=== PATIENT | female | born 1950 | race Caucasian/White ===

== ENCOUNTER 2021-05-01 10:13 | Outpatient (REF) | payer MEDICARE, SELFPAY ==
[2021-05-01 13:57] LABS: Hemoglobin 13.1 g/dl (12.0-16.0); Mean Corpuscular HGB Conc 32.8 g/dl (31.0-35.0); Mean Corpuscular Hemoglobin 30.5 pg (27.0-33.0); Mean Platelet Volume 11.3 fL (9.4-12.3); Platelet Count 202 X10*3/uL (160-400); Red Cell Distribution Width 12.8 % (11.0-16.0); White Blood Count 6.4 X10*3/uL (4.8-10.8)
[2021-05-01 14:35] LABS: Alanine Aminotransferase 20 U/L (0-31); Albumin Level 4.1 g/dL (3.5-5.0); Alkaline Phosphatase 60 U/L (39-117); Anion Gap 11 (12-20); Aspartate Amino Transferase 18 U/L (5-31); Bilirubin Total 0.4 mg/dL (0.0-1.0); Blood Urea Nitrogen 21 mg/dL (9-16); Calcium 9.9 mg/dL (8.4-10.2); Carbon Dioxide 26 mmol/L (22-29); Chloride 108 mmol/L (96-108); Cholesterol 153 mg/dL; Estimated Glomerular Filt Rate 46; Glucose Fasting 83 mg/dL (60-99); HDL Cholesterol 52 mg/dL; LDL Cholesterol Calculated 67 mg/dl; Potassium 4.7 mmol/L (3.3-5.1); Sodium 140 mmol/L (135-145); Total Protein 6.5 g/dL (6.5-8.0); Triglycerides 172 mg/dL
[2021-05-01 14:46] LABS: TSH reflex Free T4 1.04 uIU/mL (0.32-4.0)
== END 2021-05-01 10:14 | disposition home or self-care (01) ==
LOC: HO.WFDLDS 10:13
PROVIDERS: Visit Provider Hospitalist
DX: K50.90 Crohn's disease, unspecified, without complications (principal); E03.9 Hypothyroidism, unspecified; R82.90 Unspecified abnormal findings in urine; Z86.2 Personal history of diseases of the blood and blood-forming organs and certain disorders involving the immune mechanism; Z86.73 Personal history of transient ischemic attack (TIA), and cerebral infarction without residual deficits
CPT/HCPCS: 36415; 80053; 80061; 84443; 85027; 87086; 87088; 87186

== ENCOUNTER 2021-06-04 11:20 | Outpatient (REF) | payer MEDICARE, SELFPAY | END 2021-06-04 11:21 | disposition home or self-care (01) | LOC: HO.LAB 11:20 | PROVIDERS: Visit Provider Hospitalist | DX: Z20.822 Contact with and (suspected) exposure to COVID-19 (principal); J06.9 Acute upper respiratory infection, unspecified | CPT/HCPCS: U0003; U0005 ==

== ENCOUNTER 2021-07-07 09:51 | Outpatient (REF) | payer MEDICARE, SELFPAY ==
[2021-07-07 10:30] LABS: MANUAL DIFF FLAG NO
[2021-07-07 10:56] LABS: Basophils Percent Auto 0.4 % (0-2); Eosinophils Absolute Auto 0.2 X10*3/uL (0.0-0.4); Eosinophils Percent Auto 2.2 % (0-4); Hematocrit 39.2 % (37.0-47.0); Hemoglobin 12.6 g/dl (12.0-16.0); Imm Gran Abs Auto 0.02 X10*3/uL (0.00-0.03); Imm Gran Pct Auto 0.3 % (0.0-0.4); Lymphocytes Percent Auto 14.4 % (20-40); Mean Corpuscular HGB Conc 32.1 g/dl (31.0-35.0); Mean Corpuscular Hemoglobin 29.6 pg (27.0-33.0); Mean Corpuscular Volume 92.2 fL (80.0-98.0); Mean Platelet Volume 10.4 fL (9.4-12.3); Monocytes Absolute Auto 0.6 X10*3/uL (0.1-1.2); Neutrophils Absolute Auto 5.1 x10*3/uL (2.0-8.3); Neutrophils Percent Auto 74.7 % (45-73); Platelet Count 136 X10*3/uL (160-400); Red Blood Count 4.25 X10*6/uL (4.20-5.50); White Blood Count 6.9 X10*3/uL (4.8-10.8)
[2021-07-07 11:11] LABS: Alanine Aminotransferase 23 U/L (0-31); Albumin Level 3.9 g/dL (3.5-5.0); Alkaline Phosphatase 52 U/L (39-117); Anion Gap 13 (12-20); Aspartate Amino Transferase 17 U/L (5-31); Bilirubin Total 0.4 mg/dL (0.0-1.0); Blood Urea Nitrogen 20 mg/dL (9-16); Calcium 9.4 mg/dL (8.4-10.2); Chloride 105 mmol/L (96-108); Estimated Glomerular Filt Rate 50; Glucose Random 99 mg/dL (60-115); Potassium 4.6 mmol/L (3.3-5.1); Sodium 138 mmol/L (135-145); Total Protein 6.3 g/dL (6.5-8.0)
[2021-07-07 11:13] LABS: Carbon Dioxide 25 mmol/L (22-29)
[2021-07-07 11:33] LABS: TSH reflex Free T4 1.26 uIU/mL (0.32-4.0)
[2021-07-07 11:40] LABS: Erythrocyte Sedimentation Rate 16 MM/HR (0-20)
[2021-07-07 14:58] LABS: Appearance Urine CLEAR; Color Urine YELLOW; Glucose Urine UA NEG (NEG); Leukocyte Esterase Urine NEG (NEG); Nitrite Urine NEG (NEG); PH 5.5 (5.0-8.0); Specific Gravity - Urine >= 1.030 (1.005-1.025); Urine Blood NEG (NEG); Urine Ketones NEG (NEG); Urine Protein NEG (NEG-TRACE)
== END 2021-07-07 09:52 | disposition home or self-care (01) ==
LOC: HO.WFDLDS 09:51
PROVIDERS: Visit Provider Family Medicine
DX: Z00.00 Encounter for general adult medical examination without abnormal findings (principal); G43.109 Migraine with aura, not intractable, without status migrainosus
CPT/HCPCS: 36415; 80053; 81003; 84443; 85025; 85652

== ENCOUNTER 2022-02-24 10:50 | Outpatient (REF) | payer MEDICARE, SELFPAY ==
[2022-02-24 14:07] LABS: Hematocrit 41.3 % (37.0-47.0); Hemoglobin 13.7 g/dl (12.0-16.0); Mean Corpuscular HGB Conc 33.2 g/dl (31.0-35.0); Mean Corpuscular Hemoglobin 30.2 pg (27.0-33.0); Mean Platelet Volume 10.5 fL (9.4-12.3); Platelet Count 208 X10*3/uL (160-400); Red Blood Count 4.54 X10*6/uL (4.20-5.50); Red Cell Distribution Width 13.2 % (11.0-16.0); White Blood Count 6.4 X10*3/uL (4.8-10.8)
[2022-02-24 14:38] LABS: Anion Gap 16 (12-20); Blood Urea Nitrogen 14 mg/dL (9-16); Calcium 9.4 mg/dL (8.4-10.2); Carbon Dioxide 23 mmol/L (22-29); Chloride 108 mmol/L (96-108); Estimated Glomerular Filt Rate 48; Glucose Random 112 mg/dL (60-115); Potassium 3.8 mmol/L (3.3-5.1); Sodium 143 mmol/L (135-145)
[2022-02-24 14:49] LABS: TSH reflex Free T4 2.07 uIU/mL (0.32-4.0)
== END 2022-02-24 10:51 | disposition home or self-care (01) ==
LOC: HO.WFDLDS 10:50
PROVIDERS: Visit Provider Hospitalist
DX: K50.90 Crohn's disease, unspecified, without complications (principal); E03.9 Hypothyroidism, unspecified; Z86.2 Personal history of diseases of the blood and blood-forming organs and certain disorders involving the immune mechanism
CPT/HCPCS: 36415; 80048; 84443; 85027

== ENCOUNTER → 2022-03-03 09:21 | Outpatient (BNVA) | payer MEDICARE, SELFPAY | PROVIDERS: PCP Hospitalist; Referring Provider Hospitalist; Visit Provider Physician Assistant | DX: K50.90 Crohn's disease, unspecified, without complications (principal); K44.9 Diaphragmatic hernia without obstruction or gangrene; K21.9 Gastro-esophageal reflux disease without esophagitis | CPT/HCPCS: 99202 ==

== ENCOUNTER 2022-04-27 11:48 | Outpatient (REF) | payer MEDICARE, SELFPAY ==
[2022-04-27 15:23] LABS: Vitamin B12 314 pg/mL (200-900)
== END 2022-04-27 11:49 | disposition home or self-care (01) ==
LOC: HO.WFDLDS 11:48
PROVIDERS: Visit Provider Hospitalist
DX: E53.8 Deficiency of other specified B group vitamins (principal)
CPT/HCPCS: 36415; 82607

== ENCOUNTER 2022-07-09 11:37 | Outpatient (REF) | payer MEDICARE, SELFPAY ==
[2022-07-09 14:30] LABS: Vitamin B12 221 pg/mL (200-900)
== END 2022-07-09 11:38 | disposition home or self-care (01) ==
LOC: HO.WFDLDS 11:37
PROVIDERS: Visit Provider Hospitalist
DX: E53.8 Deficiency of other specified B group vitamins (principal)
CPT/HCPCS: 36415; 82607

== ENCOUNTER 2023-01-27 08:34 | Outpatient (AMB) | payer MEDICARE, SELFPAY ==
--- NOTE | 2023-01-27 08:36 | A.OFFPC_ITS ---
Vital Signs 01/27/23 08:37 Height 5 ft 3 in Weight 135 lb 6 oz BMI 24.0 BP 128/70 Blood Pressure Location Rt brachial Position Sitting Respiration 12 Pulse 90 Pulse Source Pulse Oximeter Temp 97.2 F Temp Source Temporal Artery Scan Pulse Oximetry (%) 99 Oxygen Delivery Method Room Air Intake Visit Reasons: Comprehensive exam with f/u labs Intake Note: Patient states that she had talked to Faye about B-12 shots and since Faye hasn't been here she would like to supervisor opening and picking where they left off. Patient states that she spoke to her Gastro provider and the Gastro provider agreed that the B- 12 shots should be taken. Patient states that she has also been having migraines more frequently. Patient is also interested in getting info on the new RSV vaccinations and if it would be ideal for her to get. Patient also would like to know if she needs to be taking iron pills due to her no longer taking it for 6 months due to her PCP being away and unable to get a refill. Patient states that she is highly concerned about Onset Dementia. Patient states she would need refill on Duloxetine, Requip, Ativan, Cymbalta and Iron pills if needed. Diver Assistant Required: No Accompanied by: Self / Same As Patient Allergies codeine Allergy (Severe, Verified 01/27/23 09:02) Vomiting/nausea omeprazole [From Prilosec] Allergy (Severe, Verified 01/27/23 09:02) rash erythromycin base Allergy (Mild, Verified 01/27/23 09:02) mild lansoprazole [From Prevacid] Allergy (Mild, Verified 01/27/23 09:02) rash Penicillins Allergy (Mild, Verified 01/27/23 09:02) rash Sulfa (Sulfonamide Antibiotics) Allergy (Mild, Verified 01/27/23 09:02) rash Medication List - Last Reconciled 01/27/23 by Khadijah Colon CNP bupropion HCl 150 mg PO QAM calcium carbonate (Calcium 600) PO .twice clopidogrel 75 mg PO DAILY dicyclomine 10 mg PO TID duloxetine 60 mg PO DAILY famotidine (Pepcid) 40 mg PO BID ferrous sulfate 325 mg PO BID levothyroxine 75 mcg PO DAILY lorazepam (Ativan) 0.5 mg PO DAILY PRN magnesium citrate (SlowMag Muscle Recovery) mg PO rabeprazole (AcipHex) 20 mg PO BID ropinirole on in the am and noon then 2 at hs orally; Tobacco use date assessed: 01/27/23 Fall risk assessment: 2 + Falls in past year Last assessed Fall Risk: 01/27/23 Dental Screening Dental Screen Date: 01/27/23 Did you have a dental visit in the last 12 months?: Yes Did you have a dental problem in the last 6 months where you did not have access to dental care?: No Was dental information given to patient?: Patient has dentist HPI HPI Comments History of Present Illness Details 72-year-old female presents for complete physical exam. She has past medical history significant for anxiety, depression, Crohn's disease, hypothyroidism, restless leg syndrome, GERD, and iron-deficiency anemia. She notes she she has not taken ferrous sulfate for the past 6 months due to refill. She reports experiencing frequent migraines recently. She had the positive response to the PHQ-9 question regarding Thoughts that you would be better off or of hurting yourself in some way. She notes I wish i wasn't here and it'll be over. I just can't catch a break. My teeth are bad but i can't afford to fix them. She notes she consumed a lot of soda beverage over the years and never cared about her oral health. She also reports heightened anxiety and depression symptoms due to family betrayal she learned over the years. She notes sometimes, i think about being reckless when i drive, last reckless driving thoughts was a month ago. She currently denies SI/HI and denies plans of committing suicide. She contracts for safety. She notes she will call the crisis help line. She notes she stopped seeing a therapist 10 years ago. She states it has been challenging finding a therapist since the COVID-19 pandemic. However, she is trying to establish therapist at an independent practice in [place]. She believes she may have early onset of dementia. She notes she is forgetful almost half of the time. She states she does not always remember conversations, appointments or to take her medications. She has medications that her prescribed daily and once daily and notes that she forgets to take at least 6 doses per week. [facility] Medical History Crohn disease Depression Kidney stones Stroke Surgical History H/O hernia repair H/O: hysterectomy History of bowel resection History of cholecystectomy Family History Other Mental health disorder Social History Housing: Other (mobile home) Alcohol intake: never Patient Tobacco Use Status: Former Tobacco user Quit Date: 1979 Smoked: 10 years e-Cigarette/Vaping Use: Never Used Second Hand Smoke Exposure: No service: No Current occupational status: retired Cognitive needs: Yes Hearing needs: No Vision needs: No Questionnaire PHQ-9 Over the last 2 weeks, how often have you been bothered by any of the following problems? 1. Little interest or pleasure in doing things: more than half the days 2. Feeling down, depressed, or hopeless: nearly every day 3. Trouble falling or staying asleep, or sleeping too much: nearly every day 4. Feeling tired or having little energy: more than half the days 5. Poor appetite or overeating: more than half the days 6. Feeling bad about yourself - or that you are a failure or have let yourself or your family down: nearly every day 7. Trouble concentrating on things, such as reading the newspaper or watching television: more than half the days 8. Moving or speaking so slowly that other people could have noticed. Or the opposite - being so fidgety or restless that you have been moving around a lot more than usual: several days 9. Thoughts that you would be better off or of hurting yourself in some way: nearly every day Total score: 21 Depression Screening Interpretation: Positive Source: Developed by Drs. Iban Mcnamara, Martha Kim, Nick Acosta and colleagues, with an educational rosa maria from [employer]. Thrive Questionnaire Date Thrive assessed: 01/27/23 I am a: Patient What is your living situation today?: I have a steady place to live Within the past 12 months, did the food you bought not last and you didn't have the money to get more?: Never true Within the past 12 months, did you worry whether your food would run out before you got money to buy more?: Never true Do you have trouble paying for medicines?: No Do you have trouble getting transportation to medical appointments?: No Do you have trouble paying your heating and electricity bill?: No Do you have trouble taking care of your child, family member or friend?: No Do you have trouble with day-to-day activities such as bathing, preparing meals, shopping, managing finances, etc.?: Yes (taking meds) Are you currently unemployed and looking for a job?: No Are you interested in more education?: No Please select the resources that you would like help with: None Currently or been in a relationship where the following occur: no concerns reported AUDIT C Alcohol Use Questionnaire (AUDIT-C) 1. How often do you have a drink containing alcohol?: Never 3. How often do you have six or more drinks on one occasion?: Never Total Score: 0 VICKIE-7 AMB Questionnaire VICKIE-7 Date VICKIE - 7 assessed: 01/27/23 Feeling nervous, anxious, or on edge: 3 = Nearly every day Not being able to stop or control worryin = Nearly every day Worrying too much about different things: 3 = Nearly every day Trouble relaxin = More than half the days Being so restless that it is hard to sit still: 2 = More than half the days Becoming easily annoyed or irritable: 2 = More than half the days Feeling afraid as if something awful might happen: 1 = Several days Total VICKIE-7 score (0-4 normal; 5-9 mild; 10-14 moderate; 15-21 severe): 16 Source: Developed by Drs. Iban Mcnamara, Martha Kim, Nick Acosta and colleagues, with an educational rosa maria from [employer]. Review of Systems Const Details: Const Denies chills, Denies fatigue, Denies fever(s), Denies headache(s) and Denies weakness ENT Reports poor dentition, Denies dizziness and Denies headache(s) Card Denies chest pain, Denies lightheadedness, Denies dyspnea and Denies other (Palpitations) Resp Denies cough, Denies dyspnea, Denies wheezing and Denies other ( shortness of breath) GI Denies abdominal pain, Denies melena, Denies hematochezia, Denies change in bowel habits, Denies dyspepsia and Denies nausea Denies hematuria and Denies dysuria Musc Denies abnormal gait, Denies myalgias, Denies arthralgias, Denies numbness and Denies tingling Skin/Breast Denies rash, Denies unusual bruising and Denies wounds Neuro Denies abnormal gait, Denies dizziness, Denies headache(s), Denies memory loss, Denies numbness, Denies Sensory deficit (Neuro), Denies tingling and Denies weakness Psych Reports anxiety, Reports depression, Reports memory loss Endo Denies cold intolerance, Denies fatigue, Denies heat intolerance, Denies polydipsia and Denies polyuria Aller/Immun Denies wheezing Physical exam (Primary Care) Vital Signs: Last Vital Signs Temp 97.2 F 01/27/23 08:37 Pulse 90 01/27/23 08:37 Resp 12 01/27/23 08:37 BP 128/70 01/27/23 08:37 Pulse Ox 99 01/27/23 08:37 Oxygen Delivery Method Room Air 01/27/23 08:37 BMI result Body Mass Index 24.0 Tobacco/Smoking Status: Tobacco use Status Tobacco use date assessed 01/27/23 01/27/23 08:52 Patient Tobacco Use Status Former Tobacco user 01/27/23 08:52 e-Cigarette/Vaping Use Never Used 01/27/23 08:52 PHQ-9: PHQ-9 Score PHQ-9: Total score 21 01/27/23 17:28 Depression Screening Interpretation: Positive Thrive Assessment: Date of Thrive Assessment Date Thrive assessed 01/27/23 01/27/23 08:55 Currently or been in a relationship where the following occur: no concerns reported Const Other: General: no acute distress and well developed Nutritional Appearance: well nourished Orientation/consciousness: patient oriented x3 HENMT Head is normocephalic Bilateral ear canal and TM are normal Nasal turbinates and oropharynx are pink and moist Sinuses are nontender with palpation No auricular or cervical lymphadenopathy Decayed and several missing teeth Eyes General: appearance normal, both eyes and all related structures Pupils: Equal, round and reactive pupils present EOM: EOMs intact bilaterally Resp Effort & Inspection: normal respiratory effort Auscultation: clear to auscultation bilaterally Cardio Rate: regular rate Rhythm: regular rhythm Heart sounds: S1 normal heart sound present, S2 normal heart sound present, no gallops, no murmurs and no rubs GI Palpation (GI): No Abdominal aortic bruit present, Soft to palpation, nontender, No hepatosplenomegaly present and No Rebound tenderness present Auscultation: normal bowel sounds General: Yes no CVA tenderness Back/Spine/Pelvis Back: no CVA tenderness Cervical Spine: cervical ROM normal and No Cervical spine tenderness Thoracic/Lumbar Spine: thoraco-lumbar ROM normal, No pain with thoraco-lumbar ROM, No thoracic spinal tenderness and No lumbar spinal tenderness Extrem General: Yes normal to inspection, No edema and No calf tenderness Skin General: warm and dry. Normal skin color. Normal skin turgor Lesions: no lesions Rashes: no rashes Trauma: no lacerations or abrasions Wounds: no wounds Nails: normal Neuro General: patient oriented x3, gait normal and no focal neuro deficit Cranial nerves: Yes Equal, round and reactive pupils present Cognition (Neuro): normal cognition Gait exam (Neuro): Normal gait present Sensory Exam: No Sensory deficit (Neuro) Psych Appearance: grossly normal Affect: Flat Attitude: cooperative Thought process: Normal thought process present Assessment and Plan Assessment & Plan (1) Depression with anxiety: Code(s): F41.8 - Other specified anxiety disorders Plan: PHQ-9 a and VICKIE-7 scores revealed severe depression and anxiety Her forgetfulness, memory loss, and headaches may be attributed to heightened anxiety and depression symptoms Buspirone ordered. Take as prescribed Duloxetine refilled. Take as prescribed Continue to take bupropion as prescribed She met with the community navigator who referred her to neuropsychiatry, and [facility] for services including therapist, psychiatrist, and VNA services for medication management Routine exercise encouraged Advised to contact the crisis health line with suicidal or homicidal ideation Follow-up in 2 weeks or return sooner with worsening or new symptoms Verbalized understanding and agreed with treatment plan. Physical exam deferred due to complexity of this visit. (2) Laboratory tests ordered as part of a complete physical exam (CPE): Code(s): Z00.00 - Encounter for general adult medical examination without abnormal findings Plan: Fasting labs ordered as part of a complete physical exam. Advised to fast for at least 10 hours before getting labs drawn. May drink water Verbalized understanding and agreed with treatment plan. (3) Poor dentition: Code(s): K08.9 - Disorder of teeth and supporting structures, unspecified Plan: Decayed and several missing teeth She notes she is unable to afford dental care Referred to the community navigator to assist the patient resources for dental care Orders: Orders Comprehensive [place]. Panel Fast 01/28/23 Z00. - Encounter for general adult medical examination without abnormal findings Complete Blood Count Auto Diff 01/28/23 Z. - Encounter for general adult medical examination without abnormal findings Lipid Panel 01/28/23. - Encounter for general adult medical examination without abnormal findings TSH reflex Free T4 01/28/23 Z. - Encounter for general adult medical examination without abnormal findings Vitamin B12 and Folate 01/28/23 Z00. - Encounter for general adult medical examination without abnormal findings Referrals Nurse Navigator Referral K08.9 - Disorder of teeth and supporting structures, unspecified Medications: New buspirone 7.5 mg PO BID 60 tabs 2RF 30 days Changed From ropinirole on in the am and noon then 2 at hs orally; 120 tabs 5RF To ropinirole one in the am and noon then 2 at hs orally; 120 tabs 3RF Refilled duloxetine 60 mg PO DAILY 90 caps 1RF Coding Level of Care Code Est Pt Level 4 (11558) Diagnoses Depression with anxiety F41.8 Laboratory tests ordered as part of a complete physical exam (CPE) Z00. Poor dentition K08.9
[2023-01-27 08:37] VITALS: BP 128/70; PULSE 90; RESP 12; TEMP 36.2; O2SAT 99; BMI 24.0
== END 2023-01-27 09:44 | disposition home or self-care (01) ==
PROVIDERS: PCP Hospitalist; Visit Provider Nurse Practitioner Family
DX: F41.8 Other specified anxiety disorders (principal); Z00.00 Encounter for general adult medical examination without abnormal findings; K08.9 Disorder of teeth and supporting structures, unspecified
CPT/HCPCS: 99214

== ENCOUNTER 2023-01-28 08:12 | Outpatient (REF) | payer MEDICARE, SELFPAY ==
[2023-01-28 11:10] LABS: MANUAL DIFF FLAG NO
[2023-01-28 11:30] LABS: Basophils Percent Auto 0.8 % (0-2); Eosinophils Absolute Auto 0.2 X10*3/uL (0.0-0.4); Hemoglobin 13.5 g/dl (12.0-16.0); Imm Gran Abs Auto 0.01 X10*3/uL (0.00-0.03); Imm Gran Pct Auto 0.2 % (0.0-0.4); Lymphocytes Absolute Auto 0.7 X10*3/uL (1.2-4.9); Lymphocytes Percent Auto 13.4 % (20-40); Mean Corpuscular HGB Conc 32.9 g/dl (31.0-35.0); Mean Corpuscular Hemoglobin 29.9 pg (27.0-33.0); Mean Corpuscular Volume 90.9 fL (80.0-98.0); Mean Platelet Volume 11.2 fL (9.4-12.3); Monocytes Absolute Auto 0.4 X10*3/uL (0.1-1.2); Monocytes Percent Auto 7.9 % (2-11); Neutrophils Absolute Auto 3.8 x10*3/uL (2.0-8.3); Neutrophils Percent Auto 74.7 % (45-73); Platelet Count 204 X10*3/uL (160-400); Red Blood Count 4.51 X10*6/uL (4.20-5.50); Red Cell Distribution Width 13.3 % (11.0-16.0); White Blood Count 5.1 X10*3/uL (4.8-10.8)
[2023-01-28 11:55] LABS: Alanine Aminotransferase 53 U/L (0-31); Albumin Level 4.2 g/dL (3.5-5.0); Alkaline Phosphatase 61 U/L (39-117); Anion Gap 12 (12-20); Aspartate Amino Transferase 40 U/L (5-31); Bilirubin Total 0.6 mg/dL (0.0-1.0); Blood Urea Nitrogen 22 mg/dL (9-16); Calcium 10.2 mg/dL (8.4-10.2); Carbon Dioxide 25 mmol/L (22-29); Chloride 107 mmol/L (96-108); Cholesterol 181 mg/dL (<200); Estimated Glomerular Filt Rate 53; Glucose Fasting 98 mg/dL (60-99); HDL Cholesterol 61 mg/dL (>40); LDL Cholesterol Calculated 91 mg/dL (<100); Sodium 140 mmol/L (135-145); Triglycerides 149 mg/dL (<150)
[2023-01-28 12:02] LABS: TSH reflex Free T4 1.93 uIU/mL (0.32-4.0)
[2023-01-28 12:13] LABS: Folate 10.2 ng/mL (> or = 4.0); Vitamin B12 219 pg/mL (200-900)
== END 2023-01-28 08:13 | disposition home or self-care (01) ==
LOC: HO.WFDLDS 08:12
PROVIDERS: Visit Provider Nurse Practitioner Family
DX: Z00.00 Encounter for general adult medical examination without abnormal findings (principal)
CPT/HCPCS: 36415; 80053; 80061; 82607; 82746; 84443; 85025

== ENCOUNTER 2023-02-10 13:13 | Outpatient (AMB) | payer MEDICARE, SELFPAY ==
[2023-02-10 13:17] VITALS: BP 130/80; PULSE 107; RESP 12; TEMP 36.6; O2SAT 98; BMI 24.3
--- NOTE | 2023-02-10 13:17 | MHC.PC.OV ---
Vital Signs 02/10/23 13:17 Height 5 ft 3 in Weight 137 lb 2 oz BMI 24.3 BP 130/80 Blood Pressure Location Lt brachial Position Sitting Respiration 12 Pulse 107 H Pulse Source Pulse Oximeter Temp 97.8 F Temp Source Temporal Artery Scan Pulse Oximetry (%) 98 Oxygen Delivery Method Room Air Intake Visit Reasons: 2 wks anxiety, depression Armed Security Officer Required: No Accompanied by: Self / Same As Patient Allergies codeine Allergy (Severe, Verified 02/10/23 13:52) Vomiting/nausea omeprazole [From Prilosec] Allergy (Severe, Verified 02/10/23 13:52) rash erythromycin base Allergy (Mild, Verified 02/10/23 13:52) mild lansoprazole [From Prevacid] Allergy (Mild, Verified 02/10/23 13:52) rash Penicillins Allergy (Mild, Verified 02/10/23 13:52) rash Sulfa (Sulfonamide Antibiotics) Allergy (Mild, Verified 02/10/23 13:52) rash Medication List - Last Reconciled 02/10/23 by Khadijah Colon CNP bupropion HCl 150 mg PO QAM buspirone 7.5 mg PO BID 30 days calcium carbonate (Calcium 600) PO .twice clopidogrel 75 mg PO DAILY dicyclomine 10 mg PO TID duloxetine 60 mg PO DAILY famotidine (Pepcid) 40 mg PO BID ferrous sulfate 325 mg PO BID levothyroxine 75 mcg PO DAILY lorazepam (Ativan) 0.5 mg PO DAILY PRN magnesium citrate (SlowMag Muscle Recovery) mg PO rabeprazole (AcipHex) 20 mg PO BID ropinirole one in the am and noon then 2 at hs orally; Tobacco use date assessed: 01/27/23 Fall risk assessment: 2 + Falls in past year Last assessed Fall Risk: 02/10/23 Dental Screening Dental Screen Date: 02/10/23 Did you have a dental visit in the last 12 months?: Yes Did you have a dental problem in the last 6 months where you did not have access to dental care?: No Was dental information given to patient?: Patient has dentist HPI HPI Comments History of Present Illness Details 72-year-old female presents for anxiety and depression follow-up. She is on bupropion, duloxetine, and Ativan. Buspirone was added to her treatment plan at her last visit. She notes she has been taking her medications as prescribed with improvement of her symptoms. She notes that her mood have been improving. She is less critical of herself; she is less critical of her she physically presents herself. She notes she was contacted regarding VNA services and behavioral therapy. However, she declined VNA services. The patient and her son decided to manage the patient's medications. She notes that she was informed our office will reach out again regarding behavioral therapy. She has a positive response to the PHQ-9 question regarding Thoughts that you would be better off or of hurting yourself in some way. She notes she has made multiple mistakes in her life and thinks she would be better off not being alive. She denies SI/HI, plan of committing suicide, and contracts for safety. [facility] Medical History Kidney stones Stroke Crohn disease Depression Surgical History History of cholecystectomy H/O hernia repair History of bowel resection H/O: hysterectomy Family History Other Mental health disorder Social History Housing: Other (mobile home) Alcohol intake: never Patient Tobacco Use Status: Former Tobacco user Quit Date: 1979 Years Smoked: 10 years e-Cigarette/Vaping Use: Never Used Second Hand Smoke Exposure: No service: No Current occupational status: retired Cognitive needs: No Hearing needs: No Vision needs: No Questionnaire PHQ-9 Over the last 2 weeks, how often have you been bothered by any of the following problems? 1. Little interest or pleasure in doing things: several days 2. Feeling down, depressed, or hopeless: more than half the days 3. Trouble falling or staying asleep, or sleeping too much: nearly every day 4. Feeling tired or having little energy: more than half the days 5. Poor appetite or overeating: several days 6. Feeling bad about yourself - or that you are a failure or have let yourself or your family down: nearly every day 7. Trouble concentrating on things, such as reading the newspaper or watching television: several days 8. Moving or speaking so slowly that other people could have noticed. Or the opposite - being so fidgety or restless that you have been moving around a lot more than usual: not at all 9. Thoughts that you would be better off or of hurting yourself in some way: nearly every day Total score: 16 Depression Screening Interpretation: Positive Depression Screening Follow-up: Existing condition and In treatment Source: Developed by Drs. Iban Mcnamara, Nick Sotelo and colleagues, with an educational rosa maria from [employer]. Thrive Questionnaire Date Thrive assessed: 01/27/23 VICKIE-7 AMB Questionnaire VICKIE-7 Date VICKIE - 7 assessed: 01/27/23 Feeling nervous, anxious, or on edge: 1 = Several days Not being able to stop or control worryin = Several days Worrying too much about different things: 2 = More than half the days Trouble relaxin = Several days Being so restless that it is hard to sit still: 0 = Not at all Becoming easily annoyed or irritable: 1 = Several days Feeling afraid as if something awful might happen: 0 = Not at all Total VICKIE-7 score (0-4 normal; 5-9 mild; 10-14 moderate; 15-21 severe): 6 Source: Developed by Drs. Iban Mcnamara, Nick Sotelo and colleagues, with an educational rosa maria from [employer]. Review of Systems Const Details: Const Denies chills, Denies fatigue, Denies fever(s), Denies headache(s) and Denies weakness ENT Denies dizziness and Denies headache(s) Card Denies chest pain, Denies lightheadedness, Denies dyspnea and Denies other (Palpitations) Resp Denies cough, Denies dyspnea, Denies wheezing and Denies other ( shortness of breath) GI Denies abdominal pain, Denies melena, Denies hematochezia, Denies change in bowel habits, Denies dyspepsia and Denies nausea Denies hematuria and Denies dysuria Musc Denies abnormal gait, Denies myalgias, Denies arthralgias, Denies numbness and Denies tingling Skin/Breast Denies rash, Denies unusual bruising and Denies wounds Neuro Denies abnormal gait, Denies dizziness, Denies headache(s), Denies memory loss, Denies numbness, Denies Sensory deficit (Neuro), Denies tingling and Denies weakness Psych Denies anxiety, Denies depression, Denies memory loss Endo Denies cold intolerance, Denies fatigue, Denies heat intolerance, Denies polydipsia and Denies polyuria Aller/Immun Denies wheezing Physical exam (Primary Care) Vital Signs: Last Vital Signs Temp 97.8 F 02/10/23 13:17 Pulse 107 H 02/10/23 13:17 Resp 12 02/10/23 13:17 BP 130/80 02/10/23 13:17 Pulse Ox 98 02/10/23 13:17 Oxygen Delivery Method Room Air 02/10/23 13:17 BMI result Body Mass Index 24.3 Tobacco/Smoking Status: Tobacco use Status Tobacco use date assessed 01/27/23 02/10/23 13:26 Patient Tobacco Use Status Former Tobacco user 02/10/23 13:26 e-Cigarette/Vaping Use Never Used 02/10/23 13:26 PHQ-9: PHQ-9 Score PHQ-9: Total score 16 02/10/23 13:30 Depression Screening Interpretation: Positive Depression Screening Follow-up: Existing condition and In treatment Thrive Assessment: Date of Thrive Assessment Date Thrive assessed 01/27/23 02/10/23 13:26 Const Other: General: no acute distress and well developed Nutritional Appearance: well nourished Orientation/consciousness: patient oriented x3 HENMT Head: Yes normocephalic and Yes atraumatic Eyes General: appearance normal, both eyes and all related structures Pupils: Equal, round and reactive pupils present EOM: EOMs intact bilaterally Resp Effort & Inspection: normal respiratory effort Auscultation: clear to auscultation bilaterally Cardio Rate: regular rate Rhythm: regular rhythm Heart sounds: S1 normal heart sound present, S2 normal heart sound present, no gallops, no murmurs and no rubs GI Palpation (GI): No Abdominal aortic bruit present, Soft to palpation, nontender, No hepatosplenomegaly present and No Rebound tenderness present Auscultation: normal bowel sounds General: Yes no CVA tenderness Back/Spine/Pelvis Back: no CVA tenderness Cervical Spine: cervical ROM normal and No Cervical spine tenderness Thoracic/Lumbar Spine: thoraco-lumbar ROM normal, No pain with thoraco-lumbar ROM, No thoracic spinal tenderness and No lumbar spinal tenderness Extrem General: Yes normal to inspection, No edema and No calf tenderness Skin General: warm and dry. Normal skin color. Normal skin turgor Lesions: no lesions Rashes: no rashes Trauma: no lacerations or abrasions Wounds: no wounds Nails: normal Neuro General: patient oriented x3, gait normal and no focal neuro deficit Cranial nerves: Yes Equal, round and reactive pupils present Cognition (Neuro): normal cognition Gait exam (Neuro): Normal gait present Sensory Exam: No Sensory deficit (Neuro) Psych Appearance: grossly normal Affect: normal affect Attitude: cooperative Thought process: Normal thought process present Assessment and Plan Assessment & Plan (1) Depression with anxiety: Code(s): F41.8 - Other specified anxiety disorders Plan: PHQ-9 and VICKIE-7 score revealed moderately severe depression and mild anxiety respectively. This is a significant improvement since previous visit. Continue with current treatment regimen Routine exercise encouraged Message sent to the community navigator to follow-up on referrals that were placed Advised to follow-up in 2 weeks or return sooner with worsening or new symptoms Verbalized understanding and agreed with treatment plan. Recent lab results reviewed with the patient; findings were unrevealing. No change to care plan at this time. Coding Level of Care Code Est Pt Level 3 (83461) Diagnoses Depression with anxiety F41.8
== END 2023-02-10 14:13 | disposition home or self-care (01) ==
PROVIDERS: PCP Hospitalist; Visit Provider Nurse Practitioner Family
DX: F41.8 Other specified anxiety disorders (principal)
CPT/HCPCS: 99213

== ENCOUNTER 2023-02-25 11:24 | Outpatient (AMB) | payer OTHER, SELFPAY ==
--- NOTE | 2023-02-25 11:28 | MHC.PC.OV ---
Vital Signs 02/25/23 11:31 02/25/23 12:03 Height 5 ft 3 in Weight 136 lb 6 oz BMI 24.2 BP 128/66 Blood Pressure Location Rt brachial Position Sitting Respiration 12 Pulse 115 H 70 Pulse Source Pulse Oximeter Auscultation Temp 97.1 F Temp Source Temporal Artery Scan Pulse Oximetry (%) 98 Oxygen Delivery Method Room Air Intake Visit Reasons: 2 wks anxiety, depression Intake Note: Patient states that she had a change of insurance and would need new scripts sent over. Home Health Outreach Coordinator Required: No Accompanied by: Self / Same As Patient Allergies codeine Allergy (Severe, Verified 02/25/23 11:43) Vomiting/nausea omeprazole [From Prilosec] Allergy (Severe, Verified 02/25/23 11:43) rash erythromycin base Allergy (Mild, Verified 02/25/23 11:43) mild lansoprazole [From Prevacid] Allergy (Mild, Verified 02/25/23 11:43) rash Penicillins Allergy (Mild, Verified 02/25/23 11:43) rash Sulfa (Sulfonamide Antibiotics) Allergy (Mild, Verified 02/25/23 11:43) rash Medication List - Last Reconciled 02/25/23 by Khadijah Colon CNP bupropion HCl 150 mg PO QAM buspirone 7.5 mg PO BID 30 days calcium carbonate (Calcium 600) PO .twice clopidogrel 75 mg PO DAILY dicyclomine 10 mg PO TID duloxetine 60 mg PO DAILY famotidine (Pepcid) 40 mg PO BID ferrous sulfate 325 mg PO BID levothyroxine 75 mcg PO DAILY lorazepam (Ativan) 0.5 mg PO DAILY PRN magnesium citrate (SlowMag Muscle Recovery) mg PO rabeprazole (AcipHex) 20 mg PO BID ropinirole one in the am and noon then 2 at hs orally; Tobacco use date assessed: 01/27/23 Fall risk assessment: 2 + Falls in past year Last assessed Fall Risk: 02/25/23 Dental Screening Dental Screen Date: 02/25/23 Did you have a dental visit in the last 12 months?: Yes Did you have a dental problem in the last 6 months where you did not have access to dental care?: No Was dental information given to patient?: Patient has dentist HPI HPI Comments History of Present Illness Details 72-year-old female presents for weeks follow-up for anxiety and depression. She is on buspirone, bupropion, and duloxetine. She admits to taking her medications as prescribed with significant improvement of her symptoms. She states that she recently started cooking and baking, things she enjoys doing but was unable to do in a while. She is also excited that she is now available to help of family members with daily activities. Also, she no longer has thoughts that that she would be better off or hurting herself in some way. She states she has not been contacted to establish with a therapist. She notes that she has and will plan and requests refills of her medications. [facility] Medical History Kidney stones Stroke Crohn disease Depression Surgical History History of cholecystectomy H/O hernia repair History of bowel resection H/O: hysterectomy Family History Other Mental health disorder Social History Housing: Other (mobile home) Alcohol intake: never Patient Tobacco Use Status: Former Tobacco user Quit Date: 1979 Years Smoked: 10 years e-Cigarette/Vaping Use: Never Used Second Hand Smoke Exposure: No service: No Current occupational status: retired Cognitive needs: No Hearing needs: No Vision needs: No Questionnaire PHQ-9 Over the last 2 weeks, how often have you been bothered by any of the following problems? 1. Little interest or pleasure in doing things: several days 2. Feeling down, depressed, or hopeless: several days 3. Trouble falling or staying asleep, or sleeping too much: more than half the days 4. Feeling tired or having little energy: several days 5. Poor appetite or overeating: several days 6. Feeling bad about yourself - or that you are a failure or have let yourself or your family down: several days 7. Trouble concentrating on things, such as reading the newspaper or watching television: several days 8. Moving or speaking so slowly that other people could have noticed. Or the opposite - being so fidgety or restless that you have been moving around a lot more than usual: not at all 9. Thoughts that you would be better off or of hurting yourself in some way: not at all Total score: 8 Depression Screening Interpretation: Positive Depression Screening Follow-up: Existing condition and In treatment Depression Screening Done: Yes Source: Developed by Drs. Iban Mcnamara, Martha Kim, Nick Acosta and colleagues, with an educational rosa maria from [employer]. Thrive Questionnaire Date Thrive assessed: 01/27/23 VICKIE-7 AMB Questionnaire VICKIE-7 Date VICKIE - 7 assessed: 02/25/23 Feeling nervous, anxious, or on edge: 2 = More than half the days Not being able to stop or control worryin = Several days Worrying too much about different things: 1 = Several days Trouble relaxin = Not at all Being so restless that it is hard to sit still: 0 = Not at all Becoming easily annoyed or irritable: 1 = Several days Feeling afraid as if something awful might happen: 0 = Not at all Total VICKIE-7 score (0-4 normal; 5-9 mild; 10-14 moderate; 15-21 severe): 5 Source: Developed by Drs. Iban Mcnamara, Martha Kim, Nick Acosta and colleagues, with an educational rosa maria from [employer]. Review of Systems Const Details: Const Denies chills, Denies fatigue, Denies fever(s), Denies headache(s) and Denies weakness ENT Denies dizziness and Denies headache(s) Card Denies chest pain, Denies lightheadedness, Denies dyspnea and Denies other (Palpitations) Resp Denies cough, Denies dyspnea, Denies wheezing and Denies other ( shortness of breath) GI Denies abdominal pain, Denies melena, Denies hematochezia, Denies change in bowel habits, Denies dyspepsia and Denies nausea Denies hematuria and Denies dysuria Musc Denies abnormal gait, Denies myalgias, Denies arthralgias, Denies numbness and Denies tingling Skin/Breast Denies rash, Denies unusual bruising and Denies wounds Neuro Denies abnormal gait, Denies dizziness, Denies headache(s), Denies memory loss, Denies numbness, Denies Sensory deficit (Neuro), Denies tingling and Denies weakness Psych Denies anxiety, Denies depression, Denies memory loss Endo Denies cold intolerance, Denies fatigue, Denies heat intolerance, Denies polydipsia and Denies polyuria Aller/Immun Denies wheezing Physical exam (Primary Care) Vital Signs: Last Vital Signs Temp 97.1 F 02/25/23 11:31 Pulse 70 02/25/23 12:03 Resp 12 02/25/23 11:31 BP 128/66 02/25/23 11:31 Pulse Ox 98 02/25/23 11:31 Oxygen Delivery Method Room Air 02/25/23 11:31 BMI result Body Mass Index 24.2 Tobacco/Smoking Status: Tobacco use Status Tobacco use date assessed 01/27/23 02/25/23 11:29 Patient Tobacco Use Status Former Tobacco user 02/25/23 11:29 e-Cigarette/Vaping Use Never Used 02/25/23 11:29 PHQ-9: PHQ-9 Score PHQ-9: Total score 8 02/25/23 11:44 Depression Screening Interpretation: Positive Depression Screening Follow-up: Existing condition and In treatment Thrive Assessment: Date of Thrive Assessment Date Thrive assessed 01/27/23 02/25/23 11:29 Const Other: General: no acute distress and well developed Nutritional Appearance: well nourished Orientation/consciousness: patient oriented x3 HENMT Head: Yes normocephalic and Yes atraumatic Eyes General: appearance normal, both eyes and all related structures Pupils: Equal, round and reactive pupils present EOM: EOMs intact bilaterally Resp Effort & Inspection: normal respiratory effort Auscultation: clear to auscultation bilaterally Cardio Rate: regular rate Rhythm: regular rhythm Heart sounds: S1 normal heart sound present, S2 normal heart sound present, no gallops, no murmurs and no rubs GI Palpation (GI): No Abdominal aortic bruit present, Soft to palpation, nontender, No hepatosplenomegaly present and No Rebound tenderness present Auscultation: normal bowel sounds General: Yes no CVA tenderness Back/Spine/Pelvis Back: no CVA tenderness Cervical Spine: cervical ROM normal and No Cervical spine tenderness Thoracic/Lumbar Spine: thoraco-lumbar ROM normal, No pain with thoraco-lumbar ROM, No thoracic spinal tenderness and No lumbar spinal tenderness Extrem General: Yes normal to inspection, No edema and No calf tenderness Skin General: warm and dry. Normal skin color. Normal skin turgor Lesions: no lesions Rashes: no rashes Trauma: no lacerations or abrasions Wounds: no wounds Nails: normal Neuro General: patient oriented x3, gait normal and no focal neuro deficit Cranial nerves: Yes Equal, round and reactive pupils present Cognition (Neuro): normal cognition Gait exam (Neuro): Normal gait present Sensory Exam: No Sensory deficit (Neuro) Psych Appearance: grossly normal Affect: normal affect Attitude: cooperative Thought process: Normal thought process present Assessment and Plan Assessment & Plan (1) Depression with anxiety: Code(s): F41.8 - Other specified anxiety disorders Plan: PHQ-9 and VICKIE-7 scores revealed mild depression and anxiety Continue with current treatment regimen Routine exercise encouraged I spoke with the community navigator who informed me that the patient's previous health plan was not accepted by many therapists. However, her new plan may be accepted. A new referral has been placed for a therapist. She is advised to contact the community navigator if she does not receive a call to connect with a therapist in the next 3-4 weeks Advised to follow-up in 1 month or return sooner with worsening or new symptoms Verbalized understanding and agreed with treatment plan. (2) Transaminitis: Code(s): R74.01 - Elevation of levels of liver transaminase levels Plan: Recent lab results reviewed with the patient AST and ALT are slightly elevated, 40 and 53 respectively She denies alcohol consumption. She is not obese Likely NAFLD Will repeat liver panel. Advised to fast for at least 10 hours before getting blood work done Follow-up in 1 month or return sooner with symptoms or concerns Verbalized understanding and agreed with treatment plan. Orders: Orders Liver Panel Today R74.01 - Elevation of levels of liver transaminase levels Medications: Refilled ropinirole one in the am and noon then 2 at hs orally; 120 tabs 3RF levothyroxine 75 mcg PO DAILY 90 tabs 3RF clopidogrel 75 mg PO DAILY 90 tabs 1RF duloxetine 60 mg PO DAILY 90 caps 1RF bupropion HCl 150 mg PO QAM 90 tabs 3RF buspirone 7.5 mg PO BID 60 tabs 2RF 30 days Coding Level of Care Code Est Pt Level 3 (81255) Diagnoses Depression with anxiety F41.8 Transaminitis R74.01
[2023-02-25 11:31] VITALS: BP 128/66; PULSE 115; RESP 12; TEMP 36.2; O2SAT 98; BMI 24.2
[2023-02-25 12:03] VITALS: PULSE 70
== END 2023-02-25 12:06 | disposition home or self-care (01) ==
PROVIDERS: PCP Hospitalist; Visit Provider Nurse Practitioner Family
DX: F41.8 Other specified anxiety disorders (principal); R74.01 Elevation of levels of liver transaminase levels
CPT/HCPCS: 99213

== ENCOUNTER 2023-04-01 10:00 | Outpatient (AMB) | payer OTHER, SELFPAY ==
--- NOTE | 2023-04-01 10:11 | MHC.PC.OV ---
Vital Signs 04/01/23 10:12 04/01/23 10:38 Height 5 ft 3 in Weight 137 lb BMI 24.3 BP 144/68 H 144/80 H Blood Pressure Location Lt brachial Lt brachial Position Sitting Sitting Respiration 13 Pulse 98 Pulse Source Pulse Oximeter Pulse Oximetry (%) 99 Oxygen Delivery Method Room Air Intake Visit Reasons: 1 month anxiety, depression, labs review Intake Note: Patient is here for a 1 month follow up for depression and anxiety. Patient is also here to review labs drawn on 01/28/23. Patient would like to ask her providers opinion on if she should get the RSV vaccine and if a B12 injection would be beneficial. Client Delivery Specialist Required: No Accompanied by: Self / Same As Patient Allergies codeine Allergy (Severe, Verified 04/01/23 10:33) Vomiting/nausea omeprazole [From Prilosec] Allergy (Severe, Verified 04/01/23 10:33) rash erythromycin base Allergy (Mild, Verified 04/01/23 10:33) mild lansoprazole [From Prevacid] Allergy (Mild, Verified 04/01/23 10:33) rash Penicillins Allergy (Mild, Verified 04/01/23 10:33) rash Sulfa (Sulfonamide Antibiotics) Allergy (Mild, Verified 04/01/23 10:33) rash Medication List - Last Reconciled 04/01/23 by Khadijah Colon CNP bupropion HCl 150 mg PO QAM buspirone 7.5 mg PO BID 30 days calcium carbonate (Calcium 600) PO .twice clopidogrel 75 mg PO DAILY dicyclomine 10 mg PO TID duloxetine 60 mg PO DAILY famotidine (Pepcid) 40 mg PO BID levothyroxine 75 mcg PO DAILY lorazepam (Ativan) 0.5 mg PO DAILY PRN magnesium citrate (SlowMag Muscle Recovery) mg PO rabeprazole (AcipHex) 20 mg PO BID ropinirole one in the am and noon then 2 at hs orally; Tobacco use date assessed: 01/27/23 HPI HPI Comments History of Present Illness Details 73-year-old female presents for weeks follow-up for anxiety and depression. She is on buspirone, bupropion, and duloxetine. She admits to taking her medications as prescribed with significant improvement of her symptoms. She notes that her symptoms have been controlled. She offers no complaints and denies acute symptoms at this time. She notes that she was informed by her meat selector to take IM vitamin B12 injections due to history of Crohn's disease. She has history of vitamin B12 deficiency and iron deficiency anemia. She inquires about getting the RSV vaccine. [facility] Medical History Kidney stones Stroke Crohn disease Depression Surgical History History of cholecystectomy H/O hernia repair History of bowel resection H/O: hysterectomy Family History Other Mental health disorder Social History Housing: Other (mobile home) Alcohol intake: never Patient Tobacco Use Status: Former Tobacco user Quit Date: 1979 Years Smoked: 10 years e-Cigarette/Vaping Use: Never Used Second Hand Smoke Exposure: No service: No Current occupational status: retired Cognitive needs: No Hearing needs: No Vision needs: No Questionnaire PHQ-9 Over the last 2 weeks, how often have you been bothered by any of the following problems? 1. Little interest or pleasure in doing things: not at all 2. Feeling down, depressed, or hopeless: several days 3. Trouble falling or staying asleep, or sleeping too much: more than half the days 4. Feeling tired or having little energy: several days 5. Poor appetite or overeating: not at all 6. Feeling bad about yourself - or that you are a failure or have let yourself or your family down: several days 7. Trouble concentrating on things, such as reading the newspaper or watching television: not at all 8. Moving or speaking so slowly that other people could have noticed. Or the opposite - being so fidgety or restless that you have been moving around a lot more than usual: not at all 9. Thoughts that you would be better off or of hurting yourself in some way: not at all Total score: 5 Depression Screening Interpretation: Positive Depression Screening Follow-up: Existing condition and In treatment Depression Screening Done: Yes 10312 - PHQ-9 Billing: Yes Source: Developed by Moise Summerset B.W. Julio, Nick Acosta and colleagues, with an educational rosa maria from [employer]. Thrive Questionnaire Date Thrive assessed: 01/27/23 VICKIE-7 AMB Questionnaire VICKIE-7 Date VICKIE - 7 assessed: 04/01/23 Feeling nervous, anxious, or on edge: 0 = Not at all Not being able to stop or control worryin = Not at all Worrying too much about different things: 0 = Not at all Trouble relaxin = Not at all Being so restless that it is hard to sit still: 0 = Not at all Becoming easily annoyed or irritable: 1 = Several days Feeling afraid as if something awful might happen: 0 = Not at all Total VICKIE-7 score (0-4 normal; 5-9 mild; 10-14 moderate; 15-21 severe): 1 Source: Developed by Drs. Iban Mcnamara, Martha Kim, Nick Acosta and colleagues, with an educational rosa maria from [employer]. VICKIE-7 Assessment Billing VICKIE-7 Assessment Tool: VICKIE-7 Assessment 78185 Review of Systems Const Details: Const Denies chills, Denies fatigue, Denies fever(s), Denies headache(s) and Denies weakness ENT Denies dizziness and Denies headache(s) Card Denies chest pain, Denies lightheadedness, Denies dyspnea and Denies other (Palpitations) Resp Denies cough, Denies dyspnea, Denies wheezing and Denies other ( shortness of breath) GI Denies abdominal pain, Denies melena, Denies hematochezia, Denies change in bowel habits, Denies dyspepsia and Denies nausea Denies hematuria and Denies dysuria Musc Denies abnormal gait, Denies myalgias, Denies arthralgias, Denies numbness and Denies tingling Skin/Breast Denies rash, Denies unusual bruising and Denies wounds Neuro Denies abnormal gait, Denies dizziness, Denies headache(s), Denies memory loss, Denies numbness, Denies Sensory deficit (Neuro), Denies tingling and Denies weakness Psych Denies anxiety, Denies depression, Denies memory loss Endo Denies cold intolerance, Denies fatigue, Denies heat intolerance, Denies polydipsia and Denies polyuria Aller/Immun Denies wheezing Physical exam (Primary Care) Vital Signs: Last Vital Signs Pulse 98 04/01/23 10:12 Resp 13 04/01/23 10:12 BP 144/68 H 04/01/23 10:12 Pulse Ox 99 04/01/23 10:12 Oxygen Delivery Method Room Air 04/01/23 10:12 BMI result Body Mass Index 24.3 Tobacco/Smoking Status: Tobacco use Status Tobacco use date assessed 01/27/23 04/01/23 10:17 Patient Tobacco Use Status Former Tobacco user 04/01/23 10:17 e-Cigarette/Vaping Use Never Used 04/01/23 10:17 PHQ-9: PHQ-9 Score PHQ-9: Total score 5 04/01/23 10:24 Depression Screening Interpretation: Positive Depression Screening Follow-up: Existing condition and In treatment Thrive Assessment: Date of Thrive Assessment Date Thrive assessed 01/27/23 04/01/23 10:17 Const Other: General: no acute distress and well developed Nutritional Appearance: well nourished Orientation/consciousness: patient oriented x3 HENMT Head: Yes normocephalic and Yes atraumatic Eyes General: appearance normal, both eyes and all related structures Pupils: Equal, round and reactive pupils present EOM: EOMs intact bilaterally Resp Effort & Inspection: normal respiratory effort Auscultation: clear to auscultation bilaterally Cardio Rate: regular rate Rhythm: regular rhythm Heart sounds: S1 normal heart sound present, S2 normal heart sound present, no gallops, no murmurs and no rubs GI Palpation (GI): No Abdominal aortic bruit present, Soft to palpation, nontender, No hepatosplenomegaly present and No Rebound tenderness present Auscultation: normal bowel sounds General: Yes no CVA tenderness Back/Spine/Pelvis Back: no CVA tenderness Cervical Spine: cervical ROM normal and No Cervical spine tenderness Thoracic/Lumbar Spine: thoraco-lumbar ROM normal, No pain with thoraco-lumbar ROM, No thoracic spinal tenderness and No lumbar spinal tenderness Extrem General: Yes normal to inspection, No edema and No calf tenderness Skin General: warm and dry. Normal skin color. Normal skin turgor Lesions: no lesions Rashes: no rashes Trauma: no lacerations or abrasions Wounds: no wounds Nails: normal Neuro General: patient oriented x3, gait normal and no focal neuro deficit Cranial nerves: Yes Equal, round and reactive pupils present Cognition (Neuro): normal cognition Gait exam (Neuro): Normal gait present Sensory Exam: No Sensory deficit (Neuro) Psych Appearance: grossly normal Affect: normal affect Attitude: cooperative Thought process: Normal thought process present Assessment and Plan Assessment & Plan (1) Depression with anxiety: Code(s): F41.8 - Other specified anxiety disorders Plan: PHQ-9 score revealed mild depression. VICKIE-7 score is negative Continue with current treatment regimen Routine exercise encouraged She will follow-up in 1 month for complete physical exam Return sooner with worsening or new symptoms Verbalized understanding and agreed with treatment plan. (2) Transaminitis: Code(s): R74.01 - Elevation of levels of liver transaminase levels Plan: Her recent AST and ALT levels were elevated, 40 and 53 respectively Repeat AST and ALT ordered. She was advised to get blood work done before this visit. However, she notes she forget to get blood work done Encouraged to get fasting blood work done before next visit Follow-up in 1 month Verbalized understanding and agreed with treatment plan. (3) Vitamin B 12 deficiency: Code(s): E53.8 - Deficiency of other specified B group vitamins Plan: She notes that she was informed by her meat selector to take IM vitamin B12 injections due to history of Crohn's disease. She also has history of vitamin B12 deficiency. Recent CBC is normal. Will check vitamin B12 levels and make changes to her care plan if warranted. Encouraged to perform blood work before next visit. Verbalized understanding and agreed with treatment plan. (4) Elevated blood pressure reading without diagnosis of hypertension: Code(s): R03.0 - Elevated blood-pressure reading, without diagnosis of hypertension Plan: Her resting blood pressure is 144/80, above goal of less than 140/90 She admits to consuming significant amount of sodium Low-sodium diet and routine exercise encouraged Will continue to monitor Verbalized understanding and agreed with treatment plan. She is encouraged to get the RSV vaccine. Orders: Orders Vitamin B12 Today E53.8 - Deficiency of other specified B group vitamins Coding Level of Care Code Est Pt Level 3 (29089) Diagnoses Depression with anxiety F41.8 Transaminitis R74.01 Vitamin B 12 deficiency E53.8 Elevated blood pressure reading without diagnosis of hypertension R03.0 Additional Codes VICKIE-7 Assessment Billing - VICKIE-7 Assessment Tool: VICKIE-7 Assessment [id number] ([id number])
[2023-04-01 10:12] VITALS: BP 144/68; PULSE 98; RESP 13; O2SAT 99; BMI 24.3
[2023-04-01 10:38] VITALS: BP 144/80
== END 2023-04-01 10:56 | disposition home or self-care (01) ==
PROVIDERS: PCP Hospitalist; Visit Provider Nurse Practitioner Family
DX: R03.0 Elevated blood-pressure reading, without diagnosis of hypertension (principal); F41.8 Other specified anxiety disorders; R74.01 Elevation of levels of liver transaminase levels; E53.8 Deficiency of other specified B group vitamins
CPT/HCPCS: 99213

== ENCOUNTER 2023-04-05 08:38 | Outpatient (REF) | payer OTHER, SELFPAY ==
[2023-04-05 11:44] LABS: Alanine Aminotransferase 51 U/L (0-31); Albumin Level 4.1 g/dL (3.5-5.0); Alkaline Phosphatase 67 U/L (39-117); Aspartate Amino Transferase 38 U/L (5-31); Bilirubin Direct 0.2 mg/dL (0.0-0.5); Bilirubin Total 0.4 mg/dL (0.0-1.0)
[2023-04-05 11:59] LABS: Vitamin B12 213 pg/mL (200-900)
== END 2023-04-05 08:39 | disposition home or self-care (01) ==
LOC: HO.WFDLDS 08:38
PROVIDERS: Visit Provider Nurse Practitioner Family
DX: R74.01 Elevation of levels of liver transaminase levels (principal); E53.8 Deficiency of other specified B group vitamins
CPT/HCPCS: 36415; 80076; 82607

== ENCOUNTER 2023-06-11 08:01 | Outpatient (REF) | payer OTHER, SELFPAY | END 2023-06-11 08:02 | disposition home or self-care (01) | LOC: HO.WFDLDS 08:01 | PROVIDERS: Visit Provider Nurse Practitioner Family | DX: Z13.89 Encounter for screening for other disorder (principal) ==

== ENCOUNTER 2023-06-15 10:39 | Outpatient (AMB) | payer OTHER, SELFPAY ==
[2023-06-15 10:47] VITALS: BP 136/70; PULSE 112; RESP 13; TEMP 36.6; O2SAT 99; BMI 24.3
--- NOTE | 2023-06-15 10:47 | MHC.PC.OV ---
Vital Signs 06/15/23 10:47 Height 5 ft 3 in Weight 137 lb 2 oz BMI 24.3 BP 136/70 Blood Pressure Location Rt brachial Position Sitting Respiration 13 Pulse 112 H Pulse Source Pulse Oximeter Temp 97.8 F Temp Source Temporal Artery Scan Pulse Oximetry (%) 99 Oxygen Delivery Method Room Air Intake Visit Reasons: CPE, labs review Intake Note: Patient would like refill on lorazepam. Nursing Program Chair Required: No Accompanied by: Self / Same As Patient Allergies codeine Allergy (Severe, Verified 06/15/23 11:29) Vomiting/nausea omeprazole [From Prilosec] Allergy (Severe, Verified 06/15/23 11:29) rash erythromycin base Allergy (Mild, Verified 06/15/23 11:29) mild lansoprazole [From Prevacid] Allergy (Mild, Verified 06/15/23 11:29) rash Penicillins Allergy (Mild, Verified 06/15/23 11:29) rash Sulfa (Sulfonamide Antibiotics) Allergy (Mild, Verified 06/15/23 11:29) rash Medication List - Last Reconciled 06/15/23 by Khadijah Colon CNP bupropion HCl 150 mg PO QAM buspirone 7.5 mg PO BID 30 days calcium carbonate (Calcium 600) PO .twice clopidogrel 75 mg PO DAILY dicyclomine 10 mg PO TID duloxetine 60 mg PO DAILY famotidine (Pepcid) 40 mg PO BID PRN levothyroxine 75 mcg PO DAILY lorazepam (Ativan) 0.5 mg PO DAILY PRN magnesium citrate (SlowMag Muscle Recovery) mg PO rabeprazole (AcipHex) 20 mg PO BID ropinirole one in the am and noon then 2 at hs orally; Tobacco use date assessed: 06/15/23 Fall risk assessment: 1 Fall in past year Last assessed Fall Risk: 06/15/23 Dental Screening Dental Screen Date: 06/15/23 Did you have a dental visit in the last 12 months?: Yes Did you have a dental problem in the last 6 months where you did not have access to dental care?: No Was dental information given to patient?: Patient has dentist HPI HPI Comments History of Present Illness Details 73-year-old female presents for an extended physical exam She has history of hypothyroidism, Crohn's disease, iron-deficiency anemia, RLS, vitamin B deficiency, anxiety, and depression She admits to taking her medications without adverse reactions She reports controlled anxiety and depression symptoms on current treatment regimen She offers no complaints and denies acute symptoms at this time Last mammogram 10/29/2022: Normal. She gets annual mammogram Last colonoscopy 5 years: normal. Next colonoscopy is due next month She not longer performs pap smear test Last bone scan 3 years at [facility]: Osteoporosis. She was on medication but i don't remember what happened to it Up-to-date on the flu and pneumonia vaccines [facility] Medical History Kidney stones Stroke Crohn disease Depression Surgical History History of cholecystectomy H/O hernia repair History of bowel resection H/O: hysterectomy Family History Other Mental health disorder Social History Housing: Other (mobile home) Alcohol intake: never Patient Tobacco Use Status: Former Tobacco user Quit Date: 1979 Smoked: 10 years e-Cigarette/Vaping Use: Never Used Second Hand Smoke Exposure: No service: No Current occupational status: retired Cognitive needs: No Hearing needs: No Vision needs: No Questionnaire PHQ-9 Over the last 2 weeks, how often have you been bothered by any of the following problems? 1. Little interest or pleasure in doing things: several days 2. Feeling down, depressed, or hopeless: several days 3. Trouble falling or staying asleep, or sleeping too much: more than half the days 4. Feeling tired or having little energy: several days 5. Poor appetite or overeating: not at all 6. Feeling bad about yourself - or that you are a failure or have let yourself or your family down: more than half the days 7. Trouble concentrating on things, such as reading the newspaper or watching television: not at all 8. Moving or speaking so slowly that other people could have noticed. Or the opposite - being so fidgety or restless that you have been moving around a lot more than usual: not at all 9. Thoughts that you would be better off or of hurting yourself in some way: several days Total score: 8 Depression Screening Interpretation: Positive Depression Screening Follow-up: Existing condition and In treatment Depression Screening Done: Yes 46039 - PHQ-9 Billing: Yes Source: Developed by Drs. Iban Mcnamara, Martha Kim, Nick Acosta and colleagues, with an educational rosa maria from [employer]. Thrive Questionnaire Date Thrive assessed: 06/15/23 I am a: Patient What is your living situation today?: I have a steady place to live Within the past 12 months, did the food you bought not last and you didn't have the money to get more?: Never true Within the past 12 months, did you worry whether your food would run out before you got money to buy more?: Never true Do you have trouble paying for medicines?: No Do you have trouble getting transportation to medical appointments?: No Do you have trouble paying your heating and electricity bill?: No Do you have trouble taking care of your child, family member or friend?: No Do you have trouble with day-to-day activities such as bathing, preparing meals, shopping, managing finances, etc.?: No Are you currently unemployed and looking for a job?: No Are you interested in more education?: No Please select the resources that you would like help with: None Currently or been in a relationship where the following occur: no concerns reported THRIVE Score: 0 AUDIT C Alcohol Use Questionnaire (AUDIT-C) 1. How often do you have a drink containing alcohol?: Never 3. How often do you have six or more drinks on one occasion?: Never Total Score: 0 VICKIE-7 AMB Questionnaire VICKIE-7 Date VICKIE - 7 assessed: 06/15/23 Feeling nervous, anxious, or on edge: 2 = More than half the days Not being able to stop or control worryin = More than half the days Worrying too much about different things: 2 = More than half the days Trouble relaxin = Several days Being so restless that it is hard to sit still: 0 = Not at all Becoming easily annoyed or irritable: 1 = Several days Feeling afraid as if something awful might happen: 1 = Several days Total VICKIE-7 score (0-4 normal; 5-9 mild; 10-14 moderate; 15-21 severe): 9 Source: Developed by Drs. Iban Mcnamara, Martha Kim, Nick Acosta and colleagues, with an educational rosa maria from [employer] VICKIE-7 Assessment Billing VICKIE-7 Assessment Tool: VICKIE-7 Assessment 29577 Review of Systems Const Details: Const Denies chills, Denies fatigue, Denies fever(s), Denies headache(s) and Denies weakness ENT Denies dizziness and Denies headache(s) Card Denies chest pain, Denies lightheadedness, Denies dyspnea and Denies other (Palpitations) Resp Denies cough, Denies dyspnea, Denies wheezing and Denies other ( shortness of breath) GI Denies abdominal pain, Denies melena, Denies hematochezia, Denies change in bowel habits, Denies dyspepsia and Denies nausea Denies hematuria and Denies dysuria Musc Denies abnormal gait, Denies myalgias, Denies arthralgias, Denies numbness and Denies tingling Skin/Breast Denies rash, Denies unusual bruising and Denies wounds Neuro Denies abnormal gait, Denies dizziness, Denies headache(s), Denies memory loss, Denies numbness, Denies Sensory deficit (Neuro), Denies tingling and Denies weakness Psych Denies anxiety, Denies depression, Denies memory loss Endo Denies cold intolerance, Denies fatigue, Denies heat intolerance, Denies polydipsia and Denies polyuria Aller/Immun Denies wheezing Physical exam (Primary Care) Vital Signs: Last Vital Signs Temp 97.8 F 06/15/23 10:47 Pulse 112 H 06/15/23 10:47 Resp 13 06/15/23 10:47 BP 136/70 06/15/23 10:47 Pulse Ox 99 06/15/23 10:47 Oxygen Delivery Method Room Air 06/15/23 10:47 BMI result Body Mass Index 24.3 Tobacco/Smoking Status: Tobacco use Status Tobacco use date assessed 06/15/23 06/15/23 10:58 Patient Tobacco Use Status Former Tobacco user 06/15/23 10:58 e-Cigarette/Vaping Use Never Used 06/15/23 10:58 PHQ-9: PHQ-9 Score PHQ-9: Total score 8 06/15/23 10:58 Depression Screening Interpretation: Positive Depression Screening Follow-up: Existing condition and In treatment Thrive Assessment: Date of Thrive Assessment Date Thrive assessed 06/15/23 06/15/23 10:58 Currently or been in a relationship where the following occur: no concerns reported Const Other: General: no acute distress and well developed Nutritional Appearance: well nourished Orientation/consciousness: patient oriented x3 HENMT Head: Yes normocephalic and Yes atraumatic Eyes General: appearance normal, both eyes and all related structures Pupils: Equal, round and reactive pupils present EOM: EOMs intact bilaterally Mouth Several missing teeth Resp Effort & Inspection: normal respiratory effort Auscultation: clear to auscultation bilaterally Cardio Rate: regular rate Rhythm: regular rhythm Heart sounds: S1 normal heart sound present, S2 normal heart sound present, no gallops, no murmurs and no rubs GI Palpation (GI): No Abdominal aortic bruit present, Soft to palpation, nontender, No hepatosplenomegaly present and No Rebound tenderness present Auscultation: normal bowel sounds General: Yes no CVA tenderness Back/Spine/Pelvis Back: no CVA tenderness Cervical Spine: cervical ROM normal and No Cervical spine tenderness Thoracic/Lumbar Spine: thoraco-lumbar ROM normal, No pain with thoraco-lumbar ROM, No thoracic spinal tenderness and No lumbar spinal tenderness Extrem General: Yes normal to inspection, No edema and No calf tenderness Skin General: warm and dry. Normal skin color. Normal skin turgor Lesions: no lesions Rashes: no rashes Trauma: no lacerations or abrasions Wounds: no wounds Nails: normal Neuro General: patient oriented x3, gait normal and no focal neuro deficit Cranial nerves: Yes Equal, round and reactive pupils present Cognition (Neuro): normal cognition Gait exam (Neuro): Normal gait present Sensory Exam: No Sensory deficit (Neuro) Psych Appearance: grossly normal Affect: normal affect Attitude: cooperative Thought process: Normal thought process present Assessment and Plan Assessment & Plan (1) Normal physical exam: Code(s): Z00.00 - Encounter for general adult medical examination without abnormal findings Plan: No significant physical restrictions or limitations noted Continue current treatment regimen Healthy diet and routine exercise encouraged Follow-up in 2 months for anxiety and depression Return sooner with symptoms or concerns Verbalized understanding and agreed with treatment plan (2) Depression with anxiety: Code(s): F41.8 - Other specified anxiety disorders Plan: Reports controlled anxiety and depression symptoms on current treatment regimen PHQ-9 and VICKIE-7 scores revealed mild anxiety and depression respectively Continue current treatment Routine exercise encouraged Follow-up in 2 months or return sooner with worsening or new symptoms Verbalized understanding and agreed with treatment plan (3) Transaminitis: Code(s): R74.01 - Elevation of levels of liver transaminase levels Plan: Repeat AST and ALT level is elevated, 48 and 51 respectively Reports history of hepatic steatosis No acute symptoms Will continue to monitor Follow-up with symptoms or concerns Verbalized understanding and agreed with plan (4) Osteoporosis: Code(s): M81.0 - Age-related osteoporosis without current pathological fracture Plan: Reports history of osteoporosis and was on treatment but does not recall why she has not currently being treated Last bone scan was 5 years ago Bone scan ordered. Patient preferred [facility]. Will review results and make changes as needed Verbalized understanding and agreed with the plan (5) Vitamin B 12 deficiency: Code(s): E53.8 - Deficiency of other specified B group vitamins Plan: Reports history vitamin B12 deficiency and was on monthly vitamin B12 IM Current B12 level is on the low end of normal, 213 Will recheck B12 levels in 2 months and make changes as needed Verbalized understanding and agreed with the plan (6) Teeth missing: Code(s): K08.109 - Complete loss of teeth, unspecified cause, unspecified class Plan: Several missing teeth noted; no overt infection She notes she is planning on getting teeth implants. She does not want dentures Orders: Orders XR DEXA axial skeleton Today M81.0 - Age-related osteoporosis without current pathological fracture Vitamin B12 2 Months E53.8 - Deficiency of other specified B group vitamins Coding Level of Care Code Est Pt Prev Care >65y(11767) Diagnoses Normal physical exam Z00.00 Depression with anxiety F41.8 Transaminitis R74.01 Osteoporosis M81.0 Vitamin B 12 deficiency E53.8 Teeth missing K08.109 Additional Codes VICKIE-7 Assessment Billing - VICKIE-7 Assessment Tool: VICKIE-7 Assessment [id number] ([id number])
== END 2023-06-15 11:40 | disposition home or self-care (01) ==
PROVIDERS: PCP Nurse Practitioner Family; Visit Provider Nurse Practitioner Family
DX: Z00.00 Encounter for general adult medical examination without abnormal findings (principal); F41.8 Other specified anxiety disorders; R74.01 Elevation of levels of liver transaminase levels; M81.0 Age-related osteoporosis without current pathological fracture; E53.8 Deficiency of other specified B group vitamins; K08.109 Complete loss of teeth, unspecified cause, unspecified class
CPT/HCPCS: 96127; 99397

== ENCOUNTER 2023-06-28 13:38 | Outpatient (AMB) | payer OTHER, SELFPAY ==
[2023-06-28 13:47] VITALS: BP 140/74; PULSE 115; RESP 13; TEMP 36.4; O2SAT 99; BMI 24.3
--- NOTE | 2023-06-28 13:47 | A.OFFPC_ITS ---
Vital Signs 06/28/23 13:47 Height 5 ft 3 in Weight 137 lb BMI 24.3 BP 140/74 H Blood Pressure Location Rt brachial Position Sitting Respiration 13 Pulse 115 H Pulse Source Pulse Oximeter Temp 97.6 F Temp Source Temporal Artery Scan Pulse Oximetry (%) 99 Oxygen Delivery Method Room Air Intake Visit Reasons: cough,cold Product Marketer Required: No Accompanied by: Self / Same As Patient Allergies codeine Allergy (Severe, Verified 06/28/23 13:51) Vomiting/nausea omeprazole [From Prilosec] Allergy (Severe, Verified 06/28/23 13:51) rash erythromycin base Allergy (Mild, Verified 06/28/23 13:51) mild lansoprazole [From Prevacid] Allergy (Mild, Verified 06/28/23 13:51) rash Penicillins Allergy (Mild, Verified 06/28/23 13:51) rash Sulfa (Sulfonamide Antibiotics) Allergy (Mild, Verified 06/28/23 13:51) rash Tobacco use date assessed: 06/15/23 Fall risk assessment: 1 Fall in past year Last assessed Fall Risk: 06/28/23 Dental Screening Dental Screen Date: 06/28/23 Did you have a dental visit in the last 12 months?: Yes Did you have a dental problem in the last 6 months where you did not have access to dental care?: No Was dental information given to patient?: Patient has dentist HPI HPI Comments History of Present Illness Details 73-year-old female presents with complai nts of intermittent nonproductive cough since last Wednesday. She notes headache, body aches, sinus congestion, generalized body aches, chills, and sore throat which started last Wednesday and completely resolved yesterday. No fever. No sneezing. She reports positive sick contact. She has not tested for COVD or flu. She has been drinking lots of water and taking Tylenol as needed. No acute symptoms at this time [facility] Medical History Kidney stones Stroke Crohn disease Depression Surgical History History of cholecystectomy H/O hernia repair History of bowel resection H/O: hysterectomy Family History Other Mental health disorder Social History Housing: Other (mobile home) Alcohol intake: never Patient Tobacco Use Status: Former Tobacco user Quit Date: 1979 Years Smoked: 10 years e-Cigarette/Vaping Use: Never Used Second Hand Smoke Exposure: No service: No Current occupational status: retired Cognitive needs: No Hearing needs: No Vision needs: No Questionnaire Thrive Questionnaire Date Thrive assessed: 06/15/23 VICKIE-7 AMB Questionnaire VICKIE-7 Date VICKIE - 7 assessed: 06/15/23 Source: Developed by Drs. Iban Mcnamara, Martha Kim, Nick Acosta and colleagues, with an educational rosa maria from [employer]. Review of Systems Const Details: Const Denies chills, Denies fatigue, Denies fever(s), Denies headache(s) and Denies weakness ENT Denies dizziness and Denies headache(s) Card Denies chest pain, Denies lightheadedness, Denies dyspnea and Denies other (Palpitations) Resp Report cough, Denies dyspnea, Denies wheezing and Denies other ( shortness of breath) GI Denies abdominal pain, Denies melena, Denies hematochezia, Denies change in bowel habits, Denies dyspepsia and Denies nausea Denies hematuria and Denies dysuria Musc Denies abnormal gait, Denies myalgias, Denies arthralgias, Denies numbness and Denies tingling Skin/Breast Denies rash, Denies unusual bruising and Denies wounds Neuro Denies abnormal gait, Denies dizziness, Denies headache(s), Denies memory loss, Denies numbness, Denies Sensory deficit (Neuro), Denies tingling and Denies weakness Psych Denies anxiety, Denies depression, Denies memory loss Endo Denies cold intolerance, Denies fatigue, Denies heat intolerance, Denies polydipsia and Denies polyuria Aller/Immun Denies wheezing Physical exam (Primary Care) Tobacco/Smoking Status: Tobacco use Status Tobacco use date assessed 06/15/23 06/15/23 10:58 Patient Tobacco Use Status Former Tobacco user 06/15/23 10:58 e-Cigarette/Vaping Use Never Used 06/15/23 10:58 Thrive Assessment: Date of Thrive Assessment Date Thrive assessed 06/15/23 06/15/23 10:58 Const Other: General: no acute distress and well developed Nutritional Appearance: well nourished Orientation/consciousness: patient oriented x3 [facility] Head is normocephalic Bilateral ear canal and TM are normal Nasal turbinates and oropharynx are pink and moist Sinuses are nontender with palpation No auricular or cervical lymphadenopathy Eyes General: appearance normal, both eyes and all related structures Pupils: Equal, round and reactive pupils present EOM: EOMs intact bilaterally Resp Effort & Inspection: normal respiratory effort Auscultation: clear to auscultation bilaterally Cardio Rate: regular rate Rhythm: regular rhythm Heart sounds: S1 normal heart sound present, S2 normal heart sound present, no gallops, no murmurs and no rubs GI Palpation (GI): No Abdominal aortic bruit present, Soft to palpation, nontender, No hepatosplenomegaly present and No Rebound tenderness present Auscultation: normal bowel sounds General: Yes no CVA tenderness Back/Spine/Pelvis Back: no CVA tenderness Cervical Spine: cervical ROM normal and No Cervical spine tenderness Thoracic/Lumbar Spine: thoraco-lumbar ROM normal, No pain with thoraco-lumbar ROM, No thoracic spinal tenderness and No lumbar spinal tenderness Extrem General: Yes normal to inspection, No edema and No calf tenderness Skin General: warm and dry. Normal skin color. Normal skin turgor Neuro General: patient oriented x3, gait normal and no focal neuro deficit Cranial nerves: Yes Equal, round and reactive pupils present Cognition (Neuro): normal cognition Gait exam (Neuro): Normal gait present Sensory Exam: No Sensory deficit (Neuro) Psych Appearance: grossly normal Affect: normal affect Attitude: cooperative Thought process: Normal thought process present Assessment and Plan Assessment & Plan (1) Cough: Code(s): R05.9 - Cough, unspecified Plan: Likely viral illness though possibly allergies. No exam evidence of bacterial infection Viral illness There is no antibiotic medication for viruses.? They must run their course.? Most average 5-7 days but 7-10 days is not uncommon and up to 14 days is still possible.? A cough is often the last symptom to resolve and this can last for weeks in some cases. Rest Hydrate well -? Drink plenty of fluids.? Especially water. Tylenol or ibuprofen for muscle aches, headache, fever/discomfort Declines cough suppressant Cannot rule out COVID-19/RSV/Flu infection Nasal swab acquired and will be sent to the lab Return for new or worsening symptoms Verbalized understanding and agreed with treatment plan. Orders: Orders SARS-CoV2/FLU/RSV Today J06.9 - Acute upper respiratory infection, unspecified Coding Level of Care Code Est Pt Level 3 (46898) Diagnoses Cough R05.9
== END 2023-06-28 14:22 | disposition home or self-care (01) ==
PROVIDERS: PCP Nurse Practitioner Family; Visit Provider Nurse Practitioner Family
DX: R05.9 Cough, unspecified (principal)
CPT/HCPCS: 99213

== ENCOUNTER 2023-06-28 14:08 | Outpatient (REF) | payer OTHER, SELFPAY ==
[2023-06-29 12:37] LABS: Influenza A PCR NEGATIVE (Negative); Influenza B PCR NEGATIVE (Negative); Resp Syncy Virus RNA Qual PCR NEGATIVE (Negative); SARS COV2 PCR INHOUSE POSITIVE (Negative)
== END 2023-06-28 14:09 | disposition home or self-care (01) ==
LOC: HO.LAB 14:08
PROVIDERS: Visit Provider Nurse Practitioner Family
DX: J06.9 Acute upper respiratory infection, unspecified (principal); Z11.52 Encounter for screening for COVID-19; Z20.828 Contact with and (suspected) exposure to other viral communicable diseases
CPT/HCPCS: 0241U

== ENCOUNTER 2023-08-13 10:37 | Outpatient (REF) | payer OTHER, SELFPAY ==
[2023-08-13 15:55] LABS: Vitamin B12 206 pg/mL (200-900)
== END 2023-08-13 10:38 | disposition home or self-care (01) ==
LOC: HO.WFDLDS 10:37
PROVIDERS: Visit Provider Nurse Practitioner Family
DX: E53.8 Deficiency of other specified B group vitamins (principal)
CPT/HCPCS: 36415; 82607

== ENCOUNTER 2023-08-17 12:58 | Outpatient (AMB) | payer OTHER, SELFPAY ==
[2023-08-17 13:02] VITALS: BP 134/70; PULSE 94; RESP 13; TEMP 36.1; O2SAT 98; BMI 24.3
--- NOTE | 2023-08-17 13:02 | MHC.PC.OV ---
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 Accompanied by: Self / Same As Patient Allergies codeine Allergy (Severe, Verified 08/17/23 13:19) Vomiting/nausea omeprazole [From Prilosec] Allergy (Severe, Verified 08/17/23 13:19) rash erythromycin base Allergy (Mild, Verified 08/17/23 13:19) mild lansoprazole [From Prevacid] Allergy (Mild, Verified 08/17/23 13:19) rash Penicillins Allergy (Mild, Verified 08/17/23 13:19) rash Sulfa (Sulfonamide Antibiotics) Allergy (Mild, Verified 08/17/23 13:19) rash Medication List - Last Reconciled 08/17/23 by Khadijah Colon CNP bupropion HCl 150 mg PO QAM buspirone 7.5 mg PO BID 30 days calcium carbonate (Calcium 600) PO .twice clopidogrel 75 mg PO DAILY dicyclomine 10 mg PO TID duloxetine 60 mg PO DAILY famotidine (Pepcid) 40 mg PO BID PRN levothyroxine 75 mcg PO DAILY lorazepam (Ativan) 0.5 mg PO DAILY PRN magnesium citrate (SlowMag Muscle Recovery) mg PO rabeprazole (AcipHex) 20 mg PO BID ropinirole one in the am and noon then 2 at hs orally; Tobacco use date assessed: 06/15/23 Fall risk assessment: No Falls in past year Last assessed Fall Risk: 08/17/23 Dental Screening Dental Screen Date: 08/17/23 Did you have a dental visit in the last 12 months?: Yes Did you have a dental problem in the last 6 months where you did not have access to dental care?: No Was dental information given to patient?: Patient has dentist HPI HPI Comments History of Present Illness Details 73-year-old female presents for anxiety and depression follow-up She admits to taking her medications as prescribed without adverse reactions She notes that her depression and anxiety symptoms are slowly improving. She feels better now the her son who is 54 years old he is doing better for himself She reports sleep disturbances for the past several years. She sleeps an average of 4 hours every night She denies SI/HI/AVH She notes that she is unable to connect to a therapist because her health plan is not allowed [facility] Medical History Kidney stones Stroke Crohn disease Depression Surgical History History of cholecystectomy H/O hernia repair History of bowel resection H/O: hysterectomy Family History Other Mental health disorder Social History Housing: Other (mobile home) Alcohol intake: never Patient Tobacco Use Status: Former Tobacco user Quit Date: 1979 Years Smoked: 10 years e-Cigarette/Vaping Use: Never Used Second Hand Smoke Exposure: No service: No Current occupational status: retired Cognitive needs: No Hearing needs: No Vision needs: No Questionnaire PHQ-9 Over the last 2 weeks, how often have you been bothered by any of the following problems? 1. Little interest or pleasure in doing things: several days 2. Feeling down, depressed, or hopeless: more than half the days 3. Trouble falling or staying asleep, or sleeping too much: nearly every day 4. Feeling tired or having little energy: several days 5. Poor appetite or overeating: nearly every day 6. Feeling bad about yourself - or that you are a failure or have let yourself or your family down: nearly every day 7. Trouble concentrating on things, such as reading the newspaper or watching television: several days 8. Moving or speaking so slowly that other people could have noticed. Or the opposite - being so fidgety or restless that you have been moving around a lot more than usual: several days 9. Thoughts that you would be better off or of hurting yourself in some way: more than half the days Total score: 17 Depression Screening Interpretation: Positive Depression Screening Done: Yes 31692 - PHQ-9 Billing: Yes Source: Developed by Drs. Iban Mcnamara, Martha B.W. Nick Kim and colleagues, with an educational rosa maria from [employer]. Thrive Questionnaire Date Thrive assessed: 06/15/23 VICKIE-7 AMB Questionnaire VICKIE-7 Date VICKIE - 7 assessed: 08/17/23 Feeling nervous, anxious, or on edge: 3 = Nearly every day Not being able to stop or control worryin = More than half the days Worrying too much about different things: 2 = More than half the days Trouble relaxin = More than half the days Being so restless that it is hard to sit still: 1 = Several days Becoming easily annoyed or irritable: 2 = More than half the days Feeling afraid as if something awful might happen: 2 = More than half the days Total VICKIE-7 score (0-4 normal; 5-9 mild; 10-14 moderate; 15-21 severe): 14 Source: Developed by Drs. Iban Mcnamara, Nick Sotelo and colleagues, with an educational rosa maria from [employer]. VICKIE-7 Assessment Billing VICKIE-7 Assessment Tool: VICKIE-7 Assessment 62130 Review of Systems Const Details: Const Denies chills, Denies fatigue, Denies fever(s), Denies headache(s) and Denies weakness ENT Denies dizziness and Denies headache(s) Card Denies chest pain, Denies lightheadedness, Denies dyspnea and Denies other (Palpitations) Resp Denies cough, Denies dyspnea, Denies wheezing and Denies other ( shortness of breath) GI Denies abdominal pain, Denies melena, Denies hematochezia, Denies change in bowel habits, Denies dyspepsia and Denies nausea Denies hematuria and Denies dysuria Musc Denies abnormal gait, Denies myalgias, Denies arthralgias, Denies numbness and Denies tingling Skin/Breast Denies rash, Denies unusual bruising and Denies wounds Neuro Denies abnormal gait, Denies dizziness, Denies headache(s), Denies memory loss, Denies numbness, Denies Sensory deficit (Neuro), Denies tingling and Denies weakness Psych Reports anxiety, Reports depression, Denies memory loss Endo Denies cold intolerance, Denies fatigue, Denies heat intolerance, Denies polydipsia and Denies polyuria Aller/Immun Denies wheezing Physical exam (Primary Care) Vital Signs: Last Vital Signs Temp 97 F 08/17/23 13:02 Pulse 94 08/17/23 13:02 Resp 13 08/17/23 13:02 BP 134/70 08/17/23 13:02 Pulse Ox 98 08/17/23 13:02 Oxygen Delivery Method Room Air 08/17/23 13:02 BMI result Body Mass Index 24.3 Tobacco/Smoking Status: Tobacco use Status Tobacco use date assessed 06/15/23 08/17/23 13:12 Patient Tobacco Use Status Former Tobacco user 08/17/23 13:12 e-Cigarette/Vaping Use Never Used 08/17/23 13:12 PHQ-9: PHQ-9 Score PHQ-9: Total score 17 08/17/23 13:12 Depression Screening Interpretation: Positive Thrive Assessment: Date of Thrive Assessment Date Thrive assessed 06/15/23 08/17/23 13:12 Const Other: General: no acute distress and well developed Nutritional Appearance: well nourished Orientation/consciousness: patient oriented x3 HENMT Head: Yes normocephalic and Yes atraumatic Eyes General: appearance normal, both eyes and all related structures Pupils: Equal, round and reactive pupils present EOM: EOMs intact bilaterally Resp Effort & Inspection: normal respiratory effort Auscultation: clear to auscultation bilaterally Cardio Rate: regular rate Rhythm: regular rhythm Heart sounds: S1 normal heart sound present, S2 normal heart sound present, no gallops, no murmurs and no rubs GI Palpation (GI): No Abdominal aortic bruit present, Soft to palpation, nontender, No hepatosplenomegaly present and No Rebound tenderness present Auscultation: normal bowel sounds General: Yes no CVA tenderness Back/Spine/Pelvis Back: no CVA tenderness Cervical Spine: cervical ROM normal and No Cervical spine tenderness Thoracic/Lumbar Spine: thoraco-lumbar ROM normal, No pain with thoraco-lumbar ROM, No thoracic spinal tenderness and No lumbar spinal tenderness Extrem General: Yes normal to inspection, No edema and No calf tenderness Skin General: warm and dry. Normal skin color. Normal skin turgor Neuro General: patient oriented x3, gait normal and no focal neuro deficit Cranial nerves: Yes Equal, round and reactive pupils present Cognition (Neuro): normal cognition Gait exam (Neuro): Normal gait present Sensory Exam: No Sensory deficit (Neuro) Psych Appearance: grossly normal Affect: normal affect Attitude: cooperative Thought process: Normal thought process present Assessment and Plan Assessment & Plan (1) Depression with anxiety: Code(s): F41.8 - Other specified anxiety disorders Plan: Anxiety and depression symptoms are improving PHQ-9 and VICKIE-7 scores revealed moderately severe depression and moderate anxiety respectively Will increase buspirone to 10 mg twice daily. Take as prescribed Continue to take Wellbutrin as ordered Trazodone ordered for insomnia and may also improve anxiety and depression Routine exercise encouraged She met with the CHW who would try to connect to a therapist. According to CHW, have not called back or return messages to establish with a therapist Follow-up in 3-4 weeks or return sooner with worsening or new symptoms Verbalized understanding and agreed with the treatment plan (2) Insomnia: Code(s): G47.00 - Insomnia, unspecified Plan: Sleep disturbances for several years. Sleeps an average of 4 hours nightly Will start trazodone. Take as prescribed Instructed on sleep hygiene Follow-up in 3-4 weeks or return sooner with worsening or new symptoms Verbalized understanding and agreed with treatment plan (3) Vitamin B 12 deficiency: Code(s): E53.8 - Deficiency of other specified B group vitamins Plan: Recent vitamin B12 level is on the low end of normal, 206 Vitamin B12 a 1000 mcg every month ordered Patient would schedule an appointment with the nurse and bring the medication for monthly administration Follow-up with symptoms or concerns Verbalized understanding and agreed with the treatment plan Medications: New trazodone 25 mg (1/2 x 50 mg) PO BEDTIME PRN 30 tabs 3RF sleep 30 days mecobalamin (vitamin B12) 1000 mcg IM every month 1 ea 4RF 30 days buspirone 10 mg PO BID 60 tabs 3RF 30 days Discontinued buspirone Discontinued Reason: Doctor's Order 7.5 mg PO BID 60 tabs 2RF 30 days Coding Level of Care Code Est Pt Level 3 (58146) Diagnoses Depression with anxiety F41.8 Insomnia G47.00 Vitamin B 12 deficiency E53.8 Additional Codes VICKIE-7 Assessment Billing - VICKIE-7 Assessment Tool: VICKIE-7 Assessment 70476 ([id number])
== END 2023-08-17 13:52 | disposition home or self-care (01) ==
PROVIDERS: PCP Nurse Practitioner Family; Visit Provider Nurse Practitioner Family
DX: G47.00 Insomnia, unspecified (principal); F41.8 Other specified anxiety disorders; E53.8 Deficiency of other specified B group vitamins
CPT/HCPCS: 96127; 99213

== ENCOUNTER 2023-09-20 08:49 | Outpatient (AMB) | payer OTHER, SELFPAY ==
--- NOTE | 2023-09-20 08:51 | A.OFFPC_ITS ---
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 by: Self / Same As Patient Allergies codeine Allergy (Severe, Verified 09/20/23 09:05) Vomiting/nausea omeprazole [From Prilosec] Allergy (Severe, Verified 09/20/23 09:05) rash erythromycin base Allergy (Mild, Verified 09/20/23 09:05) mild lansoprazole [From Prevacid] Allergy (Mild, Verified 09/20/23 09:05) rash Penicillins Allergy (Mild, Verified 09/20/23 09:05) rash Sulfa (Sulfonamide Antibiotics) Allergy (Mild, Verified 09/20/23 09:05) rash Medication List - Last Reconciled 09/20/23 by Khadijah Colon CNP bupropion HCl XL 150 mg PO QAM buspirone 10 mg PO BID 30 days calcium carbonate (Calcium 600) PO .twice clopidogrel 75 mg PO DAILY dicyclomine 10 mg PO TID duloxetine 60 mg PO DAILY famotidine (Pepcid) 40 mg PO BID PRN levothyroxine 75 mcg PO DAILY lorazepam (Ativan) 0.5 mg PO DAILY PRN magnesium citrate (SlowMag Muscle Recovery) mg PO mecobalamin (vitamin B12) 1000 mcg IM every month 30 days rabeprazole (AcipHex) 20 mg PO BID ropinirole one in the am and noon then 2 at hs orally; trazodone 25 mg (1/2 x 50 mg) PO BEDTIME PRN 30 days Tobacco use date assessed: 06/15/23 Fall risk assessment: No Falls in past year Last assessed Fall Risk: 09/20/23 Dental Screening Dental Screen Date: 09/20/23 Did you have a dental visit in the last 12 months?: Yes Did you have a dental problem in the last 6 months where you did not have access to dental care?: No Was dental information given to patient?: Patient has dentist HPI HPI Comments History of Present Illness Details 73-year-old female presents for anxiety, depression, and insomnia follow-up. She was last evaluated in the office about a month ago. Buspirone was increased to 10 mg twice daily. She was started on trazodone 25 mg every night for insomnia. She was advised to continue to take bupropion 150 mg daily and duloxetine 60 mg daily. She admits to taking her medications as prescribed without adverse reactions. She reports controlled anxiety and depression symptoms. She notes that her sleep is improved, she sleeps an average of 6 hours and does not have trouble falling asleep. She states that she has not received a call to connect to a therapist. She offers no complaints and denies acute symptoms at this time Denies SI/HI [facility] Medical History Kidney stones Stroke Crohn disease Depression Surgical History History of cholecystectomy H/O hernia repair History of bowel resection H/O: hysterectomy Family History Other Mental health disorder Social History (Updated 09/20/23 @ 08:59 by KAT Child) Household Members: Children Housing: Other (mobile home) Alcohol intake: never Patient Tobacco Use Status: Former Tobacco user Quit Date: 1979 Smoked: 10 years e-Cigarette/Vaping Use: Never Used Second Hand Smoke Exposure: No service: No Current occupational status: retired Cognitive needs: No Hearing needs: No Vision needs: No Questionnaire PHQ-9 Over the last 2 weeks, how often have you been bothered by any of the following problems? 1. Little interest or pleasure in doing things: not at all 2. Feeling down, depressed, or hopeless: several days 3. Trouble falling or staying asleep, or sleeping too much: several days 4. Feeling tired or having little energy: not at all 5. Poor appetite or overeating: not at all 6. Feeling bad about yourself - or that you are a failure or have let yourself or your family down: several days 7. Trouble concentrating on things, such as reading the newspaper or watching te levision: not at all 8. Moving or speaking so slowly that other people could have noticed. Or the opposite - being so fidgety or restless that you have been moving around a lot more than usual: not at all 9. Thoughts that you would be better off or of hurting yourself in some way: not at all Total score: 3 Depression Screening Interpretation: Negative Depression Screening Done: Yes 20455 - PHQ-9 Billing: Yes Source: Developed by Drs. Iban Mcnamara, Nick Sotelo and colleagues, with an educational rosa maria from [employer]. Thrive Questionnaire Date Thrive assessed: 06/15/23 VICKIE-7 AMB Questionnaire VICKIE-7 Date VICKIE - 7 assessed: 09/20/23 Feeling nervous, anxious, or on edge: 1 = Several days Not being able to stop or control worryin = Several days Worrying too much about different things: 1 = Several days Trouble relaxin = Not at all Being so restless that it is hard to sit still: 0 = Not at all Becoming easily annoyed or irritable: 1 = Several days Feeling afraid as if something awful might happen: 0 = Not at all Total VICKIE-7 score (0-4 normal; 5-9 mild; 10-14 moderate; 15-21 severe): 4 Source: Developed by Drs. Iban Mcnamara, Martha Kim, Nick Acosta and colleagues, with an educational rosa maria from [employer]. VICKIE-7 Assessment Billing VICKIE-7 Assessment Tool: VICKIE-7 Assessment 94722 Review of Systems Const Details: Const Denies chills, Denies fatigue, Denies fever(s), Denies headache(s) and Denies weakness ENT Denies dizziness and Denies headache(s) Card Denies chest pain, Denies lightheadedness, Denies dyspnea and Denies other (Palpitations) Resp Denies cough, Denies dyspnea, Denies wheezing and Denies other ( shortness of breath) GI Denies abdominal pain, Denies melena, Denies hematochezia, Denies change in bowel habits, Denies dyspepsia and Denies nausea Denies hematuria and Denies dysuria Musc Denies abnormal gait, Denies myalgias, Denies arthralgias, Denies numbness and Denies tingling Skin/Breast Denies rash, Denies unusual bruising and Denies wounds Neuro Denies abnormal gait, Denies dizziness, Denies headache(s), Denies memory loss, Denies numbness, Denies Sensory deficit (Neuro), Denies tingling and Denies weakness Psych Denies anxiety, Denies depression, Denies memory loss Endo Denies cold intolerance, Denies fatigue, Denies heat intolerance, Denies polydipsia and Denies polyuria Aller/Immun Denies wheezing Physical exam (Primary Care) Vital Signs: Last Vital Signs Temp 97.8 F 09/20/23 08:52 Pulse 113 H 09/20/23 08:52 Resp 14 09/20/23 08:52 BP 144/84 H 09/20/23 08:52 Pulse Ox 99 09/20/23 08:52 Oxygen Delivery Method Room Air 09/20/23 08:52 BMI result Body Mass Index 24.3 Tobacco/Smoking Status: Tobacco use Status Tobacco use date assessed 06/15/23 09/20/23 09:01 Patient Tobacco Use Status Former Tobacco user 09/20/23 09:01 e-Cigarette/Vaping Use Never Used 09/20/23 09:01 PHQ-9: PHQ-9 Score PHQ-9: Total score 3 09/20/23 09:07 Depression Screening Interpretation: Negative Thrive Assessment: Date of Thrive Assessment Date Thrive assessed 06/15/23 09/20/23 09:01 Const Other: General: no acute distress and well developed Nutritional Appearance: well nourished Orientation/consciousness: patient oriented x3 HENMT Head: Yes normocephalic and Yes atraumatic Eyes General: appearance normal, both eyes and all related structures Pupils: Equal, round and reactive pupils present EOM: EOMs intact bilaterally Resp Effort & Inspection: normal respiratory effort Auscultation: clear to auscultation bilaterally Cardio Rate: regular rate Rhythm: regular rhythm Heart sounds: S1 normal heart sound present, S2 normal heart sound present, no gallops, no murmurs and no rubs GI Palpation (GI): No Abdominal aortic bruit present, Soft to palpation, nontender, No hepatosplenomegaly present and No Rebound tenderness present Auscultation: normal bowel sounds General: Yes no CVA tenderness Back/Spine/Pelvis Back: no CVA tenderness Cervical Spine: cervical ROM normal and No Cervical spine tenderness Thoracic/Lumbar Spine: thoraco-lumbar ROM normal, No pain with thoraco-lumbar ROM, No thoracic spinal tenderness and No lumbar spinal tenderness Extrem General: Yes normal to inspection, No edema and No calf tenderness Skin General: warm and dry. Normal skin color. Normal skin turgor Neuro General: patient oriented x3, gait normal and no focal neuro deficit Cranial nerves: Yes Equal, round and reactive pupils present Cognition (Neuro): normal cognition Gait exam (Neuro): Normal gait present Sensory Exam: No Sensory deficit (Neuro) Psych Appearance: grossly normal Affect: normal affect Attitude: cooperative Thought process: Normal thought process present Assessment and Plan Assessment & Plan (1) Depression with anxiety: Code(s): F41.8 - Other specified anxiety disorders Plan: Reports controlled anxiety and depression symptoms improved sleep PHQ-9 and VICKIE-7 scores are normal Continue current treatment regimen Routine exercise encouraged She met with the CHW who would facilitate connecting her to a therapist Follow-up in 1 month or return sooner with symptoms or concerns Verbalized understanding and agreed with treatment plan (2) Insomnia: Code(s): G47.00 - Insomnia, unspecified Plan: As above Coding Level of Care Code Est Pt Level 4 (63009) Complex EM visit Add On G2211 Diagnoses Depression with anxiety F41.8 Insomnia G47.00 Additional Codes VICKIE-7 Assessment Billing - VICKIE-7 Assessment Tool: VICKIE-7 Assessment 27505 ([id number])
[2023-09-20 08:52] VITALS: BP 144/84; PULSE 113; RESP 14; TEMP 36.6; O2SAT 99; BMI 24.3
[2023-09-20 09:22] VITALS: BP 130/80
== END 2023-09-20 09:34 | disposition home or self-care (01) ==
PROVIDERS: PCP Nurse Practitioner Family; Visit Provider Nurse Practitioner Family
DX: F41.8 Other specified anxiety disorders (principal); G47.00 Insomnia, unspecified
CPT/HCPCS: 99213; G2211

== ENCOUNTER 2023-10-22 11:47 | Outpatient (AMB) | payer OTHER, SELFPAY ==
--- NOTE | 2023-10-22 12:02 | MHC.PC.OV ---
Vital Signs 10/22/23 12:03 Height 5 ft 3 in Weight 134 lb BMI 23.7 BP 126/68 Blood Pressure Location Rt brachial Position Sitting Respiration 13 Pulse 93 Pulse Source Pulse Oximeter Temp 97.8 F Temp Source Temporal Artery Scan Pulse Oximetry (%) 99 Oxygen Delivery Method Room Air Intake Visit Reasons: 1 mos anxiety, depression, insomnia Security Dispatcher Required: No Accompanied by: Self / Same As Patient Allergies codeine Allergy (Severe, Verified 10/22/23 13:18) Vomiting/nausea omeprazole [From Prilosec] Allergy (Severe, Verified 10/22/23 13:18) rash erythromycin base Allergy (Mild, Verified 10/22/23 13:18) mild lansoprazole [From Prevacid] Allergy (Mild, Verified 10/22/23 13:18) rash Penicillins Allergy (Mild, Verified 10/22/23 13:18) rash Sulfa (Sulfonamide Antibiotics) Allergy (Mild, Verified 10/22/23 13:18) rash Medication List - Last Reconciled 10/22/23 by Khadijah Colon CNP bupropion HCl XL 150 mg PO QAM buspirone 10 mg PO BID 30 days calcium carbonate (Calcium 600) PO .twice clopidogrel 75 mg PO DAILY cyanocobalamin (vitamin B-12) 1,000 mcg IM Q4W 4 weeks dicyclomine 10 mg PO TID duloxetine 60 mg PO DAILY famotidine (Pepcid) 40 mg PO BID PRN levothyroxine 75 mcg PO DAILY lorazepam (Ativan) 0.5 mg PO DAILY PRN magnesium citrate (SlowMag Muscle Recovery) mg PO rabeprazole (AcipHex) 20 mg PO BID ropinirole one in the am and noon then 2 at hs orally; trazodone 25 mg (1/2 x 50 mg) PO BEDTIME PRN 30 days Tobacco use date assessed: 06/15/23 Fall risk assessment: No Falls in past year Last assessed Fall Risk: 10/22/23 Dental Screening Dental Screen Date: 09/20/23 HPI HPI Comments History of Present Illness Details 73-year-old female presents for anxiety, depression, and insomnia follow-up She admits to taking her medications as prescribed without adverse reactions She reports controlled anxiety and depression symptoms. She notes that her sleep is improved, she sleeps an average of 6 hours and does not have trouble falling asleep; her cat wakes her up at times She has been making healthy dietary choices but has not been exercising She states that she has not received a call to connect to a therapist. She notes that she does not answer a call if she does not have the contact saved on the phone. She states they would have to leave a voice message She offers no complaints and denies acute symptoms at this time Denies SI/HI She brought a dose of vitamin B12 1000 mcg for the nurse to administer IM. She also wants to be taught self administration of her B12 injections [facility] Medical History Kidney stones Stroke Crohn disease Depression Surgical History History of cholecystectomy H/O hernia repair History of bowel resection H/O: hysterectomy Family History Other Mental health disorder Social History Household Members: Children Housing: Other (mobile home) Alcohol intake: never Patient Tobacco Use Status: Former Tobacco user Years Smoked: 10 years e-Cigarette/Vaping Use: Never Used Second Hand Smoke Exposure: No service: No Current occupational status: retired Cognitive needs: No Hearing needs: No Vision needs: No Questionnaire PHQ-9 Over the last 2 weeks, how often have you been bothered by any of the following problems? 1. Little interest or pleasure in doing things: not at all 2. Feeling down, depressed, or hopeless: several days 3. Trouble falling or staying asleep, or sleeping too much: several days 4. Feeling tired or having little energy: several days 5. Poor appetite or overeating: several days 6. Feeling bad about yourself - or that you are a failure or have let yourself or your family down: several days 7. Trouble concentrating on things, such as reading the newspaper or watching television: several days 8. Moving or speaking so slowly that other people could have noticed. Or the opposite - being so fidgety or restless that you have been moving around a lot more than usual: not at all 9. Thoughts that you would be better off or of hurting yourself in some way: several days Total score: 7 Depression Screening Interpretation: Positive Depression Screening Follow-up: Existing condition, In treatment and Community Mental Health Worker F/U Depression Screening Done: Yes 90665 - PHQ-9 Billing: Yes Source: Developed by Drs. Iban Mcnamara, Martha Kim, Nick Acosta and colleagues, with an educational rosa maria from [employer]. Thrive Questionnaire Date Thrive assessed: 06/15/23 VICKIE-7 AMB Questionnaire VICKIE-7 Date VICKIE - 7 assessed: 10/22/23 Feeling nervous, anxious, or on edge: 1 = Several days Not being able to stop or control worryin = Not at all Worrying too much about different things: 0 = Not at all Trouble relaxin = Not at all Being so restless that it is hard to sit still: 0 = Not at all Becoming easily annoyed or irritable: 1 = Several days Feeling afraid as if something awful might happen: 0 = Not at all Total VICKIE-7 score (0-4 normal; 5-9 mild; 10-14 moderate; 15-21 severe): 2 Source: Developed by Drs. Iban Mcnamara, Martha Kim, Nick Acosta and colleagues, with an educational rosa maria from [employer]. VICKIE-7 Assessment Billing VICKIE-7 Assessment Tool: VICKIE-7 Assessment 02560 Review of Systems Const Details: Const Denies chills, Denies fatigue, Denies fever(s), Denies headache(s) and Denies weakness ENT Denies dizziness and Denies headache(s) Card Denies chest pain, Denies lightheadedness, Denies dyspnea and Denies other (Palpitations) Resp Denies cough, Denies dyspnea, Denies wheezing and Denies other ( shortness of breath) GI Denies abdominal pain, Denies melena, Denies hematochezia, Denies change in bowel habits, Denies dyspepsia and Denies nausea Denies hematuria and Denies dysuria Musc Denies abnormal gait, Denies myalgias, Denies arthralgias, Denies numbness and Denies tingling Skin/Breast Denies rash, Denies unusual bruising and Denies wounds Neuro Denies abnormal gait, Denies dizziness, Denies headache(s), Denies memory loss, Denies numbness, Denies Sensory deficit (Neuro), Denies tingling and Denies weakness Psych Denies anxiety, Denies depression, Denies memory loss Endo Denies cold intolerance, Denies fatigue, Denies heat intolerance, Denies polydipsia and Denies polyuria Aller/Immun Denies wheezing Physical exam (Primary Care) Vital Signs: Last Vital Signs Temp 97.8 F 10/22/23 12:03 Pulse 93 10/22/23 12:03 Resp 13 10/22/23 12:03 BP 126/68 10/22/23 12:03 Pulse Ox 99 10/22/23 12:03 Oxygen Delivery Method Room Air 10/22/23 12:03 BMI result Body Mass Index 23.7 Tobacco/Smoking Status: Tobacco use Status Tobacco use date assessed 06/15/23 10/22/23 12:11 Patient Tobacco Use Status Former Tobacco user 10/22/23 12:11 e-Cigarette/Vaping Use Never Used 10/22/23 12:11 PHQ-9: PHQ-9 Score PHQ-9: Total score 7 10/25/23 00:31 Depression Screening Interpretation: Positive Depression Screening Follow-up: Existing condition, In treatment and Community Mental Health Worker F/U Thrive Assessment: Date of Thrive Assessment Date Thrive assessed 06/15/23 10/22/23 12:11 Const Other: General: no acute distress and well developed Nutritional Appearance: well nourished Orientation/consciousness: patient oriented x3 HENMT Head: Yes normocephalic and Yes atraumatic Eyes General: appearance normal, both eyes and all related structures Pupils: Equal, round and reactive pupils present EOM: EOMs intact bilaterally Resp Effort & Inspection: normal respiratory effort Auscultation: clear to auscultation bilaterally Cardio Rate: regular rate Rhythm: regular rhythm Heart sounds: S1 normal heart sound present, S2 normal heart sound present, no gallops, no murmurs and no rubs GI Palpation (GI): No Abdominal aortic bruit present, Soft to palpation, nontender, No hepatosplenomegaly present and No Rebound tenderness present Auscultation: normal bowel sounds General: Yes no CVA tenderness Back/Spine/Pelvis Back: no CVA tenderness Cervical Spine: cervical ROM normal and No Cervical spine tenderness Thoracic/Lumbar Spine: thoraco-lumbar ROM normal, No pain with thoraco-lumbar ROM, No thoracic spinal tenderness and No lumbar spinal tenderness Extrem General: Yes normal to inspection, No edema and No calf tenderness Skin General: warm and dry. Normal skin color. Normal skin turgor Neuro General: patient oriented x3, gait normal and no focal neuro deficit Cranial nerves: Yes Equal, round and reactive pupils present Cognition (Neuro): normal cognition Gait exam (Neuro): Normal gait present Sensory Exam: No Sensory deficit (Neuro) Psych Appearance: grossly normal Affect: normal affect Attitude: cooperative Thought process: Normal thought process present Office Meds cyanocobalamin (vitamin B-12) 1,000 mcg/mL injection solution Performing Provider: Khadijah Colon CNP Performing Location: [facility] Administered by: Corina Schultz RN on 10/22/23 13:55 Dose Route Admin Location Dispensed Lot Number Expiration Date [employer] Transportation Operations Manager 1,000 mcg IM left deltoid 1 mL [id number] 10/21/24 72663-246-85 [employer] Assessment and Plan Assessment & Plan (1) Depression with anxiety: Code(s): F41.8 - Other specified anxiety disorders Plan: Reports controlled anxiety and depression symptoms and controlled sleep on current treatment regimen PHQ-9 score revealed mild depression. VICKIE-7 score is normal Continue current treatment regimen Routine exercise encouraged She met with the CHW who would place a new referral for a new therapist with [facility] with instructions to reveal caller ID Follow-up in 3 months or return sooner with worsening or new symptoms Verbalized understanding and agreed with the treatment plan (2) Insomnia: Code(s): G47.00 - Insomnia, unspecified Plan: As above (3) Vitamin B 12 deficiency: Code(s): E53.8 - Deficiency of other specified B group vitamins Plan: Recent vitamin B12 level in July was 206 The nurse with inject IM vitamin B12 today and instruct the patient on self administration. She may return for further teachings or vitamin B12 administration by the nurse Verbalized understanding and agreed with treatment plan Orders: Orders AMB Vitamin B12 Injection Patient Supplied 10/22/23 E53.8 - Deficiency of other specified B group vitamins Coding Level of Care Code Est Pt Level 4 (36951) Complex EM visit Add On G2211 Diagnoses Depression with anxiety F41.8 Insomnia G47.00 Vitamin B 12 deficiency E53.8 Additional Codes VICKIE-7 Assessment Billing - VICKIE-7 Assessment Tool: IVCKIE-7 Assessment 79883 ([id number])
[2023-10-22 12:03] VITALS: BP 126/68; PULSE 93; RESP 13; TEMP 36.6; O2SAT 99; BMI 23.7
== END 2023-10-22 13:50 | disposition home or self-care (01) ==
PROVIDERS: PCP Nurse Practitioner Family
DX: F41.8 Other specified anxiety disorders (principal); G47.00 Insomnia, unspecified; E53.8 Deficiency of other specified B group vitamins
CPT/HCPCS: 96372; 99214; J3420

== ENCOUNTER 2023-11-22 08:54 | Outpatient (AMB) | payer OTHER, SELFPAY ==
--- NOTE | 2023-11-22 09:48 | AM.OFFVISNUR ---
Intake Visit Reasons: B12 shot Allergies codeine Allergy (Severe, Verified 10/22/23 13:18) Vomiting/nausea omeprazole [From Prilosec] Allergy (Severe, Verified 10/22/23 13:18) rash erythromycin base Allergy (Mild, Verified 10/22/23 13:18) mild lansoprazole [From Prevacid] Allergy (Mild, Verified 10/22/23 13:18) rash Penicillins Allergy (Mild, Verified 10/22/23 13:18) rash Sulfa (Sulfonamide Antibiotics) Allergy (Mild, Verified 10/22/23 13:18) rash Office Meds cyanocobalamin (vitamin B-12) 1,000 mcg/mL injection solution Performing Provider: Khadijah Colon CNP Performing Location: [facility] Administered by: Jesusita Maldonado RN on 11/22/23 09:55 Dose Route Admin Location Dispensed Lot Number Expiration Date [employer] Photography Manager 1,000 mcg IM Left Deltoid 1 mL [id number] 10/21/24 24549-008-51 [employer] Assessment & Plan Assessment & Plan Orders: Orders AMB Vitamin B12 Injection Patient Supplied Today E53.8 - Deficiency of other specified B group vitamins Medications: New cyanocobalamin (vitamin B-12) 1,000 mcg IM ONCE 1 mL 0RF E53.8 - Deficiency of other specified B group vitamins
== END 2023-11-22 09:48 | disposition home or self-care (01) ==
PROVIDERS: PCP Nurse Practitioner Family; Visit Provider Nurse Practitioner Family
DX: E53.8 Deficiency of other specified B group vitamins (principal)
CPT/HCPCS: 96372; J3420

== ENCOUNTER 2023-12-20 09:09 | Outpatient (AMB) | payer OTHER, SELFPAY ==
--- NOTE | 2023-12-20 09:29 | AM.OFFVISNUR ---
Intake Visit Reasons: b12 Manager Of Investigations Required: No Accompanied by: Self / Same As Patient Allergies codeine Allergy (Severe, Verified 10/22/23 13:18) Vomiting/nausea omeprazole [From Prilosec] Allergy (Severe, Verified 10/22/23 13:18) rash erythromycin base Allergy (Mild, Verified 10/22/23 13:18) mild lansoprazole [From Prevacid] Allergy (Mild, Verified 10/22/23 13:18) rash Penicillins Allergy (Mild, Verified 10/22/23 13:18) rash Sulfa (Sulfonamide Antibiotics) Allergy (Mild, Verified 10/22/23 13:18) rash Nursing Note pt declines teaching for self administration at this time as she has a breast biopsey scheduled for this wednesday. vitamin B12 given left deltoid. Office Meds cyanocobalamin (vitamin B-12) 1,000 mcg/mL injection solution Performing Provider: Khadijah Colon CNP Performing Location: [facility] [place] [facility] Administered by: Corina Schultz RN on 12/20/23 09:31 Dose Route Admin Location Dispensed Lot Number Expiration Date [facility] Parent Educator 1,000 mcg IM left deltoid 1 mL [id number] 04/22/25 07349-076-15 [employer] Assessment & Plan Assessment & Plan Orders: Orders AMB Vitamin B12 Injection Patient Supplied Today E53.8 - Deficiency of other specified B group vitamins Medications: New cyanocobalamin (vitamin B-12) 1,000 mcg IM ONCE 1 mL 0RF E53.8 - Deficiency of other specified B group vitamins
== END 2023-12-20 09:26 | disposition home or self-care (01) ==
PROVIDERS: PCP Nurse Practitioner Family
DX: E53.8 Deficiency of other specified B group vitamins (principal)
CPT/HCPCS: 96372; J3420

== ENCOUNTER 2024-01-18 07:55 | Outpatient (AMB) | payer OTHER, SELFPAY ==
--- NOTE | 2024-01-18 08:00 | MHC.PC.OV ---
Vital Signs 01/18/24 08:06 Height 5 ft 3 in Weight 132 lb 4 oz BMI 23.4 BP 130/70 Blood Pressure Location Lt brachial Position Sitting Respiration 16 Pulse 93 Pulse Source Pulse Oximeter Temp 97.3 F Temp Source Oral Pulse Oximetry (%) 96 Oxygen Delivery Method Room Air Intake Visit Reasons: BREAST ISSUE/ 3MT FU ANXIETY, DEPRESSION Intake Note: patient here 3 month follow up on anxiety, depression and breast issues. Freelance Displayer Required: No Is last menstrual period known: No Post menopausal: No Patient : No Allergies codeine Allergy (Severe, Verified 01/18/24 08:14) Vomiting/nausea omeprazole [From Prilosec] Allergy (Severe, Verified 01/18/24 08:14) rash erythromycin base Allergy (Mild, Verified 01/18/24 08:14) mild lansoprazole [From Prevacid] Allergy (Mild, Verified 01/18/24 08:14) rash Penicillins Allergy (Mild, Verified 01/18/24 08:14) rash Sulfa (Sulfonamide Antibiotics) Allergy (Mild, Verified 01/18/24 08:14) rash Medication List - Last Reconciled 01/18/24 by Khadijah Colon CNP bupropion HCl XL 150 mg PO QAM buspirone 10 mg PO BID 30 days calcium carbonate (Calcium 600) PO .twice clopidogrel 75 mg PO DAILY cyanocobalamin (vitamin B-12) 1,000 mcg IM Q4W 4 weeks dicyclomine 10 mg PO TID duloxetine 60 mg PO DAILY famotidine (Pepcid) 40 mg PO BID PRN levothyroxine 75 mcg PO DAILY magnesium citrate (SlowMag Muscle Recovery) mg PO rabeprazole (AcipHex) 20 mg PO BID ropinirole one in the am and noon then 2 at hs orally; trazodone 25 mg (1/2 x 50 mg) PO BEDTIME PRN 30 days Tobacco use date assessed: 01/18/24 Fall risk assessment: 1 Fall in past year Last assessed Fall Risk: 01/18/24 Dental Screening Dental Screen Date: 01/18/24 Did you have a dental visit in the last 12 months?: No Did you have a dental problem in the last 6 months where you did not have access to dental care?: No Was dental information given to patient?: Patient has dentist HPI HPI Comments History of Present Illness Details 73-year-old female presents for anxiety and depression follow-up She admits to taking her medications as prescribed without adverse reactions She reports increased anxiety and depressive symptoms with his attributes to her current right breast condition. She notes that her sleep is poor, she sleeps an average of 4-5 hours, uninterrupted. She notes passive suicide ideation related to everything that is going on. She denies active SI. She denies HI or AVH. She contracts for safety Recent mammogram revealed a mass in the right breast; ultrasound showed benign cyst in the right breast; 0.3 cm ovoid mass in the inferior right breast is indeterminate and tomosynthesis guided biopsy is recommended. Stereotactic core biopsy performed on 12/22/2023 revealed benign breast tissue/radical scar, does not reveal malignancy. However, there are finding that require further action, such as consultation with a breast surgeon or a specialist in high risk breast lesions. She was advised to contact her PCP to discuss results and determine if any additional follow-up is necessary She notes that she had an intake for psychotherapy 10 days ago. She was informed she will be contacted within 2 weeks to start therapy [facility] Medical History Kidney stones Stroke Crohn disease Depression Surgical History History of cholecystectomy H/O hernia repair History of bowel resection H/O: hysterectomy Family History Other Mental health disorder Social History Household Members: Children Housing: Other (mobile home) Alcohol intake: never Patient Tobacco Use Status: Former Tobacco user Years Smoked: 10 years e-Cigarette/Vaping Use: Never Used Second Hand Smoke Exposure: No service: No Current occupational status: retired Current occupational exposures/hazards: No Cognitive needs: No Hearing needs: No Vision needs: No Questionnaire PHQ-9 Over the last 2 weeks, how often have you been bothered by any of the following problems? 1. Little interest or pleasure in doing things: nearly every day 2. Feeling down, depressed, or hopeless: nearly every day 3. Trouble falling or staying asleep, or sleeping too much: nearly every day 4. Feeling tired or having little energy: more than half the days 5. Poor appetite or overeating: not at all 6. Feeling bad about yourself - or that you are a failure or have let yourself or your family down: nearly every day 7. Trouble concentrating on things, such as reading the newspaper or watching television: nearly every day 8. Moving or speaking so slowly that other people could have noticed. Or the opposite - being so fidgety or restless that you have been moving around a lot more than usual: not at all 9. Thoughts that you would be better off or of hurting yourself in some way: several days Total score: 18 Depression Screening Interpretation: Positive Depression Screening Follow-up: Existing condition and In treatment Depression Screening Done: Yes Source: Developed by Drs. Iban Mcnamara, Martha Kim, Nick Acosta and colleagues, with an educational rosa maria from [employer]. Thrive Questionnaire Date Thrive assessed: 06/15/23 VICKIE-7 AMB Questionnaire VICKIE-7 Date VICKIE - 7 assessed: 01/18/24 Feeling nervous, anxious, or on edge: 2 = More than half the days Not being able to stop or control worryin = Nearly every day Worrying too much about different things: 2 = More than half the days Trouble relaxin = More than half the days Being so restless that it is hard to sit still: 0 = Not at all Becoming easily annoyed or irritable: 2 = More than half the days Feeling afraid as if something awful might happen: 3 = Nearly every day Total VICKIE-7 score (0-4 normal; 5-9 mild; 10-14 moderate; 15-21 severe): 14 Source: Developed by Drs. Iban Mcnamara, Martha Kim, Nick Acosta and colleagues, with an educational rosa maria from [employer]. VICKIE-7 Assessment Billing VICKIE-7 Assessment Tool: VICKIE-7 Assessment 06134 Review of Systems Const Details: Const Denies chills, Denies fatigue, Denies fever(s), Denies headache(s) and Denies weakness ENT Denies dizziness and Denies headache(s) Card Denies chest pain, Denies lightheadedness, Denies dyspnea and Denies other (Palpitations) Resp Denies cough, Denies dyspnea, Denies wheezing and Denies other ( shortness of breath) GI Denies abdominal pain, Denies melena, Denies hematochezia, Denies change in bowel habits, Denies dyspepsia and Denies nausea Denies hematuria and Denies dysuria Musc Denies abnormal gait, Denies myalgias, Denies arthralgias, Denies numbness and Denies tingling Skin/Breast Denies rash, Denies unusual bruising and Denies wounds Neuro Denies abnormal gait, Denies dizziness, Denies headache(s), Denies memory loss, Denies numbness, Denies Sensory deficit (Neuro), Denies tingling and Denies weakness Psych Reports anxiety, Reports depression, Denies memory loss Endo Denies cold intolerance, Denies fatigue, Denies heat intolerance, Denies polydipsia and Denies polyuria Aller/Immun Denies wheezing Physical exam (Primary Care) Vital Signs: Last Vital Signs Temp 97.3 F 01/18/24 08:06 Pulse 93 01/18/24 08:06 Resp 16 01/18/24 08:06 BP 130/70 01/18/24 08:06 Pulse Ox 96 01/18/24 08:06 Oxygen Delivery Method Room Air 01/18/24 08:06 BMI result Body Mass Index 23.4 Tobacco/Smoking Status: Tobacco use Status Tobacco use date assessed 01/18/24 01/18/24 08:05 Patient Tobacco Use Status Former Tobacco user 01/18/24 08:03 e-Cigarette/Vaping Use Never Used 01/18/24 08:03 PHQ-9: PHQ-9 Score PHQ-9: Total score 18 01/18/24 08:19 Depression Screening Interpretation: Positive Depression Screening Follow-up: Existing condition and In treatment Thrive Assessment: Date of Thrive Assessment Date Thrive assessed 06/15/23 01/18/24 08:03 Const Other: General: no acute distress and well developed Nutritional Appearance: well nourished Orientation/consciousness: patient oriented x3 HENMT Head: Yes normocephalic and Yes atraumatic Eyes General: appearance normal, both eyes and all related structures Pupils: Equal, round and reactive pupils present EOM: EOMs intact bilaterally Resp Effort & Inspection: normal respiratory effort Auscultation: clear to auscultation bilaterally Cardio Rate: regular rate Rhythm: regular rhythm Heart sounds: S1 normal heart sound present, S2 normal heart sound present, no gallops, no murmurs and no rubs GI Palpation (GI): No Abdominal aortic bruit present, Soft to palpation, nontender, No hepatosplenomegaly present and No Rebound tenderness present Auscultation: normal bowel sounds General: Yes no CVA tenderness Back/Spine/Pelvis Back: no CVA tenderness Cervical Spine: cervical ROM normal and No Cervical spine tenderness Thoracic/Lumbar Spine: thoraco-lumbar ROM normal, No pain with thoraco-lumbar ROM, No thoracic spinal tenderness and No lumbar spinal tenderness Extrem General: Yes normal to inspection, No edema and No calf tenderness Skin General: warm and dry. Normal skin color. Normal skin turgor Neuro General: patient oriented x3, gait normal and no focal neuro deficit Cranial nerves: Yes Equal, round and reactive pupils present Cognition (Neuro): normal cognition Gait exam (Neuro): Normal gait present Sensory Exam: No Sensory deficit (Neuro) Psych Appearance: grossly normal Affect: normal affect Attitude: cooperative Thought process: Normal thought process present Assessment and Plan Assessment & Plan (1) Depression with anxiety: Code(s): F41.8 - Other specified anxiety disorders Plan: Reports increased anxiety and depressive symptoms which she attributes to a current diagnosis of the left breast. Sleep has also been an issue PHQ-9 and VICKIE-7 scores revealed moderately severe depression moderate anxiety respectively Will increase buspirone to 10 mg 3 times a day to target anxiety and trazodone to 50 mg every night to target insomnia. Advised to take her medications as prescribed Routine exercise encouraged Encouraged to contact psychotherapy facility if she is not contacted within 2 weeks Follow-up in 2 weeks or sooner with worsening or new symptoms Verbalized understanding and agreed with the treatment plan (2) Abnormal mammogram of right breast: Code(s): R92.8 - Other abnormal and inconclusive findings on diagnostic imaging of breast Plan: Recent ultrasound and Stereotactic core biopsy results reviewed with the patient; benign scar tissue Referred to [facility] breast surgeon for consultation (3) Osteoporosis: Code(s): M81.0 - Age-related osteoporosis without current pathological fracture Plan: Recent DEXA scan revealed osteoporosis She is currently on calcium carbonate 600 mg twice daily Referred to [facility] endocrinology Orders: Referrals Breast Surgery Referral R92.8 - Other abnormal and inconclusive findings on diagnostic imaging of breast Endocrinology Referral M81.0 - Age-related osteoporosis without current pathological fracture Medications: Changed From trazodone 25 mg (1/2 x 50 mg) PO BEDTIME 30 days PRN 30 tabs 3RF sleep To trazodone 50 mg PO BEDTIME PRN 30 tabs 3RF sleep 30 days From buspirone 10 mg PO BID 30 days 60 tabs 3RF To buspirone 10 mg PO TID 90 tabs 3RF 30 days Coding Level of Care Code Est Pt Level 4 (23316) Diagnoses Depression with anxiety F41.8 Abnormal mammogram of right breast R92.8 Osteoporosis M81.0 Additional Codes VICKIE-7 Assessment Billing - VICKIE-7 Assessment Tool: VICKIE-7 Assessment [id number] ([id number])
[2024-01-18 08:06] VITALS: BP 130/70; PULSE 93; RESP 16; TEMP 36.3; O2SAT 96; BMI 23.4
== END 2024-01-18 08:46 | disposition home or self-care (01) ==
PROVIDERS: PCP Nurse Practitioner Family; Visit Provider Nurse Practitioner Family
DX: F41.8 Other specified anxiety disorders (principal); R92.8 Other abnormal and inconclusive findings on diagnostic imaging of breast; M81.0 Age-related osteoporosis without current pathological fracture
CPT/HCPCS: 96127; 99214

== ENCOUNTER 2024-02-04 16:15 | Outpatient (AMB) | payer OTHER, SELFPAY ==
--- NOTE | 2024-02-04 16:12 | A.OFFPC_ITS ---
Vital Signs 02/04/24 16:24 Height 5 ft 3 in Weight 134 lb 8 oz BMI 23.8 BP 138/78 Blood Pressure Location Rt brachial Position Sitting Respiration 14 Pulse 89 Pulse Source Pulse Oximeter Pulse Oximetry (%) 98 Oxygen Delivery Method Room Air Intake Visit Reasons: 2weeksAnxiety&Depretion Intake Note: Follow up anxiety and depression. Allergies codeine Allergy (Severe, Verified 02/04/24 16:18) Vomiting/nausea omeprazole [From Prilosec] Allergy (Severe, Verified 02/04/24 16:18) rash erythromycin base Allergy (Mild, Verified 02/04/24 16:18) mild lansoprazole [From Prevacid] Allergy (Mild, Verified 02/04/24 16:18) rash Penicillins Allergy (Mild, Verified 02/04/24 16:18) rash Sulfa (Sulfonamide Antibiotics) Allergy (Mild, Verified 02/04/24 16:18) rash Tobacco use date assessed: 01/18/24 Dental Screening Dental Screen Date: 01/18/24 HPI HPI Comments History of Present Illness Details 73-year-old female presents for anxiety and depression follow-up She admits to taking her medications as prescribed without adverse reactions She reports controlled anxiety and depressive symptoms. She has been sleeping well She started psychotherapy with Zoraida two days ago and found it helpful. She will be dong weekly therapy She reports history of eczema and notes she currently has itchy rash to the dorsum of her fingers. She was using a steroid ointment which she ran out of She is looking forward to her appointment with [facility] [place] [facility] Medical History Kidney stones Stroke Crohn disease Depression Surgical History History of cholecystectomy H/O hernia repair History of bowel resection H/O: hysterectomy Family History Other Mental health disorder Social History Household Members: Children Housing: Other (mobile home) Alcohol intake: never Patient Tobacco Use Status: Former Tobacco user Years Smoked: 10 years e-Cigarette/Vaping Use: Never Used Second Hand Smoke Exposure: No service: No Current occupational status: retired Current occupational exposures/hazards: No Cognitive needs: No Hearing needs: No Vision needs: No Questionnaire PHQ-9 Over the last 2 weeks, how often have you been bothered by any of the following problems? 1. Little interest or pleasure in doing things: several days 2. Feeling down, depressed, or hopeless: several days 3. Trouble falling or staying asleep, or sleeping too much: several days 4. Feeling tired or having little energy: several days 5. Poor appetite or overeating: several days 6. Feeling bad about yourself - or that you are a failure or have let yourself or your family down: several days 7. Trouble concentrating on things, such as reading the newspaper or watching television: more than half the days 8. Moving or speaking so slowly that other people could have noticed. Or the opposite - being so fidgety or restless that you have been moving around a lot more than usual: several days 9. Thoughts that you would be better off or of hurting yourself in some way: not at all Total score: 9 Depression Screening Interpretation: Positive Depression Screening Follow-up: Existing condition and In treatment Depression Screening Done: Yes 64683 - PHQ-9 Billing: Yes Source: Developed by Drs. Iban Mcnamara, Martha Kim, Nick Acosta and colleagues, with an educational rosa maria from [employer]. Thrive Questionnaire Date Thrive assessed: 06/15/23 VICKIE-7 AMB Questionnaire VICKIE-7 Date VICKIE - 7 assessed: 02/04/24 Feeling nervous, anxious, or on edge: 1 = Several days Not being able to stop or control worryin = More than half the days Worrying too much about different things: 1 = Several days Trouble relaxin = Several days Being so restless that it is hard to sit still: 0 = Not at all Becoming easily annoyed or irritable: 1 = Several days Feeling afraid as if something awful might happen: 0 = Not at all Total VICKIE-7 score (0-4 normal; 5-9 mild; 10-14 moderate; 15-21 severe): 6 Source: Developed by Drs. Iban Mcnamara, Nick Sotelo and colleagues, with an educational rosa maria from [employer]. VICKIE-7 Assessment Billing VICKIE-7 Assessment Tool: VICKIE-7 Assessment 60328 Review of Systems Const Details: Const Denies chills, Denies fatigue, Denies fever(s), Denies headache(s) and Denies weakness ENT Denies dizziness and Denies headache(s) Card Denies chest pain, Denies lightheadedness, Denies dyspnea and Denies other (Palpitations) Resp Denies cough, Denies dyspnea, Denies wheezing and Denies other ( shortness of breath) GI Denies abdominal pain, Denies melena, Denies hematochezia, Denies change in bowel habits, Denies dyspepsia and Denies nausea Denies hematuria and Denies dysuria Musc Denies abnormal gait, Denies myalgias, Denies arthralgias, Denies numbness and Denies tingling Skin/Breast Reports as per HPI Neuro Denies abnormal gait, Denies dizziness, Denies headache(s), Denies memory loss, Denies numbness, Denies Sensory deficit (Neuro), Denies tingling and Denies weakness Psych Denies anxiety, Denies depression, Denies memory loss Endo Denies cold intolerance, Denies fatigue, Denies heat intolerance, Denies polydipsia and Denies polyuria Aller/Immun Denies wheezing Physical exam (Primary Care) Tobacco/Smoking Status: Tobacco use Status Tobacco use date assessed 01/18/24 02/04/24 16:13 Patient Tobacco Use Status Former Tobacco user 02/04/24 16:13 e-Cigarette/Vaping Use Never Used 02/04/24 16:13 Depression Screening Interpretation: Positive Depression Screening Follow-up: Existing condition and In treatment Thrive Assessment: Date of Thrive Assessment Date Thrive assessed 06/15/23 02/04/24 16:13 Const Other: General: no acute distress and well developed Nutritional Appearance: well nourished Orientation/consciousness: patient oriented x3 HENMT Head: Yes normocephalic and Yes atraumatic Eyes General: appearance normal, both eyes and all related structures Pupils: Equal, round and reactive pupils present EOM: EOMs intact bilaterally Resp Effort & Inspection: normal respiratory effort Auscultation: clear to auscultation bilaterally Cardio Rate: regular rate Rhythm: regular rhythm Heart sounds: S1 normal heart sound present, S2 normal heart sound present, no gallops, no murmurs and no rubs GI Palpation (GI): No Abdominal aortic bruit present, Soft to palpation, nontender, No hepatosplenomegaly present and No Rebound tenderness present Auscultation: normal bowel sounds General: Yes no CVA tenderness Back/Spine/Pelvis Back: no CVA tenderness Cervical Spine: cervical ROM normal and No Cervical spine tenderness Thoracic/Lumbar Spine: thoraco-lumbar ROM normal, No pain with thoraco-lumbar ROM, No thoracic spinal tenderness and No lumbar spinal tenderness Extrem General: Yes normal to inspection, No edema and No calf tenderness Skin General: warm and dry. Normal skin color. Normal skin turgor. Red, dry, scaly rash noted to the dorsum of her fingers, consistent with eczema Neuro General: patient oriented x3, gait normal and no focal neuro deficit Cranial nerves: Yes Equal, round and reactive pupils present Cognition (Neuro): normal cognition Gait exam (Neuro): Normal gait present Sensory Exam: No Sensory deficit (Neuro) Psych Appearance: grossly normal Affect: normal affect Attitude: cooperative Thought process: Normal thought process present Assessment and Plan Assessment & Plan (1) Depression with anxiety: Code(s): F41.8 - Other specified anxiety disorders Plan: Reports controlled anxiety and depressive symptoms PHQ-9 and VICKIE-7 scores revealed mild depression and anxiety Continue current treatment regimen Routine exercise encouraged Follow-up with therapist as planned Return in 2 months or sooner with worsening or new symptoms Verbalized understanding and agreed with the treatment plan (2) Eczema: Code(s): L30.9 - Dermatitis, unspecified Plan: She reports history of eczema and notes she currently has itchy rash to the dorsum of her fingers. She was using a steroid ointment which she ran out of Red, dry, scaly rash noted to the dorsum of her fingers, consistent with eczema Betamethasone ointment ordered. Advised to use as prescribed Return with worsening or new signs and symptoms Verbalized understanding and agreed with the plan Medications: New betamethasone dipropionate 0.05% 1 appl topical BID PRN 45 grams 2RF skin irritation Coding Level of Care Code Est Pt Level 4 (19214) Diagnoses Depression with anxiety F41.8 Eczema L30.9 Additional Codes VICKIE-7 Assessment Billing - VICKIE-7 Assessment Tool: VICKIE-7 Assessment [id number] ([id number])
[2024-02-04 16:24] VITALS: BP 138/78; PULSE 89; RESP 14; O2SAT 98; BMI 23.8
== END 2024-02-04 16:35 | disposition home or self-care (01) ==
PROVIDERS: PCP Nurse Practitioner Family; Visit Provider Nurse Practitioner Family
DX: F41.8 Other specified anxiety disorders (principal); L30.9 Dermatitis, unspecified
CPT/HCPCS: 96127; 99214

== ENCOUNTER 2024-02-07 09:01 | Outpatient (AMB) | payer OTHER, SELFPAY ==
--- NOTE | 2024-02-07 09:25 | AM.OFFVISNUR ---
Intake Visit Reasons: b-12 shot Allergies codeine Allergy (Severe, Verified 02/04/24 16:18) Vomiting/nausea omeprazole [From Prilosec] Allergy (Severe, Verified 02/04/24 16:18) rash erythromycin base Allergy (Mild, Verified 02/04/24 16:18) mild lansoprazole [From Prevacid] Allergy (Mild, Verified 02/04/24 16:18) rash Penicillins Allergy (Mild, Verified 02/04/24 16:18) rash Sulfa (Sulfonamide Antibiotics) Allergy (Mild, Verified 02/04/24 16:18) rash Nursing Note pt came for here vitamin B12 injection. says she will make an seven't for 4 weeks from today for next injection. Office Meds cyanocobalamin (vitamin B-12) 1,000 mcg/mL injection solution Performing Provider: Khadijah Colon CNP Performing Location: [facility] [place] [facility] Administered by: Corina Schultz RN on 02/07/24 09:25 Dose Route Admin Location Dispensed Lot Number Expiration Date [facility] [employer] 1,000 mcg IM left deltoid 1 mL [id number] 02/20/25 84422-830-88 [employer] Assessment & Plan Assessment & Plan Orders: Orders AMB Vitamin B12 Injection Patient Supplied Today E53.8 - Deficiency of other specified B group vitamins Medications: New cyanocobalamin (vitamin B-12) 1,000 mcg IM ONCE 1 mL 0RF E53.8 - Deficiency of other specified B group vitamins Discontinued cyanocobalamin (vitamin B-12) Discontinued Reason: More recent result 1,000 mcg IM ONCE 1 mL 0RF E53.8 - Deficiency of other specified B group vitamins
== END 2024-02-07 09:22 | disposition home or self-care (01) ==
PROVIDERS: PCP Nurse Practitioner Family; Visit Provider Nurse Practitioner Family
DX: E53.8 Deficiency of other specified B group vitamins (principal)
CPT/HCPCS: J3420

== ENCOUNTER → 2024-02-07 09:01 | Outpatient (BNVA) | payer OTHER, SELFPAY | PROVIDERS: PCP Nurse Practitioner Family; Visit Provider Nurse Practitioner Family | DX: E53.8 Deficiency of other specified B group vitamins (principal) | CPT/HCPCS: 96372; J3420 ==

== ENCOUNTER 2024-02-09 10:14 | Outpatient (AMB) | payer OTHER, SELFPAY ==
--- NOTE | 2024-02-09 10:19 | MHC.OFFVIS ---
Vital Signs 02/09/24 10:20 Height 5 ft 3 in Weight 134 lb 7.994 oz BMI 23.8 Intake Visit Reasons: Abnormal findings/ inconclusive on br imaging Intake Note: This patient presents for Abnormal findings/ inconclusive on breast imaging. ([facility]) Pt c/o; reports no new complaints. 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 Accompanied by: Self / Same As Patient Allergies codeine Allergy (Severe, Verified 02/09/24 10:32) Vomiting/nausea levofloxacin [From Levaquin] Allergy (Severe, Verified 02/09/24 10:32) Unknown omeprazole [From Prilosec] Allergy (Severe, Verified 02/09/24 10:32) rash sulfamethoxazole [From Bactrim] Allergy (Severe, Verified 02/09/24 10:32) Unknown trimethoprim [From Bactrim] Allergy (Severe, Verified 02/09/24 10:32) Unknown erythromycin base Allergy (Mild, Verified 02/09/24 10:32) mild lansoprazole [From Prevacid] Allergy (Mild, Verified 02/09/24 10:32) rash Penicillins Allergy (Mild, Verified 02/09/24 10:32) rash Sulfa (Sulfonamide Antibiotics) Allergy (Mild, Verified 02/09/24 10:32) rash Medication List - Last Reconciled 02/09/24 by Hua Hill MD betamethasone dipropionate 0.05% 1 appl topical BID PRN bupropion HCl XL 150 mg PO QAM buspirone 10 mg PO TID 30 days calcium carbonate (Calcium 600) PO .twice clopidogrel 75 mg PO DAILY cyanocobalamin (vitamin B-12) 1,000 mcg IM Q4W 4 weeks dicyclomine 10 mg PO TID duloxetine 60 mg PO DAILY famotidine (Pepcid) 40 mg PO BID PRN levothyroxine 75 mcg PO DAILY magnesium citrate (SlowMag Muscle Recovery) mg PO rabeprazole (AcipHex) 20 mg PO BID ropinirole one in the am and noon then 2 at hs orally; trazodone 50 mg PO BEDTIME PRN 30 days HPI HPI Abnormal findings/ inconclusive on br imaging: Details: 73 year old female referred for abnormal mammograms. She actually has been undergoing mammograms in [facility] as she lives in [place]. She had a mammogram showing a subcentimeter nodule in the right breast earlier this year. She had a biopsy last November, showing benign breast tissue with a radial scar. She denies any palpable breast mass or any nipple or skin changes She says that her mother was diagnosed to have breast cancer in her 70s Her menarche was the age of 12. Her 1st was the age of 18. She had 4 pregnancies. She had menopause in her 50s. [facility] Medical History (Updated 02/09/24 @ 10:56 by Hua Hill MD) Radial scar of right breast Kidney stones Stroke Crohn disease Depression Surgical History History of cholecystectomy H/O hernia repair History of bowel resection H/O: hysterectomy Family History Other Mental health disorder Social History Household Members: Children Housing: Other (mobile home) Alcohol intake: never Patient Tobacco Use Status: Former Tobacco user Years Smoked: 10 years e-Cigarette/Vaping Use: Never Used Second Hand Smoke Exposure: No service: No Current occupational status: retired Current occupational exposures/hazards: No Cognitive needs: No Hearing needs: No Vision needs: No Review of Systems Const Denies chills and Denies fever(s) Card Denies chest pain, Denies dyspnea and Denies dyspnea on exertion Resp Denies cough, Denies dyspnea and Denies dyspnea on exertion GI Denies hematochezia and Denies change in bowel habits Denies hematuria Musc Denies back pain and Denies limited range of motion Neuro Denies focal weakness and Denies convulsions Psych Denies depression and Denies mood swings Physical Exam Vital Signs: BMI result Body Mass Index 23.8 Const General: comfortable and no acute distress Orientation/consciousness: patient oriented x3 Neck Neck: Yes no lymphadenopathy Chest Other: No palpable breast masses or nipple or skin changes Resp Auscultation: clear to auscultation bilaterally Cardio Rhythm: regular rhythm GI Palpation (GI): Soft to palpation, nontender and no guarding Neuro General: patient oriented x3 Assessment & Plan Assessment & Plan (1) Radial scar of right breast: Code(s): N64.89 - Other specified disorders of breast Category: Medical Plan: She had a subcentimeter nodule on mammogram on the right breast. Biopsies of the this had shown a radial scar. I explained to her options at this time. One option is to do excision with localization. This will be done in the operating room under anesthesia. The other option is to do close monitoring with follow up mammograms or an MRI at this point She does not want proceed with any surgical intervention for now. I am going to order for an MRI for her because of this finding. I will see her in the office to discuss her MRI. I will also review the rest of her records from [facility]. Coding Level of Care Code New Pt Level 3 (13081) Diagnoses Radial scar of right breast N64.89
[2024-02-09 10:20] VITALS: BMI 23.8
== END 2024-02-09 10:55 | disposition home or self-care (01) ==
PROVIDERS: PCP Nurse Practitioner Family; Referring Provider Nurse Practitioner Family; Visit Provider Surgery
DX: N64.89 Other specified disorders of breast (principal)
CPT/HCPCS: 99203

== ENCOUNTER → 2024-02-09 10:14 | Outpatient (BNVA) | payer OTHER, SELFPAY | PROVIDERS: PCP Nurse Practitioner Family; Referring Provider Nurse Practitioner Family; Visit Provider Surgery | DX: N64.89 Other specified disorders of breast (principal) | CPT/HCPCS: 99202 ==

== ENCOUNTER 2024-03-01 14:30 | Outpatient (AMB) | payer OTHER, SELFPAY ==
[2024-03-01 14:37] VITALS: BP 140/90; PULSE 57; BMI 23.9
--- NOTE | 2024-03-01 14:37 | MHC.OFFVIS ---
Vital Signs 03/01/24 14:37 Height 5 ft 3 in Weight 134 lb 11.239 oz BMI 23.9 BP 140/90 H Blood Pressure Location Lt brachial Position Sitting Pulse 57 Pulse Source Pulse Oximeter Intake Visit Reasons: Osteoporosis-conf Intake Note: New patient present today for Osteoporosis office visit. 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 Accompanied by: Self / Same As Patient Allergies codeine Allergy (Severe, Verified 03/01/24 14:41) Vomiting/nausea levofloxacin [From Levaquin] Allergy (Severe, Verified 03/01/24 14:41) Unknown omeprazole [From Prilosec] Allergy (Severe, Verified 03/01/24 14:41) rash sulfamethoxazole [From Bactrim] Allergy (Severe, Verified 03/01/24 14:41) Unknown trimethoprim [From Bactrim] Allergy (Severe, Verified 03/01/24 14:41) Unknown erythromycin base Allergy (Mild, Verified 03/01/24 14:41) mild lansoprazole [From Prevacid] Allergy (Mild, Verified 03/01/24 14:41) rash Penicillins Allergy (Mild, Verified 03/01/24 14:41) rash Sulfa (Sulfonamide Antibiotics) Allergy (Mild, Verified 03/01/24 14:41) rash Medication List - Last Reconciled 03/01/24 by Iban Sanchez MD betamethasone dipropionate 0.05% 1 appl topical BID PRN bupropion HCl XL 150 mg PO QAM buspirone 10 mg PO TID 30 days calcium carbonate (Calcium 600) PO .twice clopidogrel 75 mg PO DAILY cyanocobalamin (vitamin B-12) 1,000 mcg IM Q4W 4 weeks dicyclomine 10 mg PO TID duloxetine 60 mg PO DAILY famotidine (Pepcid) 40 mg PO BID PRN levothyroxine 75 mcg PO DAILY magnesium citrate (SlowMag Muscle Recovery) mg PO rabeprazole (AcipHex) 20 mg PO BID ropinirole one in the am and noon then 2 at hs orally; trazodone 50 mg PO BEDTIME PRN 30 days HPI Comments Details: 73 YO Female is seen in consultation at the request of PCP for Osteoporosis. First diagnosed in 20 yrs . Received treatment in the past with fosamax for 5 yrs , 20 yrs ago . Tolerated treatment well without complication. No history of pathologic fracture or ONJ. Has several servings of dietary calcium per day in the form of cheese, broccoli, salmon . Takes Calcium supplement 1200 mg daily in divided doses. Takes 2000 IU of Vitamin D daily. Use PPI, anticoagulant Clopidrogel , antiepileptic or glucocorticoid medication. 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 Not UTD on dental cleanings and sees dentist every 6 months. No planned upcoming dental work or extractions. DXA dated []: T-score of-3.3 in the femoral neck and -2.6 lumbar spine Labs: [facility] Medical History (Updated 02/09/24 @ 10:56 by Hua Hill MD) Radial scar of right breast Kidney stones Stroke Crohn disease Depression Surgical History History of cholecystectomy H/O hernia repair History of bowel resection H/O: hysterectomy Family History Other Mental health disorder Social History Household Members: Children Housing: Other (mobile home) Alcohol intake: never Patient Tobacco Use Status: Former Tobacco user Years Smoked: 10 years e-Cigarette/Vaping Use: Never Used Second Hand Smoke Exposure: No service: No Current occupational status: retired Current occupational exposures/hazards: No Cognitive needs: No Hearing needs: No Vision needs: No Physical Exam There are no Cushingoid features. Absence of blue sclera. Absence of kyphosis. Thyroid gland is of nl size and weighs 15 gms. There are no thyroid nodules palpated. Lungs CTA. Heart S1 S2 Reg R/R Abdominal exam benign. Muscle strength 5/5 . Examination of spine reveals absence of tenderness on palpation Assessment & Plan Assessment & Plan (1) Osteoporosis: Code(s): M81.0 - Age-related osteoporosis without current pathological fracture Category: Medical Plan: This is a 73-year-old female with a history of osteoporosis. Rule out secondary causes Plan is to complete the secondary workup by checking a phosphorus, 24 hour urine for calcium and creatinine, 25 hydroxy vitamin-D, SPEP, urine immunofixation. Will ensure 1200 mg of calcium total and 2000 IU of vitamin D3. Assuming secondary workup is negative could consider initial treatment with anabolic like Evenity, Tymlos or Forteo followed by an anti resorptive considering patient is a very high risk for fracture with very low bone density. The previous history of stroke many years ago is not an absolute contraindication to giving Evenity Orders: Orders Phosphorus Today M81.0 - Age-related osteoporosis without current pathological fracture Calcium, 24 Hr Ur Today M81.0 - Age-related osteoporosis without current pathological fracture Creatinine, 24 Hr Group Today M81.0 - Age-related osteoporosis without current pathological fracture Vitamin D 25-OH Total Today M81.0 - Age-related osteoporosis without current pathological fracture Protein Electrophoresis, Serum Today M81.0 - Age-related osteoporosis without current pathological fracture Immunofixation, Random Urine Today M81.0 - Age-related osteoporosis without current pathological fracture Coding Level of Care Code New Pt Level 4 (08740) Diagnoses Osteoporosis M81.0
== END 2024-03-01 15:24 | disposition home or self-care (01) ==
PROVIDERS: PCP Nurse Practitioner Family; Visit Provider Internal Medicine Endocrinology, Diabetes & Metabolism
DX: M81.0 Age-related osteoporosis without current pathological fracture (principal)
CPT/HCPCS: 99204

== ENCOUNTER → 2024-03-01 14:30 | Outpatient (BNVA) | payer OTHER, SELFPAY | PROVIDERS: PCP Nurse Practitioner Family; Visit Provider Internal Medicine Endocrinology, Diabetes & Metabolism | DX: M81.0 Age-related osteoporosis without current pathological fracture (principal) | CPT/HCPCS: 99202 ==

== ENCOUNTER → 2024-03-06 08:56 | Outpatient (AMB) | payer OTHER, SELFPAY ==
--- NOTE | 2024-03-06 09:20 | AM.OFFVISNUR ---
Intake Visit Reasons: B-12 shot Allergies codeine Allergy (Severe, Verified 03/01/24 14:41) Vomiting/nausea levofloxacin [From Levaquin] Allergy (Severe, Verified 03/01/24 14:41) Unknown omeprazole [From Prilosec] Allergy (Severe, Verified 03/01/24 14:41) rash sulfamethoxazole [From Bactrim] Allergy (Severe, Verified 03/01/24 14:41) Unknown trimethoprim [From Bactrim] Allergy (Severe, Verified 03/01/24 14:41) Unknown erythromycin base Allergy (Mild, Verified 03/01/24 14:41) mild lansoprazole [From Prevacid] Allergy (Mild, Verified 03/01/24 14:41) rash Penicillins Allergy (Mild, Verified 03/01/24 14:41) rash Sulfa (Sulfonamide Antibiotics) Allergy (Mild, Verified 03/01/24 14:41) rash Office Meds cyanocobalamin (vitamin B-12) 1,000 mcg/mL injection solution Performing Provider: Khadijah Colon CNP Performing Location: [facility] Administered by: Jesusita Maldonado RN on 03/06/24 09:20 Dose Route Admin Location Dispensed Lot Number Expiration Date [facility] Lead Teacher 1,000 mcg IM Left Deltoid 1 mL [id number] 02/20/25 72302-759-61 [employer] Assessment & Plan Assessment & Plan Orders: Orders AMB Vitamin B12 Injection Patient Supplied Today E53.8 - Deficiency of other specified B group vitamins Medications: New cyanocobalamin (vitamin B-12) 1,000 mcg IM ONCE 1 mL 0RF E53.8 - Deficiency of other specified B group vitamins
== END ==
PROVIDERS: PCP Nurse Practitioner Family; Visit Provider Nurse Practitioner Family
DX: E53.8 Deficiency of other specified B group vitamins (principal)
CPT/HCPCS: J3420

== ENCOUNTER → 2024-03-06 08:56 | Outpatient (BNVA) | payer OTHER, SELFPAY | PROVIDERS: PCP Nurse Practitioner Family; Visit Provider Nurse Practitioner Family | DX: E53.8 Deficiency of other specified B group vitamins (principal) | CPT/HCPCS: 96372 ==

== ENCOUNTER 2024-03-29 09:33 | Outpatient (REF) | payer OTHER, SELFPAY ==
[2024-03-29 11:41] LABS: Phosphorus 2.8 mg/dL (2.7-4.5)
[2024-03-29 12:01] LABS: Vitamin D 25-OH Total 39.4 ng/mL (>30)
[2024-03-31 09:43] LABS: Prot Elec - Albumin 4.2 g/dL (3.8-4.8); Prot Elec - Alpha1 0.3 g/dL (0.2-0.3); Prot Elec - Alpha2 0.8 g/dL (0.5-0.9); Prot Elec - Beta 1 0.6 g/dL (0.4-0.6); Prot Elec - Beta 2 0.3 g/dL (0.2-0.5); Prot Elec - Gamma 0.9 g/dL (0.8-1.7); Prot Elec - Total Protein 6.9 g/dL (6.1-8.1)
== END 2024-03-29 09:34 | disposition home or self-care (01) ==
LOC: HO.LAB 09:33
PROVIDERS: PCP Nurse Practitioner Family; Visit Provider Internal Medicine Endocrinology, Diabetes & Metabolism
DX: M81.0 Age-related osteoporosis without current pathological fracture (principal)
CPT/HCPCS: 82306; 84100; 84165; 86335

== ENCOUNTER 2024-04-03 08:52 | Outpatient (AMB) | payer OTHER, SELFPAY ==
--- NOTE | 2024-04-03 09:21 | AM.OFFVISNUR ---
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 Allergies codeine Allergy (Severe, Verified 03/01/24 14:41) Vomiting/nausea levofloxacin [From Levaquin] Allergy (Severe, Verified 03/01/24 14:41) Unknown omeprazole [From Prilosec] Allergy (Severe, Verified 03/01/24 14:41) rash sulfamethoxazole [From Bactrim] Allergy (Severe, Verified 03/01/24 14:41) Unknown trimethoprim [From Bactrim] Allergy (Severe, Verified 03/01/24 14:41) Unknown erythromycin base Allergy (Mild, Verified 03/01/24 14:41) mild lansoprazole [From Prevacid] Allergy (Mild, Verified 03/01/24 14:41) rash Penicillins Allergy (Mild, Verified 03/01/24 14:41) rash Sulfa (Sulfonamide Antibiotics) Allergy (Mild, Verified 03/01/24 14:41) rash Office Meds cyanocobalamin (vitamin B-12) 1,000 mcg/mL injection solution Performing Provider: Khadijah Colon CNP [place] [facility] Administered by: Jesusita Maldonado RN on 04/03/24 09:21 Dose Route Admin Location Dispensed Lot Number Expiration Date [facility] Key [employer] 1,000 mcg IM Left Deltoid 1.0 mL [id number] 10/21/25 17694-880-32 [employer] Assessment & Plan Assessment & Plan Orders: Orders AMB Vitamin B12 Injection Patient Supplied Today E53.8 - Deficiency of other specified B group vitamins Medications: New cyanocobalamin (vitamin B-12) 1,000 mcg IM ONCE 1 mL 0RF E53.8 - Deficiency of other specified B group vitamins
== END 2024-04-03 09:13 | disposition home or self-care (01) ==
PROVIDERS: PCP Nurse Practitioner Family; Visit Provider Nurse Practitioner Family
DX: E53.8 Deficiency of other specified B group vitamins (principal)
CPT/HCPCS: J3420

== ENCOUNTER 2024-04-03 08:52 | Outpatient (REF) | payer OTHER, SELFPAY ==
[2024-04-03 18:47] LABS: Influenza A PCR NEGATIVE (Negative); Influenza B PCR NEGATIVE (Negative); Resp Syncy Virus RNA Qual PCR NEGATIVE (Negative); SARS COV2 PCR INHOUSE NEGATIVE (Negative)
== END 2024-04-03 08:53 | disposition home or self-care (01) ==
LOC: HO.LNP 08:52
PROVIDERS: PCP Nurse Practitioner Family; Visit Provider Nurse Practitioner Family
DX: J02.8 Acute pharyngitis due to other specified organisms (principal); B97.89 Other viral agents as the cause of diseases classified elsewhere; R52 Pain, unspecified; F41.8 Other specified anxiety disorders
CPT/HCPCS: 0241U; 87880; 96127; 96372; 99212

== ENCOUNTER 2024-04-03 13:47 | Outpatient (AMB) | payer OTHER, SELFPAY ==
--- NOTE | 2024-04-03 14:00 | MHC.PC.OV ---
Vital Signs 04/03/24 14:02 04/03/24 14:24 Height 5 ft 3 in Weight 135 lb 8 oz BMI 24.0 BP 142/82 H 136/70 Blood Pressure Location Lt brachial Rt brachial Position Sitting Sitting Respiration 16 Pulse 91 Pulse Source Pulse Oximeter Temp 97.5 F Temp Source Temporal Artery Scan Pulse Oximetry (%) 96 Oxygen Delivery Method Room Air Intake Visit Reasons: Sore throat/low grade fever [employer] Required: No Is last menstrual period known: No Post menopausal: No Patient : No Allergies codeine Allergy (Severe, Verified 04/03/24 14:10) Vomiting/nausea levofloxacin [From Levaquin] Allergy (Severe, Verified 04/03/24 14:10) Unknown omeprazole [From Prilosec] Allergy (Severe, Verified 04/03/24 14:10) rash sulfamethoxazole [From Bactrim] Allergy (Severe, Verified 04/03/24 14:10) Unknown trimethoprim [From Bactrim] Allergy (Severe, Verified 04/03/24 14:10) Unknown erythromycin base Allergy (Mild, Verified 04/03/24 14:10) mild lansoprazole [From Prevacid] Allergy (Mild, Verified 04/03/24 14:10) rash Penicillins Allergy (Mild, Verified 04/03/24 14:10) rash Sulfa (Sulfonamide Antibiotics) Allergy (Mild, Verified 04/03/24 14:10) rash Medication List - Last Reconciled 04/03/24 by Khadijah Colon, STEFANY betamethasone dipropionate 0.05% 1 appl topical BID PRN bupropion HCl XL 150 mg PO QAM buspirone 10 mg PO TID 30 days calcium carbonate (Calcium 600) PO .twice clopidogrel 75 mg PO DAILY cyanocobalamin (vitamin B-12) 1,000 mcg IM Q4W 4 weeks dicyclomine 10 mg PO TID duloxetine 60 mg PO DAILY famotidine (Pepcid) 40 mg PO BID PRN levothyroxine 75 mcg PO DAILY magnesium citrate (SlowMag Muscle Recovery) mg PO rabeprazole (AcipHex) 20 mg PO BID ropinirole one in the am and noon then 2 at hs orally; trazodone 50 mg PO BEDTIME PRN 30 days Tobacco use date assessed: 04/03/24 Fall risk assessment: 1 Fall in past year Last assessed Fall Risk: 04/03/24 Dental Screening Dental Screen Date: 04/03/24 Did you have a dental visit in the last 12 months?: No Did you have a dental problem in the last 6 months where you did not have access to dental care?: No Was dental information given to patient?: No HPI HPI Comments History of Present Illness Details 74-year-old female presents with complaints of a mild sore throat and generalized body aches. Her symptoms started upon waking up this morning. She had a temp of 99.1 this morning. She denies sick contacts. No cough, running nose, or sneezing. She notes controlled anxiety and depressive symptoms. However, She has been experiencing significant family stressors in the past 2 weeks. Her son family issues are affecting her. She takes her medications as prescribed and sees a therapist weekly. She reports passive SI and attributes it to feeling responsible for the childhood trauma her son experienced. She blames herself for being oblivious. She found therapy very helpful. She denies active SI, homicidal ideation, or plan of committing suicide. [facility] Medical History (Updated 04/03/24 @ 14:43 by Khadijah Colon CNP) Radial scar of right breast Kidney stones Stroke Crohn disease Depression Surgical History History of cholecystectomy H/O hernia repair History of bowel resection H/O: hysterectomy Family History Other Mental health disorder Social History Household Members: Children Housing: Other (mobile home) Alcohol intake: never Patient Tobacco Use Status: Former Tobacco user Years Smoked: 10 years e-Cigarette/Vaping Use: Never Used Second Hand Smoke Exposure: No service: No Current occupational status: retired Current occupational exposures/hazards: No Cognitive needs: No Hearing needs: No Vision needs: No Questionnaire PHQ-9 Over the last 2 weeks, how often have you been bothered by any of the following problems? 1. Little interest or pleasure in doing things: several days 2. Feeling down, depressed, or hopeless: several days 3. Trouble falling or staying asleep, or sleeping too much: several days 4. Feeling tired or having little energy: several days 5. Poor appetite or overeating: several days 6. Feeling bad about yourself - or that you are a failure or have let yourself or your family down: more than half the days 7. Trouble concentrating on things, such as reading the newspaper or watching television: several days 8. Moving or speaking so slowly that other people could have noticed. Or the opposite - being so fidgety or restless that you have been moving around a lot more than usual: not at all 9. Thoughts that you would be better off or of hurting yourself in some way: several days Total score: 9 Depression Screening Interpretation: Positive Depression Screening Follow-up: Existing condition and In treatment Depression Screening Done: Yes Source: Developed by Drs. Iban Mcnamara, Martha Kim, Nick Acosta and colleagues, with an educational rosa maria from [employer]. Thrive Questionnaire Date Thrive assessed: 06/15/23 I am a: Patient What is your living situation today?: I have a steady place to live Within the past 12 months, did the food you bought not last and you didn't have the money to get more?: Never true Within the past 12 months, did you worry whether your food would run out before you got money to buy more?: Never true Do you have trouble paying for medicines?: No Do you have trouble getting transportation to medical appointments?: No Do you have trouble paying your heating and electricity bill?: No Do you have trouble taking care of your child, family member or friend?: No Do you have trouble with day-to-day activities such as bathing, preparing meals, shopping, managing finances, etc.?: No Are you currently unemployed and looking for a job?: No Are you interested in more education?: No Please select the resources that you would like help with: None Currently or been in a relationship where the following occur: Controlled Financially and Controlled Emotionally THRIVE Score: 2 AUDIT C Alcohol Use Questionnaire (AUDIT-C) 1. How often do you have a drink containing alcohol?: Never Total Score: 0 VICKIE-7 AMB Questionnaire VICKIE-7 Date VICKIE - 7 assessed: 02/04/24 Feeling nervous, anxious, or on edge: 1 = Several days Not being able to stop or control worryin = Several days Worrying too much about different things: 0 = Not at all Trouble relaxin = Several days Being so restless that it is hard to sit still: 0 = Not at all Becoming easily annoyed or irritable: 1 = Several days Feeling afraid as if something awful might happen: 0 = Not at all Total VICKIE-7 score (0-4 normal; 5-9 mild; 10-14 moderate; 15-21 severe): 4 Source: Developed by Drs. Iban Mcnamara, Martha Kim, Nick Acosta and colleagues, with an educational rosa maria from [employer]. Review of Systems Const Details: Const Denies chills, Denies fatigue, Denies fever(s), Denies headache(s) and Denies weakness ENT Reports as per HPI Card Denies chest pain, Denies lightheadedness, Denies dyspnea and Denies other (Palpitations) Resp Denies cough, Denies dyspnea, Denies wheezing and Denies other ( shortness of breath) GI Denies abdominal pain, Denies melena, Denies hematochezia, Denies change in bowel habits, Denies dyspepsia and Denies nausea Denies hematuria and Denies dysuria Musc Denies abnormal gait, Denies myalgias, Denies arthralgias, Denies numbness and Denies tingling Skin/Breast Denies rash, Denies unusual bruising and Denies wounds Neuro Denies abnormal gait, Denies dizziness, Denies headache(s), Denies memory loss, Denies numbness, Denies Sensory deficit (Neuro), Denies tingling and Denies weakness Psych Denies anxiety, Denies depression, Denies memory loss Endo Denies cold intolerance, Denies fatigue, Denies heat intolerance, Denies polydipsia and Denies polyuria Aller/Immun Denies wheezing Physical exam (Primary Care) Vital Signs: Last Vital Signs Temp 97.5 F 04/03/24 14:02 Pulse 91 04/03/24 14:02 Resp 16 04/03/24 14:02 BP 136/70 04/03/24 14:24 Pulse Ox 96 04/03/24 14:02 Oxygen Delivery Method Room Air 04/03/24 14:02 BMI result Body Mass Index 24.0 Tobacco/Smoking Status: Tobacco use Status Tobacco use date assessed 04/03/24 04/03/24 14:08 Patient Tobacco Use Status Former Tobacco user 04/03/24 14:08 e-Cigarette/Vaping Use Never Used 04/03/24 14:08 PHQ-9: PHQ-9 Score PHQ-9: Total score 9 04/03/24 15:03 Depression Screening Interpretation: Positive Depression Screening Follow-up: Existing condition and In treatment Thrive Assessment: Date of Thrive Assessment Date Thrive assessed 06/15/23 04/03/24 14:08 Currently or been in a relationship where the following occur: Controlled Financially and Controlled Emotionally Const Other: General: no acute distress and well developed Nutritional Appearance: well nourished Orientation/consciousness: patient oriented x3 HENMT Head is normocephalic Bilateral ear canal and TM are normal Nasal turbinates and oropharynx are pink and moist Sinuses are nontender with palpation No auricular or cervical lymphadenopathy Eyes General: appearance normal, both eyes and all related structures Pupils: Equal, round and reactive pupils present EOM: EOMs intact bilaterally Resp Effort & Inspection: normal respiratory effort Auscultation: clear to auscultation bilaterally Cardio Rate: regular rate Rhythm: regular rhythm Heart sounds: S1 normal heart sound present, S2 normal heart sound present, no gallops, no murmurs and no rubs GI Palpation (GI): No Abdominal aortic bruit present, Soft to palpation, nontender, No hepatosplenomegaly present and No Rebound tenderness present Auscultation: normal bowel sounds General: Yes no CVA tenderness Back/Spine/Pelvis Back: no CVA tenderness Extrem General: Yes normal to inspection, No edema and No calf tenderness Skin General: warm and dry. Normal skin color. Normal skin turgor Neuro General: patient oriented x3, gait normal and no focal neuro deficit Cranial nerves: Yes Equal, round and reactive pupils present Cognition (Neuro): normal cognition Gait exam (Neuro): Normal gait present Sensory Exam: No Sensory deficit (Neuro) Psych Appearance: grossly normal Affect: normal affect Attitude: cooperative Thought process: Normal thought process present Results AMB Rapid Strep AMB Rapid Strep Negative Last Edit by Mary Orellana on 04/03/24 15:43 Results Reviewed Results Reviewed: Laboratory Last Values Strep Scn Rapid Clinic Negative 04/03/24 15:03 Coding Level of Care Code Est Pt Level 4 (17180) Diagnoses Depression with anxiety F41.8 Sore throat (viral) J02.8; B97.89 Generalized body aches R52 Laboratory tests ordered as part of a complete physical exam (CPE) Z00.00 Assessment & Plan Assessment & Plan (1) Depression with anxiety: Code(s): F41.8 - Other specified anxiety disorders Category: Medical Plan: Reports controlled anxiety and depressive symptoms. However, she has been under significant family related stressors in the past 2 weeks. She has passive SI. No active SI. No HI. No suicide plan PHQ-9 score reveals mild depression. VICKIE-7 score is normal Continue current treatment regimen Routine exercise encouraged Continue follow-up with therapist as planned Encouraged to get routine lab work done a few days before next visit Return in 3 months for an extended physical exam, anxiety, and depression or sooner with worsening or new symptoms Verbalized understanding and agreed with the treatment plan (2) Sore throat (viral): Code(s): J02.8 - Acute pharyngitis due to other specified organisms; B97.89 - Other viral agents as the cause of diseases classified elsewhere Category: Medical Plan: Likely viral illness though possibly allergies No exam evidence of bacterial infection Rapid strep test is negative Viral illness There is no antibiotic medication for viruses.? They must run their course.? Most average 5-7 days but 7-10 days is not uncommon and up to 14 days is still possible.? A cough is often the last symptom to resolve and this can last for weeks in some cases. Rest Hydrate well -? Drink plenty of fluids.? Especially water. Tylenol or ibuprofen for muscle aches, headache, fever/discomfort Cannot rule out COVID-19/RSV/Flu infection Nasal swab acquired and will be sent to the lab Return for new or worsening symptoms Verbalized understanding and agreed with treatment plan. (3) Generalized body aches: Code(s): R52 - Pain, unspecified Category: Medical Plan: Plan as above (4) Laboratory tests ordered as part of a complete physical exam (CPE): Code(s): Z00.00 - Encounter for general adult medical examination without abnormal findings Category: Medical Plan: Fasting labs ordered as part of a complete physical exam. Advised to fast for at least 10 hours before getting labs drawn. May drink water Verbalized understanding and agreed with treatment plan. Orders: Orders Complete Blood Count Auto Diff 04/03/24 Z00.00 - Encounter for general adult medical examination without abnormal findings Comprehensive [place]. Panel Fast 04/03/24 Z00.00 - Encounter for general adult medical examination without abnormal findings TSH reflex Free T4 04/03/24 Z00.00 - Encounter for general adult medical examination without abnormal findings Microalbumin, Random (w Creat) 04/03/24 Z00.00 - Encounter for general adult medical examination without abnormal findings AMB Rapid Strep Screen 04/03/24 Z13.9 - Encounter for screening, unspecified SARS-CoV2/FLU/RSV 04/03/24 B97.89 - Other viral agents as the cause of diseases classified elsewhere, J02.8 - Acute pharyngitis due to other specified organisms, R52 - Pain, unspecified Lipid Panel 04/03/24 Z00.00 - Encounter for general adult medical examination without abnormal findings UA CC w/rflx Micro + Cult 04/03/24 Z00.00 - Encounter for general adult medical examination without abnormal findings
[2024-04-03 14:02] VITALS: BP 142/82; PULSE 91; RESP 16; TEMP 36.4; O2SAT 96; BMI 24.0
[2024-04-03 14:24] VITALS: BP 136/70
== END 2024-04-03 15:06 | disposition home or self-care (01) ==
PROVIDERS: PCP Nurse Practitioner Family; Visit Provider Nurse Practitioner Family
DX: F41.8 Other specified anxiety disorders (principal); J02.8 Acute pharyngitis due to other specified organisms; B97.89 Other viral agents as the cause of diseases classified elsewhere; R52 Pain, unspecified; Z00.00 Encounter for general adult medical examination without abnormal findings

== ENCOUNTER 2024-04-06 10:48 | Outpatient (REF) | payer OTHER, SELFPAY ==
--- NOTE | ~2024-04-06 | XR_ITS ---
EXAMINATION: XR ABDOMEN KUB CLINICAL INDICATION: Screening for MRI COMPARISON: None available. TECHNIQUE: AP view of the abdomen. FINDINGS: There is nonspecific bowel gas pattern with large amount of feces in the colon. The postsurgical changes with a surgical reynaldo and status post cholecystectomy. Unresolved tablet visualized in the duodenum XR/XR pre mri screening IMPRESSION: Nonspecific bowel gas pattern postsurgical reynaldo and sutures on the Electronically signed by: Alpa Cisneros MD 04/06/2024 01:42 PM EST
== END 2024-04-06 10:49 | disposition home or self-care (01) ==
LOC: HO.XRAY 10:48
PROVIDERS: PCP Nurse Practitioner Family; Visit Provider Radiology Diagnostic Radiology
DX: Z13.89 Encounter for screening for other disorder (principal)

== ENCOUNTER → 2024-06-13 09:59 | Outpatient (BNV) | payer MEDICARE, SELFPAY | PROVIDERS: Visit Provider Internal Medicine | DX: N64.89 Other specified disorders of breast (principal) | CPT/HCPCS: 77049 ==

== ENCOUNTER 2024-06-13 10:34 | Outpatient (REF) | payer MEDICARE, SELFPAY ==
[2024-06-13] MEDS: gadobutroL 7.5 ML VIAL 6 ML IVPUSH (11:24)
--- OUTSIDE RECORDS SUMMARY | 2024-06-13 11:53 | XMS_ITS | Clinical Summary ---
Author Organization [facility] Address [address] [place] [address] Care Team Providers Care Police Commissioner Name Role Phone Nicolasa Soto MD Primary Care Provider [phone] Medications Medication Sig Dispensed Refills Start Date End Date Status buPROPion (WELLBUTRIN XL) 150 MG 24 hr tablet TAKE 1 TABLET BY MOUTH ONCE DAILY 2 05/24/2017 Active clopidogrel (PLAVIX) 75 MG tablet 0 06/09/2017 Active dicyclomine (BENTYL) 10 MG capsule 0 06/09/2017 Active duloxetine (CYMBALTA) DR capsule 60 mg 0 06/09/2017 Active levothyroxine (SYNTHROID, LEVOXYL) tablet 75 mcg TAKE 1 TABLET BY MOUTH ONCE DAILY 5 05/24/2017 Active oxybutynin (DITROPAN) 5 MG tablet TAKE 1 TABLET BY MOUTH TWICE DAILY 2 05/24/2017 Active potassium chloride ER (K-DUR,KLOR-CON) tablet 10 mEq Take 30 mEq by mouth 2 (two) times a day. 5 05/24/2017 Active RABEprazole (ACIPHEX) 20 MG tablet TAKE 1 TABLET BY MOUTH TWICE DAILY 11 05/24/2017 Active rOPINIRole (REQUIP) 1 MG tablet Take 1 mg by mouth 3 (three) times a day as needed. 4 05/24/2017 Active Family History Medical History Relation Name Comments Cancer Brother Cancer Father Cancer Mother Relation Name Status Comments Brother Father Mother Social History Tobacco Use Types Packs/Day Years Used Date Smoking Tobacco: Former Cigarettes 0.5 Smokeless Tobacco: Never Alcohol Use Standard Drinks/Week Comments No 0 (1 standard drink = 0.6 oz pur e alcohol) Sex and Gender Information Value Date Recorded Sex Assigned at Not on file Gender Identity Not on file Sexual Orientation Not on file Job Start Date Occupation Industry Not on file Not on file Not on file Plan of Treatment Health Maintenance Due Date Last Done Comments Hepatitis C Screening 1950 COVID-19 Vaccine (#1) 1949 Depression Screening 1961 Preventative Health Evaluation 1967 DTap / Tdap / Td (1 - Tdap) 1968 Colon Cancer Screening (Colonoscopy) 1994 Shingrix-Zoster Vaccine (1 of 2) 1999 Fall Risk Assessment 2014 Osteoporosis Screening (DEXA Scan) 2014 Pneumococcal Vaccine (1 of 1 - PCV) 2014 Influenza Vaccine (#1) 2024 RSV Adult > 60+ Yrs or Pregn ant (1 - 1-dose 75+ series) 2024 Hepatitis B Vaccines Aged Out No long er eligible based on patient's age to complete this topic RSV Ped < 20 months Aged Out No longe r eligible based on patient's age to complete this topic Care Teams Police Commissioner Relationship Specialty Start Date End Date Nicolasa Soto MD [address] [place] [address] PCP - General Internal Medicine 05/26/17
--- OUTSIDE RECORDS SUMMARY | 2024-06-13 11:53 | XMS_ITS | Clinical Summary ---
Author Organization [facility] Address [address] [place] [address] Care Team Providers Care Aligner Barrel And Receiver Name Role Phone Nicolasa Chairez Primary Care Provider [phone] Surgical History Surgery Date Site/Laterality Comments OTHER SURGICAL HISTORY N/A PROCEDURE: GA LAPS SURG CHOLECYSTECTOMY W/CHOLANGIOGRAPHY CHOLECYSTECTOMY PROCEDURE: GA LAPAROSCOPY SURG CHOLECYSTECTOMY BOWEL RESECTION PROCEDURE: HISTORICAL BOWEL RESECTION HYSTERECTOMY PROCEDURE: HISTORICAL HYSTERECTOMY OTHER SURGICAL HISTORY PROCEDURE: GA FISSURECTOMY INCL SPHINCTEROTOMY WHEN PERFORMED OTHER SURGICAL HISTORY PROCEDURE: GA EXC CYST/ABERRANT BREAST TISSUE OPEN 1/> LESION Medical History Medical History Date Comments 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/HCC) 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) Acquired hemolytic anemia (CMS/HCC) DX:Acquired hemolytic anemia (HCC) CVA (cerebral vascular accident) (CMS/HCC) DX:CVA (cerebral vascular accident) (HCC) History of stomach ulcers DX:His tory of stomach ulcers Disorder of thyroid DX:Disorder of thyroid Osteoporosis DX:Osteoporosis Social History Tobacco Use Types Packs/Day Years Used Date Smoking Tobacco: Never Smokeless Tobacco: Never Alcohol Use Standard Drinks/Week Comments Never 0 (1 standard drink = 0.6 oz pur e alcohol) Sex and Gender Information Value Date Recorded Sex Assigned at Not on file Gender Identity Not on file Sexual Orientation Not on file Obstetrics History Last Filed Vital Signs Vital Sign Reading Time Taken Comments Blood Pressure 118/78 11/27/2021 3:20 PM EDT Sitting L Arm Pulse 72 11/27/2021 3:20 PM EDT Temperature - - Respiratory Rate - - Oxygen Saturation - - Inhaled Oxygen Concentration - - Weight 60.1 kg (132 lb 9.6 oz) 11/27/2021 3:20 PM EDT Height 160 cm (5' 3 ) 11/27/2021 3:20 PM EDT Body Mass Index 23.49 11/27/2021 3:20 PM EDT Plan of Treatment Health Maintenance Due Date Last Done Comments DTaP,Tdap,and Td Vaccines (1 - Tdap) 1968 Zoster Vaccines (1 of 2) 1999 Pneumococcal Vaccine: 65+ Ye ars (1 of 1 - PCV) 2014 Colorectal Cancer Screening: Colonoscopy 04/25/2022 Depression Screening 04/25/2022 Falls Risk Assessment 04/25/2022 Hepatitis C Screening 04/25/2022 Social Influencers of Health Screening 04/25/2022 COVID-19 Vaccine (1 - 2023-2 5 season) 2024 Influenza Vaccine (#1) 2024 RSV Immunization Patients 60 + Years Old (1 - 1-dose 75+ series) 2024 Osteoporosis Screening (Bone Density Screening) 09/03/2027 09/02/2017 Breast Cancer Screening Discontinued 09/10/2017 HIB Vaccines Aged Out No longer eligi ble based on patient's age to complete this topic HPV Vaccines Aged Out No longer eligi ble based on patient's age to complete this topic Hepatitis A Vaccines Aged Out No long er eligible based on patient's age to complete this topic Hepatitis B Vaccines Aged Out No long er eligible based on patient's age to complete this topic IPV Vaccines Aged Out No longer eligi ble based on patient's age to complete this topic MMR Vaccines Aged Out No longer eligi ble based on patient's age to complete this topic Meningococcal ACWY Vaccine Aged Out N o longer eligible based on patient's age to complete this topic RSV Immunization Patients Un wagner 20 months Aged Out No longer eligible b ased on patient's age to complete this topic Varicella Vaccines Aged Out No longer eligible based on patient's age to complete this topic Procedures Procedure Name Priority Date/Time Associated Diagnosis Comments [facility] SCREENING DIGITAL Routine 09/10/2017 4:30 PM EDT Encounter for screening mammogram for malignant neoplasm of breast [facility] DEXA AXIAL SKELETON Routine 09/02/2017 1:58 PM EDT Other specified disorders of bone density and structure, unspecified site from Last 3 Months or Most Recently Relevant to Health Maintenance Results * [facility] SCREENING DIGITAL (09/10/2017 4:30 PM EDT) Anatomical Region Laterality Modality Mammography 09/10/2017 1:23 PM EDT Narrative 09/10/2017 4:30 PM EDT [facility] Diagnostic Imaging Department [address] [place] [address] Patient: ??KEVINRONA Laura ?/Age/Sex: 1950 - 67 - F Unit#: ??[id number] ? Location/Status: ??SPDIMAM/REG CLI ? Mnemonic/Ordering Site: ??DIGSC/SPMAM Ordering Physician: ??NICOLASA CHAIREZ MD [facility] Screening Digital - 09/10/17 - 1344 EXAM: [facility] Screening Digital EXAM DATE AND TIME: 09/10/2017 1:44 PM HISTORY: Previous benign bilateral breast procedures, the most recent in 2006. First degree family history of breast cancer (mother). IMAGING: Standard CC/MLO views and MLO tomosynthesis. COMPARISON(S): Including 17 Oct 2015, 05 April 2013 and 24 Sep 2006. TISSUE DENSITY: B: There are scattered areas of fibroglandular density. FINDINGS: Benign-appearing microcalcifications are noted in both breasts. No new irregular mass, grouped suspicious microcalcifications, area of abnormal skin thickening or lymphadenopathy. IMPRESSION: No findings suspicious for malignancy. Please note, a negative imaging evaluation should never overrule a strongly suspicious finding on physical exam. BI-RADS: Category 2: Benign BILATERAL RECOMMENDATION(S): 1: Routine screening mammogram BILATERAL in 1 year. COMMENTS: None. [id number], 88723, 3342F, 7025F Dictating Physician: ??DONG MESA MD Electronically Signed by: ??DONG MESA MD Dic Date/Time: ??09/10/17 1621 Sign date/Time: ??09/10/17 1630 Procedure Note Dong Mesa MD - 05/12/2022 [facility] Diagnostic Imaging Department [address] [place] [address] Patient: RONA BROWN /Age/Sex: 1950 - 67 - F Unit#: [id number] Location/Status: [facility] Mnemonic/Ordering Site: [facility] Ordering Physician: NICOLASA CHAIREZ MD [facility] Screening Digital - 09/10/17 - 1344 EXAM: [facility] Screening Digital EXAM DATE AND TIME: 09/10/2017 1:44 PM HISTORY: Previous benign bilateral breast procedures, the most recent [id number]. First degree family history of breast cancer (mother). IMAGING: Standard CC/MLO views and MLO tomosynthesis. COMPARISON(S): Including 17 Oct 2015, 05 April 2013 and 24 Sep 2006. TISSUE DENSITY: B: There are scattered areas of fibroglandular density. FINDINGS: Benign-appearing microcalcifications are noted in both breasts. No new irregular mass, grouped suspicious microcalcifications, area of abnormalskin thickening or lymphadenopathy. IMPRESSION: No findings suspicious for malignancy. Please note, a negative imaging evaluation should never overrule astrongly suspicious finding on physical exam. BI-RADS: Category 2: Benign BILATERAL RECOMMENDATION(S): 1: Routine screening mammogram BILATERAL in 1 year. COMMENTS: None. 76222, 17362, 9932F, 3101F Dictating Physician: DONG MESA MD Electronically Signed by: DONG MESA MD Dic Date/Time: 09/10/17 1621 Sign date/Time: 09/10/17 1630 Nicolasa Chairez IMG BI PROCEDURES * [facility] DEXA AXIAL SKELETON (09/02/2017 1:58 PM EDT) Anatomical Region Laterality Modality Mammography 09/02/2017 12:5 4 PM EDT Narrative 09/02/2017 1:58 PM EDT [facility] Diagnostic Imaging Department [address] [place] [address] Patient: ??RONA BROWN ?/Age/Sex: 1950 - 67 - F Unit#: ??[id number] ? Location/Status: ??SPDIMAM/REG CLI ? Mnemonic/Ordering Site: ??MAMDEXAAX/SPMAM Ordering Physician: ??NICOLASA CHAIREZ MD [facility] Dexa Axial Skeleton - 09/02/17 - 1327 HISTORY: ??The patient is a 67-year-old postmenopausal female with clinical concern for metabolic bone disease. FINDINGS: ??Dual energy x-ray absorptiometry of the lumbar spine and femurs is performed. The mean bone mineral density at L1-L4 is 0.901 gm/cm2 which is 76% of that of young normals and 94% of that of age matched controls. This yields a T-score of -2.3 and a Z-score of -0.4 which is diagnostic of osteopenia. The mean bone mineral density of the femurs bilaterally is 0.721 gm/cm2 which is 72% of that of young normals and 89% of that of age matched controls. ??This yields a T-score of -2.3 and a Z-score of -0.7 which is diagnostic of osteopenia. IMPRESSION: 1. Osteopenia. ??There has been a decrease of 8.3% in bone mineral density in the lumbar spine since the prior examination of 01/22/2009. ??There has been a decrease of 4.3% in bone mineral density in the right femur and a decrease of 23.2% in bone mineral density in the left femur. 2. FRAX analysis yields a 10-year probability of major osteoporotic fracture of 12.9% and a 10-year probability of hip fracture of 2.8%. Code 23806 Dictating Physician: ??NAHUN VILLALOBOS MD Electronically Signed by: ??NAHUN VILLALOBOS MD Dic Date/Time: ??09/02/17 1356 Sign date/Time: ??09/02/17 1358 Procedure Note Nahun Villalobos MD - 05/12/2022 [facility] Diagnostic Imaging Department [address] [place] [address] Patient: RONA BROWN /Age/Sex: 1950 - 67 - F Unit#: [id number] Location/Status: SPDIMAM/REG CLI [facility] Ordering Physician: NICOLASA CHAIREZ MD [facility] Dexa Axial Skeleton - 09/02/17 - 1327 HISTORY: The patient is a 67-year-old postmenopausal female withclinical concern for metabolic bone disease. FINDINGS: Dual energy x-ray absorptiometry of the lumbar spine and femursis performed. The mean bone mineral density at L1-L4 is 0.901 gm/cm2 which is76% of that of young normals and 94% of that of age matched controls. Thisyields a T-score of -2.3 and a Z-score of -0.4 which is diagnostic of osteopenia. The mean bone mineral density of the femurs bilaterally is 0.721 gm/ih6ekloe is 72% of that of young normals and 89% of that of age matched controls.This yields a T-score of -2.3 and a Z-score of -0.7 which is diagnostic of osteopenia. IMPRESSION: 1. Osteopenia. There has been a decrease of 8.3% in bone mineral densityin the lumbar spine since the prior examination of 01/22/2009. There has jenn decrease of 4.3% in bone mineral density in the right femur and a decreaseof 23.2% in bone mineral density in the left femur. 2. FRAX analysis yields a 10-year probability of major osteoporoticfracture of 12.9% and a 10-year probability of hip fracture of 2.8%. Code 35098 Dictating Physician: NAHUN VILLALOBOS MD Electronically Signed by: NAHUN VILLALOBOS MD Dic Date/Time: 09/02/17 1356 Sign date/Time: 09/02/17 1358 Nicolasa Chairez IMG BI PROCEDURES from Last 3 Months or Most Recently Relevant to Health Maintenance Care Teams Aligner Barrel And Receiver Relationship Specialty Start Date End Date Nicolasa Chairez [address] [facility] [address] [place], [place] PCP - General Internal Medicine 05/26/17
== END 2024-06-13 10:35 | disposition home or self-care (01) ==
LOC: HO.MRI 10:34
PROVIDERS: Visit Provider Surgery
DX: N64.89 Other specified disorders of breast (principal)
CPT/HCPCS: 77049; A9585

== ENCOUNTER → 2024-06-28 10:59 | Outpatient (BNVA) | payer MEDICARE, SELFPAY | PROVIDERS: PCP Nurse Practitioner Family; Visit Provider Surgery | DX: N64.89 Other specified disorders of breast (principal) | CPT/HCPCS: 99212 ==

== ENCOUNTER 2024-06-30 11:32 | Outpatient (REF) | payer MEDICARE, SELFPAY ==
[2024-06-30 12:30] LABS: Creatinine, mg/dL 117.96
[2024-06-30 12:33] LABS: Creatinine, 24Hr Urine 0.6 G/Day (1.0-2.0); Total Volume 24 Hour Urine 500 mL
--- OUTSIDE RECORDS SUMMARY | 2024-06-30 12:34 | XMS_ITS | Clinical Summary ---
Author Organization [facility] Address [address] [place] [address] Care Team Providers Care Email Marketing Processor Name Role Phone Nicolasa Soto MD Primary Care Provider [phone] Medications Medication Sig Dispensed Refills Start Date [...] age to complete this topic Care Teams Email Marketing Processor Relationship Specialty Start Date End Date Nicolasa Soto MD [address] [place] [address] PCP - General Internal Medicine 05/26/17
--- OUTSIDE RECORDS SUMMARY | 2024-06-30 12:34 | XMS_ITS | Clinical Summary ---
Author Organization [facility] Address [address] [place] [address] Care Team Providers Care Fire Captain Name Role Phone Nicolasa Chairez Primary Care Provider Surgical History Surgery Date Site/Laterality Comments OTHER SURGICAL HISTORY N/A PROCEDURE: GA LAPS SURG CHOLECYSTECTOMY W/CHOLANGIOGRAPHY CHOLECYSTECTOMY PROCEDURE: GA LAPAROSCOPY SURG CHOLECYSTECTOMY BOWEL RESECTION PROCEDURE: HISTORICAL BOWEL RESECTION HYSTERECTOMY PROCEDURE: HISTORICAL HYSTERECTOMY OTHER SURGICAL HISTORY PROCEDURE: GA FISSURECTOMY INCL SPHINCTEROTOMY WHEN PERFORMED OTHER SURGICAL HISTORY PROCEDURE: GA EXC CYST/ABERRANT BREAST TISSUE OPEN 1/> LESION Medical History Medical History Date Comments 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/HCC) 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 (HCC) Acquired hemolytic anemia (CMS/HCC) [...] Procedure Name Priority Date/Time Associated Diagnosis Comments [facility] SCREENING DIGITAL Routine 09/10/2017 4:30 PM EDT Encounter for screening mammogram for malignant neoplasm of breast [facility] DEXA AXIAL SKELETON Routine 09/02/2017 1:58 PM EDT Other specified disorders of bone density and structure, unspecified site from Last 3 Months or Most Recently Relevant to Health Maintenance Results * [facility] SCREENING DIGITAL (09/10/2017 4:30 PM EDT) Anatomical Region Laterality Modality Mammography 09/10/2017 1:23 PM EDT Narrative 09/10/2017 4:30 PM EDT [facility] Diagnostic Imaging Department [address] [place] [address] Patient: ??KEVINRONA Laura ?/Age/Sex: 1950 - 67 - F Unit#: ??[id number] ? Location/Status: ??SPDIMAM/REG CLI ? Mnemonic/Ordering Site: ??DIGSC/SPMAM Ordering Physician: ??NICOLASA CHAIREZ MD [facility] Screening Digital - 09/10/17 - 1344 EXAM: [facility] Screening Digital EXAM DATE AND TIME: 09/10/2017 [...] mammogram BILATERAL in 1 year. COMMENTS: None. 40211, 32121, 3342F, 7025F Dictating Physician: ??DONG MESA MD Electronically Signed by: ??DONG MESA MD Dic Date/Time: ??09/10/17 1621 Sign date/Time: ??09/10/17 1630 Procedure Note Dong Mesa MD - 05/12/2022 [facility] Diagnostic Imaging Department [address] [place] [address] Patient: RONA BROWN /Age/Sex: 1950 - 67 - F Unit#: [id number] Location/Status: [facility] Mnemonic/Ordering Site: [facility] Ordering Physician: NICOLASA CHAIREZ MD [facility] Screening Digital - 09/10/17 - 1344 EXAM: [facility] Screening Digital EXAM DATE AND TIME: 09/10/2017 1:44 PM HISTORY: Previous benign bilateral breast procedures, the most recent [id number]. First degree family history of breast cancer [...] mammogram BILATERAL in 1 year. COMMENTS: None. 79545, 14437, 3382F, 7036F Dictating Physician: DONG MESA MD Electronically Signed by: DONG MESA MD Dic Date/Time: 09/10/17 1621 Sign date/Time: 09/10/17 1630 Nicolasa Chairez IMG BI PROCEDURES * [facility] DEXA AXIAL SKELETON (09/02/2017 1:58 PM EDT) Anatomical Region Laterality Modality Mammography 09/02/2017 12:5 4 PM EDT Narrative 09/02/2017 1:58 PM EDT [facility] Diagnostic Imaging Department [address] [place] [address] Patient: ??RONA BROWN ?/Age/Sex: 1950 - 67 - F Unit#: ??[id number] ? Location/Status: ??SPDIMAM/REG CLI ? Mnemonic/Ordering Site: [...] probability of hip fracture of 2.8%. Code 22298 Dictating Physician: ??NAHUN VILLALOBOS MD Electronically Signed by: ??NAHUN VILLALOBOS MD Dic Date/Time: ??09/02/17 1356 Sign date/Time: ??09/02/17 1358 Procedure Note Nahun Villalobos MD - 05/12/2022 [facility] Diagnostic Imaging Department [address] [place] [address] Patient: RONA BROWN /Age/Sex: 1950 - 67 - F Unit#: [id number] Location/Status: SPDIMAM/REG CLI [facility] Ordering Physician: NICOLASA CHAIREZ MD [facility] Dexa Axial Skeleton - 09/02/17 - 1327 [...] density of the femurs bilaterally is 0.721 gm/fa2vfroy is 72% of that of young normals [...] probability of hip fracture of 2.8%. Code 63003 Dictating Physician: NAHUN VILLALOBOS MD Electronically Signed by: NAHUN VILLALOBOS MD Dic Date/Time: 09/02/17 1356 Sign date/Time: 09/02/17 1358 Nicolasa Chairez IMG BI PROCEDURES from Last 3 Months or Most Recently Relevant to Health Maintenance Care Teams Fire Captain Relationship Specialty Start Date End Date Nicolasa Chairez [address] [facility] [address] [place], [place] PCP - General Internal Medicine 05/26/17
[2024-07-01 17:53] LABS: Calcium, 24 Hr Urine 39 mg/24 h; Calcium/Creatinine Ratio 70 mg/g creat (30-275); Creatinine 24Hr Urine 0.56 g/24 h (0.50-2.15)
== END 2024-06-30 11:33 | disposition home or self-care (01) ==
LOC: HO.LNP 11:32
PROVIDERS: Visit Provider Internal Medicine Endocrinology, Diabetes & Metabolism
DX: M81.0 Age-related osteoporosis without current pathological fracture (principal)
CPT/HCPCS: 82340; 82570

== ENCOUNTER → 2024-07-03 08:30 | Outpatient (BNV) | payer MEDICARE, SELFPAY | PROVIDERS: PCP Nurse Practitioner Family; Visit Provider Internal Medicine | DX: R92.8 Other abnormal and inconclusive findings on diagnostic imaging of breast (principal) | CPT/HCPCS: 76642 ==

== ENCOUNTER 2024-07-03 08:35 | Outpatient (REF) | payer MEDICARE, SELFPAY ==
--- NOTE | ~2024-07-03 | US_ITS ---
EXAMINATION: US DIAGNOSTIC ULTRASOUND BREAST, RIGHT CLINICAL INFORMATION: MRI directed ultrasound in the right axilla for question prominent lymph node.. COMPARISON: Comparison is made with relevant prior imaging. TECHNIQUE: Ultrasound of the breast is performed with real-time fernandez scale imaging and color Doppler. FINDINGS: Targeted color Doppler ultrasound scanning in the right axilla demonstrates 2 normal-appearing axillary lymph nodes. Otherwise there is normal axillary tissue. There is no sonographic abnormality. Results are discussed with the patient at time of visit. US/US breast RT limited mamm only IMPRESSION: Normal right axillary lymph nodes. ASSESSMENT: BI-RADS 1: Negative RECOMMENDATION: Routine annual mammography screening. This patient's information was entered into a reminder system with a target due date for their next mammogram. Electronically signed by: Joanne Pierson DO 07/03/2024 09:15 AM AILYN
--- OUTSIDE RECORDS SUMMARY | 2024-07-03 08:46 | XMS_ITS | Clinical Summary ---
Author Organization [facility] Address [address] [place] [address] Care Team Providers Care Purchasing Officer Name Role Phone Nicolasa Soto MD Primary Care Provider [phone] Medications Medication Sig Dispensed Refills Start Date [...] age to complete this topic Care Teams Purchasing Officer Relationship Specialty Start Date End Date Nicolasa Soto MD [address] [place] [address] PCP - General Internal Medicine 05/26/17
--- OUTSIDE RECORDS SUMMARY | 2024-07-03 08:46 | XMS_ITS | Clinical Summary ---
Author Organization [facility] Address [address] [place] [address] Care Team Providers Care Marketing Services Coordinator Name Role Phone Nicolasa Chairez Primary Care Provider [phone] Surgical History Surgery Date Site/Laterality Comments OTHER SURGICAL HISTORY N/A PROCEDURE: [place] LAPS SURG CHOLECYSTECTOMY W/CHOLANGIOGRAPHY CHOLECYSTECTOMY PROCEDURE: [place] LAPAROSCOPY SURG CHOLECYSTECTOMY BOWEL RESECTION PROCEDURE: HISTORICAL BOWEL RESECTION HYSTERECTOMY PROCEDURE: HISTORICAL HYSTERECTOMY OTHER SURGICAL HISTORY PROCEDURE: [place] FISSURECTOMY INCL SPHINCTEROTOMY WHEN PERFORMED OTHER SURGICAL HISTORY PROCEDURE: [place] EXC CYST/ABERRANT BREAST TISSUE OPEN 1/> LESION Medical History Medical History Date Comments 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/HCC) 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 hn's colitis (HCC) Acquired hemolytic anemia (CMS/HCC) [...] drink = 0.6 oz pur e alcohol) Comments Unknown Sex and Gender Information Value Date Recorded Sex Assigned at Not on file Legal Sex Female 7:04 PM EST Gender Identity Not on file Sexual Orientation [...] Comments DTaP,Tdap,and Td Vaccines (1 - Tdap) 1956 Pneumococcal Vaccine: 50+ Ye ars (1 of 1 - PCV) 1999 Zoster Vaccines (1 of 2) 1999 Colorectal Cancer Screening: Colonoscopy 04/25/2022 Depression Screening 04/25/2022 Falls Risk Assessment 04/25/2022 Hepatitis C Screening 04/25/2022 Social Influencers of Health Screening 04/25/2022 COVID-19 Vaccine ( - 2023-2 5 season) 2024 Influenza Vaccine [...] patient's age to complete this topic Meningococcal B Vacine Aged Out No lo nger eligible based on patient's age to complete this topic RSV Immunization Patients Un wagner 20 months Aged Out No longer eligible b ased on patient's age to complete this topic Varicella Vaccines Aged Out No longer eligible based on patient's age to complete this topic Procedures Procedure Name Priority Date/Time Associated Diagnosis Comments [facility] SCREENING DIGITAL Routine 09/10/2017 4:30 PM EDT Encounter for screening mammogram for malignant neoplasm of breast [facility] DEXA AXIAL SKELETON Routine 09/02/2017 1:58 PM EDT Other specified disorders of bone density and structure, unspecified site from Last 3 Months or Most Recently Relevant to Health Maintenance Results * [facility] SCREENING DIGITAL (09/10/2017 4:30 PM EDT) Anatomical Region Laterality Modality Mammography 09/10/2017 1:23 PM EDT Narrative 09/10/2017 4:30 PM EDT [facility] Diagnostic Imaging Department [address] [place], [place] [address] Patient: ??RONA BROWN ?/Age/Sex: 1950 - 67 - F Unit#: ??[id number] ? Location/Status: ??SPDIMAM/[facility] CLI ? [facility] Order[facility]ician: ??NICOLASA CHAIREZ MD [facility] Screening Digital - 09/10/17 - 1344 EXAM: [facility] Screening Digital EXAM DATE AND [...] mammogram BILATERAL in 1 year. COMMENTS: None. 17171, 04378, 7805F, 3487F Dictating Physician: ??DONG MESA MD Electronically Signed by: ??DONG MESA MD Dic Date/Time: ??09/10/17 1628 Sign date/Time: ??09/10/17 1630 Procedure Note Dong Mesa MD - 05/12/2022 [facility] Diagnostic Imaging Department [address] [place] [address] Patient: RONA BROWN Keya Gonsalves/Age/Sex: 1950 - 67 - F Unit#: [id number] [facility] Ordering Physician: NICOLASA CHAIREZ MD [facility] Screening Digital - 09/10/17 - 1344 EXAM: [facility] Screening Digital EXAM DATE AND TIME: 09/10/2017 1:44 PM HISTORY: Previous benign bilateral breast procedures, the most recent [id number]. First degree family history of breast cancer [...] mammogram BILATERAL in 1 year. COMMENTS: None. [id number], 86305, 1212F, 4318F Dictating Physician: DONG MESA MD Electronically Signed by: DONG MESA MD Dic Date/Time: 09/10/17 1621 Sign date/Time: 09/10/17 1630 Nicolasa Chairez IM BI PROCEDURES Final Result * [facility] DEXA AXIAL SKELETON (09/02/2017 1:58 PM EDT) Anatomical Region Laterality Modality Mammography 09/02/2017 12:5 4 PM EDT Narrative 09/02/2017 1:58 PM EDT [facility] Diagnostic Imaging Department [address] [place] [address] Patient: ??RONA BROWN ?/Age/Sex: 1950 - Unit#: ??[id number] ? Location/Status: ??SPDIMAM/REG CLI ? Mnemonic/Ordering Site: [...] probability of hip fracture of 2.8%. Code 39644 Dictating Physician: ??NAHUN VILLALOBOS MD Electronically Signed by: ??NAHUN VILLALOBOS MD Dic Date/Time: ??09/02/17 1356 Sign date/Time: ??09/02/17 1358 Procedure Note Nahun Villalobos MD - 05/12/2022 [facility] Diagnostic Imaging Department [address] [place], [place] [address] Patient: RONA BROWN /Age/Sex: 1950 - 67 - F Unit#: [id number] Location/Status: [facility] CLI Mnemonic/Ordering Site: MAMDEXAAX/SPMAM Ordering Physician: NICOLASA CHAIREZ MD [facility] Dexa Axial Skeleton - 09/02/17 [...] density of the femurs bilaterally is 0.721 gm/dw2wjlyp is 72% of that of young normals [...] probability of hip fracture of 2.8%. Code 00422 Dictating Physician: NAHUN VILLALOBOS MD Electronically Signed by: NAHUN VILLALOBOS MD Dic Date/Time: 09/02/17 1356 Sign date/Time: 09/02/17 1358 Nicolasa Chairez IM BI PROCEDURES Final Result from Last 3 Months or Most Recently Relevant to Health Maintenance Care Teams Marketing Services Coordinator Relationship Specialty Start Date End Date Nicolasa Chairez [address] [facility] [address] [place], [place] PCP - General Internal Medicine 05/26/17
== END 2024-07-03 08:36 | disposition home or self-care (01) ==
LOC: HO.MAMMO 08:35
PROVIDERS: PCP Nurse Practitioner Family; Visit Provider Surgery
DX: N64.89 Other specified disorders of breast (principal); M81.0 Age-related osteoporosis without current pathological fracture; Z79.899 Other long term (current) drug therapy
CPT/HCPCS: 76642; 99212

== ENCOUNTER 2024-07-03 09:21 | Outpatient (AMB) | payer OTHER, SELFPAY ==
--- NOTE | 2024-07-03 09:33 | MHC.OFFVIS ---
Vital Signs 07/03/24 09:36 Height 5 ft 3 in Weight 141 lb 1.533 oz BMI 25.0 BP 120/78 Blood Pressure Location Rt brachial Position Sitting Intake Visit Reasons: Osteoporosis/Left vm Intake Note: Patient presents for osteosporosis. Allergies codeine Allergy (Severe, Verified 07/03/24 09:38) Vomiting/nausea levofloxacin [From Levaquin] Allergy (Severe, Verified 07/03/24 09:38) Unknown omeprazole [From Prilosec] Allergy (Severe, Verified 07/03/24 09:38) rash sulfamethoxazole [From Bactrim] Allergy (Severe, Verified 07/03/24 09:38) Unknown trimethoprim [From Bactrim] Allergy (Severe, Verified 07/03/24 09:38) Unknown erythromycin base Allergy (Mild, Verified 07/03/24 09:38) mild lansoprazole [From Prevacid] Allergy (Mild, Verified 07/03/24 09:38) rash Penicillins Allergy (Mild, Verified 07/03/24 09:38) rash Sulfa (Sulfonamide Antibiotics) Allergy (Mild, Verified 07/03/24 09:38) rash HPI Comments Details: 74 YO Female is seen in consultation at the request of PCP for Osteoporosis. First diagnosed in 20 yrs . Received treatment in the past with fosamax for 5 yrs , 20 yrs ago . Tolerated treatment well without complication. No history of pathologic fracture or ONJ. Has several servings of dietary calcium per day in the form of cheese, broccoli, salmon . Takes Calcium supplement 1200 mg daily in divided doses. Takes 2000 IU of Vitamin D daily. Use PPI, anticoagulant Clopidrogel , antiepileptic or glucocorticoid medication. Not Does weight bearing exercise Fracture history: No Height loss: No [employer]OVE [employer] AND [employer]MER [employer]IC history: Menarche at 12 - menopause age 49 - nl menses Has history of Kidney stones: Denies family history of Osteoporosis or hip fracture. Not UTD on dental cleanings and sees dentist every 6 months. No planned upcoming dental work or extractions. DXA dated []: T-score of-3.3 in the femoral neck and -2.6 lumbar spine Labs: Secondary workup negative except 24 hour urine for calcium was low suggesting decreased intake of calcium. No fx since last visit. Taking calcium carbonate 600 mg twice a day PFSH Medical History Radial scar of right breast Kidney stones Stroke Crohn disease Depression Surgical History History of cholecystectomy H/O hernia repair History of bowel resection H/O: hysterectomy Family History Other Mental health disorder Social History Household Members: Children Housing: Other (mobile home) Alcohol intake: never Patient Tobacco Use Status: Former Tobacco user Years Smoked: 10 years e-Cigarette/Vaping Use: Never Used Second Hand Smoke Exposure: No service: No Current occupational status: retired Current occupational exposures/hazards: No Cognitive needs: No Hearing needs: No Vision needs: No Physical Exam Vital Signs: Last Vital Signs BP 120/78 07/03/24 09:36 BMI result Body Mass Index 25.0 Assessment & Plan Assessment & Plan (1) Osteoporosis: Code(s): M81.0 - Age-related osteoporosis without current pathological fracture Category: Medical Plan: This is a 73-year-old female with a history of osteoporosis. Workup reveals low urinary 24 hour calcium Plan is to increase the calcium supplementation to change to calcium citrate 600 mg or 650 mg 3 times a day . We will recheck 24 hour urine for calcium and creatinine in 10weeks. Once urinary calcium is normalized, could consider initial treatment with anabolic like Evenity, Tymlos or Forteo followed by an anti resorptive considering patient is a very high risk for fracture with very low bone density. The previous history of stroke many years ago is not an absolute contraindication to giving Evenity Orders: Orders Calcium, 24 Hr Ur 10 Weeks M81.0 - Age-related osteoporosis without current pathological fracture Calcium 10 Weeks M81.0 - Age-related osteoporosis without current pathological fracture Creatinine, 24 Hr Group 10 Weeks M81.0 - Age-related osteoporosis without current pathological fracture Albumin Level 10 Weeks M81.0 - Age-related osteoporosis without current pathological fracture Coding Level of Care Code Est Pt Level 3 (21043) Diagnoses Osteoporosis M81.0
[2024-07-03 09:36] VITALS: BP 120/78; BMI 25.0
== END 2024-07-03 09:52 | disposition home or self-care (01) ==
PROVIDERS: PCP Nurse Practitioner Family; Visit Provider Internal Medicine Endocrinology, Diabetes & Metabolism
DX: M81.0 Age-related osteoporosis without current pathological fracture (principal)
CPT/HCPCS: 99213

== ENCOUNTER 2024-07-20 08:30 | Outpatient (AMB) | payer MEDICARE, SELFPAY ==
[2024-07-20 08:31] VITALS: BMI 25.0
--- NOTE | 2024-07-20 08:31 | MHC.OFFVIS ---
Vital Signs 07/20/24 08:31 Height 5 ft 3 in Weight 141 lb 1.533 oz BMI 25.0 Intake Visit Reasons: breast US follow up Intake Note: This patient presents for breast Ultrasound follow-up. Pt c/o; reports no complaints. Batter Mixer Helper Required: No Accompanied by: Self / Same As Patient Allergies codeine Allergy (Severe, Verified 07/20/24 08:32) Vomiting/nausea levofloxacin [From Levaquin] Allergy (Severe, Verified 07/20/24 08:32) Unknown omeprazole [From Prilosec] Allergy (Severe, Verified 07/20/24 08:32) rash sulfamethoxazole [From Bactrim] Allergy (Severe, Verified 07/20/24 08:32) Unknown trimethoprim [From Bactrim] Allergy (Severe, Verified 07/20/24 08:32) Unknown erythromycin base Allergy (Mild, Verified 07/20/24 08:32) mild lansoprazole [From Prevacid] Allergy (Mild, Verified 07/20/24 08:32) rash Penicillins Allergy (Mild, Verified 07/20/24 08:32) rash Sulfa (Sulfonamide Antibiotics) Allergy (Mild, Verified 07/20/24 08:32) rash Medication List - Last Reconciled 07/20/24 by Hua Hill MD betamethasone dipropionate 0.05% 1 appl topical BID PRN bupropion HCl XL 150 mg PO QAM buspirone 10 mg PO TID 30 days calcium carbonate (Calcium 600) PO .twice clopidogrel 75 mg PO DAILY cyanocobalamin (vitamin B-12) 1,000 mcg IM Q4W 4 weeks dicyclomine 10 mg PO TID duloxetine 60 mg PO DAILY famotidine (Pepcid) 40 mg PO BID PRN levothyroxine 75 mcg PO DAILY magnesium citrate (SlowMag Muscle Recovery) mg PO rabeprazole (AcipHex) 20 mg PO BID ropinirole one in the am and noon then 2 at hs orally; trazodone 50 mg PO BEDTIME PRN 30 days HPI HPI breast US follow up: Details: She is here for a follow-up for a question of an enlarged lymph node in the right axilla. I had sent her for an ultrasound to define this further She denies any complaints at this time. She is here to review her ultrasound findings. PFSH Medical History Radial scar of right breast Kidney stones Stroke Crohn disease Depression Surgical History History of cholecystectomy H/O hernia repair History of bowel resection H/O: hysterectomy Family History Other Mental health disorder Social History Household Members: Children Housing: Other (mobile home) Alcohol intake: never Patient Tobacco Use Status: Former Tobacco user Years Smoked: 10 years e-Cigarette/Vaping Use: Never Used Second Hand Smoke Exposure: No service: No Current occupational status: retired Current occupational exposures/hazards: No Cognitive needs: No Hearing needs: No Vision needs: No Review of Systems Const Denies chills and Denies fever(s) Card Denies chest pain, Denies dyspnea and Denies dyspnea on exertion Resp Denies cough, Denies dyspnea and Denies dyspnea on exertion GI Denies hematochezia and Denies change in bowel habits Denies hematuria Musc Denies back pain and Denies limited range of motion Neuro Denies focal weakness and Denies convulsions Psych Denies depression and Denies mood swings Physical Exam Vital Signs: BMI result Body Mass Index 25.0 Const General: comfortable and no acute distress Chest Other: No obvious axillary lymph Resp Effort & Inspection: normal respiratory effort Cardio Rate: regular rate Assessment & Plan Assessment & Plan (1) Radial scar of right breast: Code(s): N64.89 - Other specified disorders of breast Category: Medical Plan: She had a previous lumpectomy for a radial scar on the right breast. She had a follow-up mammogram showing question of an enlarged lymph node in the right axilla. I therefore sent her for an ultrasound and she had this done 3 weeks ago. This shows normal looking right axillary lymph node with any suspicious enlargement. I assured her about this finding. I reminded her to continue her regular yearly mammograms. Coding Level of Care Code Est Pt Level 3 (78168) Diagnoses Radial scar of right breast N64.89
--- OUTSIDE RECORDS SUMMARY | 2024-07-20 08:58 | XMS_ITS | Clinical Summary ---
Author Organization [facility] Address [address] [place] [address] Care Team Providers Care Assistant Teacher Primary Name Role Phone Nicolasa Soto MD Primary Care Provider [phone] Medications Medication Sig Dispensed Refills Start Date [...] age to complete this topic Care Teams Assistant Teacher Primary Relationship Specialty Start Date End Date Nicolasa Soto MD [address] [place] [address] PCP - General Internal Medicine 05/26/17
--- OUTSIDE RECORDS SUMMARY | 2024-07-20 08:58 | XMS_ITS | Clinical Summary ---
Author Organization [facility] Address [address] [place] [address] Care Team Providers Care Competency Evaluated Nurse Aide Name Role Phone Nicolasa Chairez Primary Care Provider [phone] Surgical History Surgery Date Site/Laterality Comments OTHER SURGICAL HISTORY N/A PROCEDURE: TN LAPS SURG CHOLECYSTECTOMY W/CHOLANGIOGRAPHY CHOLECYSTECTOMY PROCEDURE: TN LAPAROSCOPY SURG CHOLECYSTECTOMY BOWEL RESECTION PROCEDURE: HISTORICAL BOWEL RESECTION HYSTERECTOMY PROCEDURE: HISTORICAL HYSTERECTOMY OTHER SURGICAL HISTORY PROCEDURE: TN FISSURECTOMY INCL SPHINCTEROTOMY WHEN PERFORMED OTHER SURGICAL HISTORY PROCEDURE: TN EXC CYST/ABERRANT BREAST TISSUE OPEN 1/> LESION Medical History Medical History Date Comments 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/HCC) DX:[employer] hn's colitis (HCC) Acquired hemolytic anemia (CMS/HCC) [...] DTaP,Tdap,and Td Vaccines (1 - Tdap) 1968 Pneumococcal Vaccine: 50+ Ye ars (1 of [...] screening mammogram for malignant neoplasm of breast [facility] DEXA AXIAL SKELETON Routine 09/02/2017 1:58 PM EDT Other specified disorders of bone density and structure, unspecified site from Last 3 Months or Most Recently Relevant to Health Maintenance Results * [facility] SCREENING DIGITAL (09/10/2017 4:30 PM EDT) Anatomical Region Laterality Modality Mammography 09/10/2017 1:23 PM EDT Narrative 09/10/2017 4:30 PM EDT [facility] Diagnostic Imaging Department [address] [place] [address] Patient: ??RONA BROWN ?/Age/Sex: 1950 - 67 - F Unit#: ??[id number] ? Location/Status: ??SPDIMAM/REG CLI ? [facility] Order[facility]ician: ??NICOLASA CHAIREZ MD [facility] Screening Digital - 09/10/17 - 1344 EXAM: [facility] Screening Digital EXAM DATE AND TIME: 09/10/2017 [...] mammogram BILATERAL in 1 year. COMMENTS: None. [id number], [id number], [id number], [id number] Dictating Physician: ??DONG MESA MD Electronically Signed by: ??DONG MESA MD Dic Date/Time: ??09/10/17 1101 Sign date/Time: ??09/10/17 1345 Procedure Note Dong Mesa MD - 05/12/2022 [facility] Diagnostic Imaging Department [address] [place] [address] Patient: RONA BROWN Keya /Age/Sex: 1950 - 67 - F Unit#: [id number] [facility]Ordering [facility] Ordering Physician: NICOLASA CHAIREZ MD [facility] Screening Digital - 09/10/17 - 1344 EXAM: [facility] Screening Digital EXAM DATE AND TIME: 09/10/2017 1:44 PM HISTORY: Previous benign bilateral breast procedures, the most recent [id number]. First degree family history of breast cancer [...] mammogram BILATERAL in 1 year. COMMENTS: None. [id number], [id number], 8292F, 1534F Dictating Physician: DONG MESA MD Electronically Signed by: DONG MESA MD Dic Date/Time: 09/10/17 1621 Sign date/Time: 09/10/17 1630 Nicolasa Chairez IMG BI PROCEDURES Final Result * [facility] DEXA AXIAL SKELETON (09/02/2017 1:58 PM EDT) Anatomical Region Laterality Modality Mammography 09/02/2017 12:5 4 PM EDT Narrative 09/02/2017 1:58 PM EDT [facility] Diagnostic Imaging Department [address] [place], [place] [id number] Patient: ??RONA BROWN ?/Age/Sex: 1950 - Unit#: ??[id number] ? Location/Status: ??SPDIMAM/REG CLI ? Mnemonic/Ordering Site: [...] probability of hip fracture of 2.8%. Code 81948 Dictating Physician: ??NAHUN VILLALOBOS MD Electronically Signed by: ??NAHUN VILLALOBOS MD Dic Date/Time: ??09/02/17 1356 Sign date/Time: ??09/02/17 1358 Procedure Note Nahun Villalobos MD - 05/12/2022 [facility] Diagnostic Imaging Department [address] [place], [place] [id number] Patient: RONA BROWN /Age/Sex: 1950 - 67 - F Unit#: [id number] Location/Status: [facility] CLI Mnemonic/Ordering Site: [facility] Ordering Physician: NICOLASA CHAIREZ MD [facility] Dexa Axial Skeleton - 09/02/17 - 1327 [...] density of the femurs bilaterally is 0.721 gm/uv2ghnsl is 72% of that of young normals [...] probability of hip fracture of 2.8%. Code 47791 Dictating Physician: NAHUN VILLALOBOS MD Electronically Signed by: NAHUN VILLALOBOS MD Dic Date/Time: 09/02/17 1356 Sign date/Time: 09/02/17 1358 Nicolasa Chairez IM BI PROCEDURES Final Result from Last 3 Months or Most Recently Relevant to Health Maintenance Care Teams Competency Evaluated Nurse Aide Relationship Specialty Start Date End Date Nicolasa Chairez [address] [facility] [address] [place], [place] PCP - General Internal Medicine 05/26/17
== END 2024-07-20 08:52 | disposition home or self-care (01) ==
PROVIDERS: PCP Nurse Practitioner Family; Visit Provider Surgery
DX: N64.89 Other specified disorders of breast (principal)
CPT/HCPCS: 99213

== ENCOUNTER → 2024-07-20 08:30 | Outpatient (BNVA) | payer MEDICARE, SELFPAY | PROVIDERS: PCP Nurse Practitioner Family; Visit Provider Surgery | DX: N64.89 Other specified disorders of breast (principal) | CPT/HCPCS: 99212 ==

== ENCOUNTER 2024-10-02 11:27 | Outpatient (REF) | payer MEDICARE, SELFPAY ==
--- OUTSIDE RECORDS SUMMARY | 2024-10-02 12:16 | XMS_ITS | Clinical Summary ---
Author Organization [facility] Address [address] [place] [address] Care Team Providers Care Halftone Operator Name Role Phone Nicolasa Soto MD Primary Care Provider [phone] Medications Medication Sig Dispensed Refills Start Date [...] age to complete this topic Care Teams Halftone Operator Relationship Specialty Start Date End Date Nicloasa Soto MD [address] [place] [address] PCP - General Internal Medicine 05/26/17
--- OUTSIDE RECORDS SUMMARY | 2024-10-02 12:16 | XMS_ITS | Clinical Summary ---
Author Organization [facility] [address] [facility] Address [address] [place] [address] Phone Care Team Providers Care Sales Agent Business Services Name Role Phone Nicolasa Chairez Primary Care Provider [phone] Allergies Active Allergy Reactions Criticality Noted Date Comments Erythromycin 11/27/2021 Lansoprazole 11/27/2021 Omeprazole Magnesium 11/27/2021 Penicillin G 11/27/2021 Sulfamethoxazole-Trimethoprim 2021 Medications RABEprazole (ACIPHEX) 20 mg EC tabletIndication s:Gastroesophage al reflux disease without esophagitis Take 1 tablet (20 mg total) by mouth 2 (two) times a day. Do not crush, chew, or split. 180 each 3 5 09/01/19 26 Active dicyclomine (BENTYL) 10 mg capsuleIndicatio ns:Irritable bowel syndrome, unspecified type Take 1 capsule (10 mg total) by mouth 4 (four) times a day. 360 each 2 5 09/30/19 26 Active dicyclomine (BENTYL) 10 mg capsuleIndicatio ns:Irritable bowel syndrome, unspecified type Take 1 capsule (10 mg total) by mouth 4 (four) times a day. 360 each 3 5 09/30/19 25 Discontinu ed(Reorder ) Encounters Date Type Department Care Team Description 08/31/2024 11:00 AM EDT Office Visit Gastroenterology - [address] [place] [address] Lorenza Rodrigues NP Gastroesophageal reflux disease, unspecified whether esophagitis present (Primary Dx); Gastroesophageal reflux disease without esophagitis; Irritable bowel syndrome, unspecified type; Other irritable bowel syndrome 07/22/2024 Telephone Gastroenterology - [address] [place] [address] Lorenza Rodrigues NP Med Refill from Last 3 Months Surgical History Surgery Date Site/Laterality Comments OTHER SURGICAL HISTORY N/A PROCEDURE: ID LAPS SURG CHOLECYSTECTOMY W/CHOLANGIOGRAPHY CHOLECYSTECTOMY PROCEDURE: ID LAPAROSCOPY SURG CHOLECYSTECTOMY BOWEL RESECTION PROCEDURE: HISTORICAL BOWEL RESECTION HYSTERECTOMY PROCEDURE: HISTORICAL HYSTERECTOMY OTHER SURGICAL HISTORY PROCEDURE: ID FISSURECTOMY INCL SPHINCTEROTOMY WHEN PERFORMED OTHER SURGICAL HISTORY PROCEDURE: ID EXC CYST/ABERRANT BREAST TISSUE OPEN 1/> LESION Medical History Medical History Date Comments Crohn's colitis ([facility] V24, [facility] V28) DX:Crohn's colitis (HCC) Acquired hemolytic anemia ([facility]/HCC V24, [facility] V28) DX:Acquired hemolytic anemia (HCC) CVA (cerebral vascular accid ent) (CMS/HCC V24, CMS/HCC V28) DX:CVA (cerebral vascular ac cident) ([facility]) History of stomach ulcers DX:His tory of [...] - Inhaled Oxygen Concentration - - Weight 66.5 kg (146 lb 9.6 oz) 08/31/2024 10:53 AM EDT Height 160 cm (5' 3 ) 08/31/2024 10:53 AM EDT Body Mass Index 25.97 08/31/2024 10:53 AM EDT Plan of Treatment Health Maintenance Due Date Last Done Comments DTaP,Tdap,and Td Vaccines (1 - Tdap) 1968 Pneumococcal Vaccine: 50+ Years (1 of 1 - PCV) 1999 Zoster Vaccines (1 of 2) 1999 Colorectal Cancer Screening: Colonoscopy 04/25/2022 Depression Screening 04/25/2022 Falls Risk Assessment 04/25/2022 Hepatitis C Screening 04/25/2022 Medicare Annual Wellness Visit 04/25/2022 Social Influencers of Health Screening 04/25/2022 COVID-19 Vaccine ( season) 2024 03/06/2024, 02/15/2023, 03/23/2022, Additional history exists Osteoporosis Screening (Bone Density Screening) 09/03/2027 09/02/2017 Breast Cancer Screening Discontinued 09/10/2017 Influenza Vaccine Completed 03/06/2024, , 03/23/2022, Additional history exists RSV Immunization Adult Patients Completed 03/06/2024 HIB Vaccines Aged Out No longer eligi [...] age to complete this topic Meningococcal B Vaccine Aged Out No l onger eligible based on patient's age to complete this topic RSV Immunization Patients Under 20 months Aged Out No longer eligible based on patient's age to complete this topic Varicella Vaccines Aged Out No longer eligible based on patient's age to complete this topic Procedures Procedure Name Priority Date/Time Associated Diagnosis Comments [facility] SCREENING DIGITAL Routine 09/10/2017 4:30 PM EDT Encounter for screening mammogram for malignant neoplasm of breast [facility] DEXA AXIAL SKELETON Routine 09/02/2017 1:58 PM EDT Other specified disorders of bone density and structure, unspecified site from Last 3 Months or Most Recently Relevant to Health Maintenance Results * [facility] SCREENING DIGITAL (09/10/2017 4:30 PM EDT) Anatomical Region Laterality Modality Mammography 09/10/2017 1:23 PM EDT Narrative 09/10/2017 4:30 PM EDT [facility] Diagnostic Imaging Department [address] [place] [address] Patient: ??RONA BROWN ?/Age/Sex: 1950 67 - F Unit#: ??[id number] ? Location/Status: ??SPDIMAM/REG CLI ? Mnemonic/Ordering Site: ??DIGSC/[facility] Ordering Physician: ??NICOLASA CHAIREZ MD [facility] Screening Digital - 09/10/17 - 1344 EXAM: [facility] Screening Digital EXAM DATE AND [...] mammogram BILATERAL in 1 year. COMMENTS: None. [id number], [id number], [id number], [id number] Dictating Physician: ??DONG MESA MD Electronically Signed by: ??DONG MESA MD Dic Date/Time: ??09/10/17 1621 Sign date/Time: ??09/10/17 1630 Procedure Note Dong Mesa MD - 05/12/2022 [facility] Diagnostic Imaging Department [address] [place] [address] Patient: RONA BROWN Keya /Age/Sex: 1950 67 - F Unit#: [id number] Location/Status: [facility] CLI Mnemonic/Ordering Site: [facility] Ordering Physician: NICOLASA CHAIREZ MD [facility] Screening Digital - 09/10/17 - 1344 EXAM: [facility] Screening Digital EXAM DATE AND TIME: 09/10/2017 1:44 PM HISTORY: Previous benign bilateral breast procedures, the most recent [id number]. First degree family history of breast cancer [...] mammogram BILATERAL in 1 year. COMMENTS: None. [id number], [id number], [id number], [id number] Dictating Physician: DONG MESA MD Electronically Signed by: DONG MESA MD Dic Date/Time: 09/10/17 1621 Sign date/Time: 09/10/17 1630 Nicolasa Chairez IMG BI PROCEDURES Final Result * [facility] DEXA AXIAL SKELETON (09/02/2017 1:58 PM EDT) Anatomical Region Laterality Modality Mammography 09/02/2017 12:5 4 PM EDT Narrative 09/02/2017 1:58 PM EDT [facility] Diagnostic Imaging Department [address] [place], [place] [address] Patient: ??RONA BROWN ?/Age/Sex: 1950 - 67 - F Unit#: ??[id number] ? Location/Status: ??SPDIMAM/REG CLI ? Mnemonic/Ordering Site: [...] probability of hip fracture of 2.8%. Code 16963 Dictating Physician: ??NAHUN VILLALOBOS MD Electronically Signed by: ??NAHUN VILLALOBOS MD Dic Date/Time: ??09/02/17 1356 Sign date/Time: ??09/02/17 1358 Procedure Note Nahun Villalobos MD - 05/12/2022 [facility] Diagnostic Imaging Department [address] [place], [place] [address] Patient: RONA BROWN /Age/Sex: 1950 - 67 - F Unit#: [id number] Location/Status: SPDIMAM/REG CLI [facility] Order[facility] Physician: NICOLASA CHAIREZ MD [facility] Dexa Axial Skeleton - [...] density of the femurs bilaterally is 0.721 gm/gu6vnisk is 72% of that of young normals [...] probability of hip fracture of 2.8%. Code 79279 Dictating Physician: NAHUN VILLALOBOS MD Electronically Signed by: NAHUN VILLALOBOS MD Dic Date/Time: 09/02/17 1356 Sign date/Time: 09/02/17 1358 Nicolasa Chairez IMG BI PROCEDURES Final Result from Last 3 Months or Most Recently Relevant to Health Maintenance Insurance [employer] MEDICARE Care Teams Sales Agent Business Services Relationship Specialty Start Date End Date Nicolasa Chairez [address] [place], [place] PCP - General Internal Medicine 05/26/17
[2024-10-02 12:20] LABS: Creatinine, mg/dL 108.32
[2024-10-02 12:38] LABS: Creatinine, 24Hr Urine 0.8 G/Day (1.0-2.0); Total Volume 24 Hour Urine 775 mL
[2024-10-05 18:04] LABS: Calcium, 24 Hr Urine 121 mg/24 h; Calcium/Creatinine Ratio 149 mg/g creat (30-275); Creatinine 24Hr Urine 0.81 g/24 h (0.50-2.15)
== END 2024-10-02 11:28 | disposition home or self-care (01) ==
LOC: HO.LNP 11:27
PROVIDERS: Visit Provider Internal Medicine Endocrinology, Diabetes & Metabolism
DX: M81.0 Age-related osteoporosis without current pathological fracture (principal)
CPT/HCPCS: 82340; 82570

== ENCOUNTER 2024-10-12 09:43 | Outpatient (AMB) | payer MEDICARE, SELFPAY ==
[2024-10-12 09:59] VITALS: BP 124/66; PULSE 53; O2SAT 98; BMI 24.9
--- NOTE | 2024-10-12 09:59 | MHC.OFFVIS ---
Vital Signs 10/12/24 09:59 Height 5 ft 3.19 in Weight 141 lb 5.061 oz BMI 24.9 BP 124/66 Blood Pressure Location Rt brachial Position Sitting Pulse 53 Pulse Source Pulse Oximeter Pulse Oximetry (%) 98 Oxygen Delivery Method Room Air Intake Visit Reasons: Osteoporosis Intake Note: Patient present today for Osteoporosis follow up. 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 Accompanied by: Self / Same As Patient Allergies codeine Allergy (Severe, Verified 10/12/24 10:00) Vomiting/nausea levofloxacin [From Levaquin] Allergy (Severe, Verified 10/12/24 10:00) Unknown omeprazole [From Prilosec] Allergy (Severe, Verified 10/12/24 10:00) rash sulfamethoxazole [From Bactrim] Allergy (Severe, Verified 10/12/24 10:00) Unknown trimethoprim [From Bactrim] Allergy (Severe, Verified 10/12/24 10:00) Unknown erythromycin base Allergy (Mild, Verified 10/12/24 10:00) mild lansoprazole [From Prevacid] Allergy (Mild, Verified 10/12/24 10:00) rash Penicillins Allergy (Mild, Verified 10/12/24 10:00) rash Sulfa (Sulfonamide Antibiotics) Allergy (Mild, Verified 10/12/24 10:00) rash HPI Comments Details: 74 YO Female is seen in consultation at the request of PCP for Osteoporosis. First diagnosed in 20 yrs . Received treatment in the past with fosamax for 5 yrs , 20 yrs ago . Tolerated treatment well without complication. No history of pathologic fracture or ONJ. Has several servings of dietary calcium per day in the form of cheese, broccoli, salmon . Takes Calcium supplement 1200 mg daily in divided doses. Takes 2000 IU of Vitamin D daily. Use PPI, anticoagulant Clopidrogel , antiepileptic or glucocorticoid medication. 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 Not UTD on dental cleanings and sees dentist every 6 months. No planned upcoming dental work or extractions. DXA dated 02/08/24: T-score of-3.3 in the femoral neck and -2.6 lumbar spine Labs: Secondary workup negative The patient is a 74-year-old female presenting with osteoporosis. She previously underwent a regimen involving Alendronate for five years twenty years ago to address her low bone density, as her T-score was -3.3 in the hip. Despite this, her osteoporosis persists. Recent tests have normalized her urinary calcium levels due to added calcium supplementation. The patient has not experienced any bone fractures. Her previous medical history notes a minor stroke in 2007 without further incidents, and she has no history of cancer treatments involving bone radiation. She has several potential pharmacotherapeutic options discussed, with consideration of insurance limitations and copayments, particularly affecting the choices of medications like Evenity, Tymlos, or Forteo. [facility] Medical History (Updated 10/12/24 @ 10:05 by KOKO Benavides) Radial scar of right breast Kidney stones Stroke Crohn disease Depression Surgical History Hx of cataract surgery Hx of breast biopsy Hx of nephrolithotomy with removal of calculi History of cholecystectomy H/O hernia repair History of bowel resection H/O: hysterectomy Family History Other Mental health disorder Social History Household Members: Children Housing: Other (mobile home) Alcohol intake: never Patient Tobacco Use Status: Former Tobacco user Years Smoked: 10 years e-Cigarette/Vaping Use: Never Used Second Hand Smoke Exposure: No service: No Current occupational status: retired Current occupational exposures/hazards: No Cognitive needs: No Hearing needs: No Vision needs: No Physical Exam Vital Signs: Last Vital Signs Pulse 53 10/12/24 09:59 BP 124/66 10/12/24 09:59 Pulse Ox 98 10/12/24 09:59 Oxygen Delivery Method Room Air 10/12/24 09:59 BMI result Body Mass Index 24.9 Assessment & Plan Assessment & Plan (1) Osteoporosis: Code(s): M81.0 - Age-related osteoporosis without current pathological fracture Category: Medical Plan: This is a 73-year-old female with a history of osteoporosis. Secondary workup was negative in 24 hour urine for calcium was normal Plan is to consider initial treatment with anabolic like Evenity, Tymlos or Forteo followed by an anti resorptive considering patient is a very high risk for fracture with very low bone density. The previous history of stroke many years ago is not an absolute contraindication to giving Evenity 1. Osteoporosis The patient with osteoporosis presents with a T-score of -3.3 at the hip despite previous Alendronate therapy. Management will explore osteoanabolic agents. Evenity was selected for its bone-building efficacy. Considerations include submitting the therapy under medical benefits to optimize costs under her Medicare Advantage plan. Patient consented to this plan, acknowledging possible cost-related issues and alternative therapies. I discussed with the patient the scenario of obtaining authorization for the osteoporosis treatment Evenity, as her bone density remains critically low despite past bisphosphonate use. We reviewed the challenges with her insurance coverage under a Medicare Advantage plan, which often places financial burden on the patient. Different treatment paths were feasible, yet contingent on the insurer's approval. The patient expressed comprehension of potential costs and the benefits of Evenity if authorized, and consented to proceed with attempts at acquisition under her revised insurance protocols, through a system that regards it as a medical, not pharmaceutical, benefit. - Await contact from the pharmacy or healthcare provider within the next two weeks for updates on medication authorization. - Follow the plan to initiate monthly Evenity injections if approved. - Consider alternatives like Tymlos if Evenity is not feasible, with insurance advised accordingly. - Schedule a follow-up appointment in four months or sooner if updates from the insurer are received before then. The patient had an opportunity to ask questions regarding treatment plan. The patient expressed understanding and agreement with the above treatment plan. Patient was informed and verbally consented to the use of an ambient scribe for clinic note documentation during this visit. Medications: New Evenity (romosozumab-aqqg) 210 mg (2.34 mL) subcut .qmonth 2.34 mL 11RF NS Coding Level of Care Code Est Pt Level 3 (52255) Diagnoses Osteoporosis M81.0
--- OUTSIDE RECORDS SUMMARY | 2024-10-12 10:05 | XMS_ITS | Clinical Summary ---
Author Organization [facility] [address] [facility] Address [address] [place] [address] Phone Care Team Providers Care Lab Support Tech Name Role Phone Nicolasa Chairez Primary Care Provider [phone] Allergies Active Allergy Reactions Criticality Noted Date [...] AM EDT Office Visit Gastroenterology - [address] [place] [address] Lorenza Rodrigues NP Gastroesophageal reflux disease, unspecified whether esophagitis present (Primary Dx); Gastroesophageal reflux disease without esophagitis; Irritable bowel syndrome, unspecified type; Other irritable bowel syndrome 07/22/2024 Telephone Gastroenterology - [address] [place] [address] Lorenza Rodrigues NP Med Refill from Last 3 Months Surgical History Surgery Date Site/Laterality Comments OTHER SURGICAL HISTORY N/A PROCEDURE: WI LAPS SURG CHOLECYSTECTOMY W/CHOLANGIOGRAPHY CHOLECYSTECTOMY PROCEDURE: WI LAPAROSCOPY SURG CHOLECYSTECTOMY BOWEL RESECTION PROCEDURE: HISTORICAL BOWEL RESECTION HYSTERECTOMY PROCEDURE: HISTORICAL HYSTERECTOMY OTHER SURGICAL HISTORY PROCEDURE: WI FISSURECTOMY INCL SPHINCTEROTOMY WHEN PERFORMED OTHER SURGICAL HISTORY PROCEDURE: WI EXC CYST/ABERRANT BREAST TISSUE OPEN 1/> [facility]ION Medical History Medical History Date Comments Crohn's colitis ([facility] V24, [facility] V28) DX:Crohn's colitis (HCC) Acquired hemolytic anemia (C CA/HCC V24, [facility] V28) DX:Acquired hemolytic anemia (HCC) CVA (cerebral vascular accid ent) (CMS/HCC V24, CMS/HCC V28) DX:CVA (cerebral vascular ac cident) ([facility]) History of stomach ulcers DX:His tory of [...] Procedure Name Priority Date/Time Associated Diagnosis Comments [facility] SCREENING DIGITAL Routine 09/10/2017 4:30 PM EDT Encounter for screening mammogram for malignant neoplasm of breast [facility] DEXA AXIAL SKELETON Routine 09/02/2017 1:58 PM EDT Other specified disorders of bone density and structure, unspecified site from Last 3 Months or Most Recently Relevant to Health Maintenance Results * [facility] SCREENING DIGITAL (09/10/2017 4:30 PM EDT) Anatomical Region Laterality Modality Mammography 09/10/2017 1:23 PM EDT Narrative 09/10/2017 4:30 PM EDT [facility] Diagnostic Imaging Department [address] [place] [address] Patient: ??ROAN BROWN ?/Age/Sex: 1950 67 - F Unit#: ??[id number] ? Location/Status: ??SPDIMAM/REG CLI ? Mnemonic/Ordering Site: ??DIGSC/SPMAM Ordering Physician: ??NICOLASA CHAIREZ MD Luigi Screening Digital - 09/10/17 - 1344 EXAM: [facility] Screening Digital EXAM DATE AND TIME: 09/10/2017 [...] mammogram BILATERAL in 1 year. COMMENTS: None. [id number], [id number], 3342F, 7007F Dictating Physician: ??DONG MESA MD Electronically Signed by: ??DONG MESA MD Dic Date/Time: ??09/10/17 1621 Sign date/Time: ??09/10/17 1630 Procedure Note Dong Mesa MD - 05/12/2022 [facility] Diagnostic Imaging Department [address] [place] [id number] Patient: RONA BROWN Keya /Age/Sex: 1950 67 - F Unit#: [id number] Location/Status: [facility] CLI Mnemonic/Ordering Site: [facility] Ordering Physician: NICOLASA CHAIREZ MD [facility] Screening Digital - 09/10/17 - 1344 EXAM: [facility] Screening Digital EXAM DATE AND TIME: 09/10/2017 1:44 PM HISTORY: Previous benign bilateral breast procedures, the most recent [id number]. First degree family history of breast cancer [...] mammogram BILATERAL in 1 year. COMMENTS: None. [id number], [id number], 3342F, [id number] Dictating Physician: DONG MESA MD Electronically Signed by: DONG MESA MD Dic Date/Time: 09/10/17 1621 Sign date/Time: 09/10/17 1630 Nicolasa Chairez IMG BI PROCEDURES Final Result * [facility] DEXA AXIAL SKELETON (09/02/2017 1:58 PM EDT) Anatomical Region Laterality Modality Mammography 09/02/2017 12:5 4 PM EDT Narrative 09/02/2017 1:58 PM EDT [facility] Diagnostic Imaging Department [address] [place], [place] [id number] Patient: ??RONA BROWN ?/Age/Sex: 1950 - 67 - F Unit#: ??[id number] ? Location/Status: ??SPDIMAM/REG CLI ? Mnemonic/Ordering Site: [...] probability of hip fracture of 2.8%. Code 61850 Dictating Physician: ??NAHUN VILLALOBOS MD Electronically Signed by: ??NAHUN VILLALOBOS MD Dic Date/Time: ??09/02/17 1356 Sign date/Time: ??09/02/17 1358 Procedure Note Nahun Villalobos MD - 05/12/2022 [facility] Diagnostic Imaging Department [address] [place], [place] [id number] Patient: RONA BROWN /Age/Sex: 1950 - 67 - F Unit#: [id number] Location/Status: SPDIMAM/REG CLI [facility] Order[facility]ician: NICOLASA CHAIREZ MD Luigi Dexa [...] density of the femurs bilaterally is 0.721 gm/or6kbald is 72% of that of young normals [...] probability of hip fracture of 2.8%. Code 47376 Dictating Physician: NAHUN VILLALOBOS MD Electronically Signed by: NAHUN VILLALOBOS MD Dic Date/Time: 09/02/17 1356 Sign date/Time: 09/02/17 1358 Nicolasa Chairez IMG BI PROCEDURES Final Result from Last 3 Months or Most Recently Relevant to Health Maintenance Insurance [employer] Care Teams Lab Support Tech Relationship Specialty Start Date End Date Nicolasa Chairez [address] [place], [place] PCP - General Internal Medicine 05/26/17
--- OUTSIDE RECORDS SUMMARY | 2024-10-12 10:05 | XMS_ITS | Clinical Summary ---
Author Organization [facility] Address [address] [place] [address] Care Team Providers Care Concrete Tester Name Role Phone Nicolasa Soto MD Primary Care Provider [phone] Medications Medication Sig Dispensed Refills Start Date [...] age to complete this topic Care Teams Concrete Tester Relationship Specialty Start Date End Date Nicolasa Soto MD [address] [place] [address] PCP - General Internal Medicine 05/26/17
== END 2024-10-12 10:30 | disposition home or self-care (01) ==
LOC: HO.ENCR 09:44
PROVIDERS: PCP Nurse Practitioner Family; Visit Provider Internal Medicine Endocrinology, Diabetes & Metabolism
DX: M81.0 Age-related osteoporosis without current pathological fracture (principal)
CPT/HCPCS: 99213

== ENCOUNTER → 2024-10-12 09:43 | Outpatient (BNVA) | payer MEDICARE, SELFPAY | PROVIDERS: PCP Nurse Practitioner Family; Visit Provider Internal Medicine Endocrinology, Diabetes & Metabolism | DX: M81.0 Age-related osteoporosis without current pathological fracture (principal) | CPT/HCPCS: 99212 ==

== ENCOUNTER 2025-02-15 10:02 | Outpatient (AMB) | payer MEDICARE, SELFPAY ==
--- NOTE | 2025-02-15 10:07 | A.OFFVIS_ITS ---
Vital Signs 02/15/25 10:08 Height 5 ft 3.58 in Weight 143 lb 4.807 oz BMI 24.9 BP 128/78 Blood Pressure Location Rt brachial Position Sitting Pulse 71 Pulse Source Pulse Oximeter Pulse Oximetry (%) 98 Oxygen Delivery Method Room Air Intake Visit Reasons: Osteoporosis Intake Note: Patient present today for Osteoporosis follow up. 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 Accompanied by: Self / Same As Patient Allergies codeine Allergy (Severe, Verified 02/15/25 10:08) Vomiting/nausea levofloxacin (From Levaquin) Allergy (Severe, Verified 02/15/25 10:08) Unknown omeprazole (From Prilosec) Allergy (Severe, Verified 02/15/25 10:08) rash sulfamethoxazole (From Bactrim) Allergy (Severe, Verified 02/15/25 10:08) Unknown trimethoprim (From Bactrim) Allergy (Severe, Verified 02/15/25 10:08) Unknown erythromycin base Allergy (Mild, Verified 02/15/25 10:08) mild lansoprazole (From Prevacid) Allergy (Mild, Verified 02/15/25 10:08) rash Penicillins Allergy (Mild, Verified 02/15/25 10:08) rash Sulfa (Sulfonamide Antibiotics) Allergy (Mild, Verified 02/15/25 10:08) rash Medication List - Last Reconciled 02/15/25 by Iban Sanchez MD abaloparatide (Tymlos) 80 mcg (0.04 mL) subcut DAILY ascorbate calcium (vitamin C) 500 mg PO DAILY betamethasone dipropionate 0.05% 1 appl topical BID PRN bupropion HCl XL 150 mg PO QAM buspirone 10 mg PO TID calcium carbonate (Calcium 600) PO .twice cholecalciferol (vitamin D3) 125 mcg PO BID clopidogrel 75 mg PO DAILY cyanocobalamin (vitamin B-12) 1,000 mcg IM Q4W cyanocobalamin (vitamin B-12) 1,000 mcg PO DAILY dicyclomine 10 mg PO TID duloxetine 60 mg PO DAILY famotidine (Pepcid) 40 mg PO BID PRN levothyroxine 75 mcg PO DAILY lisinopril 20 mg PO DAILY magnesium citrate (SlowMag Muscle Recovery) mg PO metoprolol succinate ER 50 mg PO DAILY pen needle, diabetic (Comfort EZ Pen [place]) As directed inject once a day rabeprazole (AcipHex) 20 mg PO BID ropinirole 1 mg orally; trazodone 50 mg PO BEDTIME PRN 30 days HPI Comments Details: 74 YO Female is seen in consultation at the request of PCP for Osteoporosis. First diagnosed in 20 yrs . Received treatment in the past with fosamax for 5 yrs , 20 yrs ago . Tolerated treatment well without complication. No history of pathologic fracture or ONJ. Has several servings of dietary calcium per day in the form of cheese, broccoli, salmon . Takes Calcium supplement 1200 mg daily in divided doses. Takes 2000 IU of Vitamin D daily. Use PPI, anticoagulant Clopidrogel , antiepileptic or glucocorticoid medication. 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 Not UTD on dental cleanings and sees dentist every 6 months. No planned upcoming dental work or extractions. DXA dated 02/08/24: T-score of-3.3 in the femoral neck and -2.6 lumbar spine Labs: Secondary workup negative The patient is a 74-year-old female presenting with osteoporosis. She previously underwent a regimen involving Alendronate for five years twenty years ago to address her low bone density, as her T-score was -3.3 in the hip. Despite this, her osteoporosis persists. Recent tests have normalized her urinary calcium levels due to added calcium supplementation. Currently not on Tymlos since 09/2024 [facility] Medical History (Updated 12/22/24 @ 09:26 by Krzyzstof Marie [facility]) Restless leg syndrome Radial scar of right breast Kidney stones Stroke Crohn disease Depression Surgical History Hx of cataract surgery Hx of breast biopsy Hx of nephrolithotomy with removal of calculi History of cholecystectomy H/O hernia repair History of bowel resection H/O: hysterectomy Family History Other Mental health disorder Social History Household Members: Children Housing: Other (mobile home) Alcohol intake: never Patient Tobacco Use Status: Former Tobacco user Years Smoked: 10 years e-Cigarette/Vaping Use: Never Used Second Hand Smoke Exposure: No service: No Current occupational status: retired Current occupational exposures/hazards: No Cognitive needs: No Hearing needs: No Vision needs: No Physical Exam Vital Signs: Last Vital Signs Pulse 71 02/15/25 10:08 BP 128/78 02/15/25 10:08 Pulse Ox 98 02/15/25 10:08 Oxygen Delivery Method Room Air 02/15/25 10:08 BMI result Body Mass Index 24.9 Assessment & Plan Assessment & Plan (1) Osteoporosis: Code(s): M81.0 - Age-related osteoporosis without current pathological fracture Category: Medical Plan: This is a 73-year-old female with a history of osteoporosis. Secondary workup was negative Plan is to consider initial treatment with anabolic like Evenity, Tymlos or Forteo followed by an anti resorptive considering patient is a very high risk for fracture with very low bone density. The previous history of stroke many years ago is not an absolute contraindication to giving Evenity Plan is to have pt start Tymlos . Once obtains the Tymlos we will need to come in for nurse visit to learn how to self inject Coding Level of Care Code Est Pt Level 3 (42708) Diagnoses Osteoporosis M81.0
[2025-02-15 10:08] VITALS: BP 128/78; PULSE 71; O2SAT 98; BMI 24.9
--- OUTSIDE RECORDS SUMMARY | 2025-02-15 12:07 | XMS_ITS | Clinical Summary ---
Author Organization [facility] [address] [facility] Address [address] [place] [address] Phone Care Team Providers Care Shot Tube Machine Tender Name Role Phone Lizzy Mittal MD Primary Care Provider Allergies Active Allergy Reactions Criticality Noted Date Comments Codeine 12/11/2024 Erythromycin 11/27/2021 Lansoprazole 11/27/2021 Omeprazole Magnesium 11/27/2021 Penicillin G 11/27/2021 Sulfamethoxazole-Trimethoprim 2021 Medications DULoxetine (CYMBALTA) [address] capsule Take 1 capsule (60 mg total) by mouth 1 (one) time each day. Active traZODone (DESYREL) 50 mg tablet TAKE 1/2 TABLET BY MOUTH EVERY DAY AT BEDTIME NEEDED FOR SLEEP 10/06/19 25 Active cyanocobalamin, vitamin B-12, 1,000 mcg tablet, sublingual Place 1 tablet under the tongue 1 (one) time each day. 360 tablet 11/16/19 25 026 Active magnesium 250 mg tablet Take by mouth. Active ferrous sulfate 325 mg (65 mg iron) EC tablet Take 1 tablet (325 mg total) by mouth 1 (one) time each day with breakfast. Do not crush, chew, or split. 30 each 12/14/19 25 026 Active ascorbic acid (VITAMIN C) 500 mg tablet Take 1 tablet (500 mg total) by mouth 1 (one) time each day. 30 each 12/14/19 25 Active rOPINIRole (REQUIP) 1 mg tablet Take 1 tablet (1 mg total) by mouth 4 (four) times a day. 360 each 12/14/19 25 Active levothyroxine (SYNTHROID, LEVOTHROID) 88 mcg tablet Take 1 tablet (88 mcg total) by mouth 1 (one) time each day. 30 each 2 12/14/19 25 Active TURMERIC ROOT EXTRACT ORAL Take 500 mg by mouth. 10/06/19 Active Bacillus coagulans-inuli n (Probiotic Formula, inulin,) 1 billion-250 cell-mg capsule Take by mouth. 10/06/19 Active RABEprazole (ACIPHEX) 20 mg EC tabletIndicatio ns:Gastroesopha geal reflux disease without esophagitis Take 1 tablet (20 mg total) by mouth 2 (two) times a day. Do not crush, chew, or split. 180 each 01/06/20 25 Active dicyclomine (BENTYL) 10 mg capsuleIndicati ons:Irritable bowel syndrome, unspecified type Take 1 capsule (10 mg total) by mouth 3 (three) times a day. 270 each 01/06/20 25 026 Active buPROPion XL (WELLBUTRIN XL) 150 mg 24 hr tablet Take 1 tablet (150 mg total) by mouth 1 (one) time each day in the morning. 90 each 01/25/20 25 025 Active clopidogreL (PLAVIX) 75 mg tablet Take 1 tablet (75 mg total) by mouth 1 (one) time each day. 90 each 1 01/25/20 25 026 Active cholecalciferol (Vitamin D3) 50 mcg (2,000 unit) capsule Take 1 capsule (2,000 Units total) by mouth 1 (one) time each day. 90 each 01/25/20 25 026 Active metoprolol succinate (TOPROL-XL) 50 mg 24 hr tablet Take 1 tablet (50 mg total) by mouth 1 (one) time each day. Do not crush or chew. 30 each 01/31/20 25 Active lisinopriL (PRINIVIL,ZESTR IL) 2.5 mg tablet Take 1 tablet (2.5 mg total) by mouth 1 (one) time each day. 30 each 01/31/20 25 026 Active buPROPion XL (WELLBUTRIN XL) 150 mg 24 hr tablet Take 1 tablet (150 mg total) by mouth 1 (one) time each day in the morning. 025 Discontinued(Re order) clopidogreL (PLAVIX) 75 mg tablet Take 1 tablet (75 mg total) by mouth 1 (one) time each day. 90 each 11/16/19 25 025 Discontinued(Re order) cholecalciferol (VITAMIN D-3) 25 mcg (1,000 unit) tablet Take 1 tablet (1,000 Units total) by mouth 1 (one) time each day. 025 Discontinued metoprolol tartrate (LOPRESSOR) 25 mg tablet Take 1 tablet (25 mg total) by mouth 2 (two) times a day. 60 each 12/12/19 025 Discontinued nitrofurantoin, macrocrystal-mo nohydrate, (MACROBID) 100 mg capsule Take 1 capsule (100 mg total) by mouth 2 (two) times a day for 7 days. 14 each 01/26/20 25 025 Active Problems Problem Noted Date Diagnosed Date Iron deficiency anemia due to chronic blood loss 01/12/2025 Anxiety 01/04/2025 Migraine 01/04/2025 Osteoporosis 01/04/2025 Renal calculus 01/04/2025 Situational stress 01/04/2025 Urge incontinence 01/04/2025 MVP (mitral valve prolapse) 01/04/2025 Pulmonary nodules 12/28/2024 Iron deficiency 12/13/2024 Crohn's disease with complic ation (CMS/HCC V24, CMS/HCC V28) 12/13/2024 Atrial dilatation, left 12/13/2024 Nonrheumatic mitral valve regurgitation 12/12/19 Assessment & Plan (12/11/2024 4:50 PM EDT): Mitral regurgitation murmur is not impressive and mitral regurgitation is likely moderate by my review. Mitral regurgitation appears functional and likely caused by his severe left atrial dilation. We will continue to monitor. Orders: Ambulatory referral to Cardiology ECG 12 lead Cardiomyopathy (CMS/HCC V24, CMS/HCC V28) 2024 Assessment & Plan (01/30/2025 2:56 PM EDT): Etiology is unknown. Stress test showed no perfusion defect. Will obtain coronary artery CTA to make sure she does not have a balanced ischemia. At the meantime, we will initiate GDMT and switch metoprolol to metoprolol succinate at 50 mg daily and increase dosage as tolerated. Will add low-dose lisinopril. Assessment & Plan (12/11/2024 4:50 PM EDT): I reviewed her echocardiogram myself and her left ventricular size is mildly increased and left ventricular systolic function is mildly reduced with global hypokinesis. There is mild LVH with abnormal echogenicity and trivial pericardial effusion. I would like to schedule a nuclear perfusion stress test first to exclude ischemia and reassess LV systolic function. Due to her abnormal renal function, I will order. Light chain and immunofixation test. Orders: Exercise nuclear stress test with myocardial perfusion; Future High sensitivity CRP; Future Sedimentation rate, automated; Future Tabor-lambda free light chains, quantitative; Future Immunofixation electrophoresis serum; Future PVC (premature ventricular contraction) 12/12/19 Assessment & Plan (01/30/2025 2:56 PM EDT): Her PVC burden is quite high and could be the etiology for cardiomyopathy. Will continue uptitrate beta-nicolás first and if she has no obvious coronary artery disease and PVC burden remains elevated on medication, will refer her to EP for further evaluation. Assessment & Plan (12/11/2024 4:50 PM EDT): Frequent PVCs by EKG and cardiac exam. High PVC burden can cause cardiomyopathy. I will start low-dose metoprolol and schedule Holter monitor to assess PVC burden. Family history of uterine cancer 11/15/2024 Family history of colon cancer 11/15/2024 Family history of breast cancer 11/15/2024 Hypothyroidism 11/15/2024 Anxiety and depression 11/15/2024 Encounter for screening mamm ogram for malignant neoplasm of breast 11/15/2024 Hx of cyst of breast 11/15/2024 LVH (left ventricular hypertrophy) 11/15/2024 Remote history of stroke 11/15/2024 Gastroesophageal reflux disease 11/15/2024 Assessment & Plan (01/05/2025 10:35 AM EDT): Stable with rabeprazole 20mg daily. Continue as directed. Refill sent. Orders: RABEprazole (ACIPHEX) 20 mg EC tablet; Take 1 tablet (20 mg total) by mouth 2 (two) times a day. Do not crush, chew, or split. B12 deficiency 11/15/2024 History of repair of hiatal hernia 11/15/2024 Chronic cough 11/08/2024 Restless leg syndrome 11/08/2024 Irregular heart beat 11/08/2024 History of cardiac murmur 11/08/2024 Paraesophageal hernia 11/27/2021 Overview (01/04/2025): Last Assessment & Plan: 71-year-old woman with Crohn's disease who had a giant paraesophageal hernia repaired with Ton fundoplication on 10/22/2020 now with what looks like a mild to moderate recurrence. I had a long discussion with her about the findings on her most recent barium study and the recurrence. Her symptoms previously were mostly of dysphagia but now primarily seems to be reflux related. Her symptoms have improved and seem to be tolerable with increased antacid medication. We discussed this at length and plan will be for a CT scan of the chest and a follow-up visit with me after that to discuss any further operative intervention versus continued watchful waiting. Acquired hemolytic anemia (CMS/HCC V24, CMS/HCC V28) Overview (01/04/2025): DX:Acquired hemolytic anemia (HCC) 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/HCC V24, CMS/HCC V28) Overview (01/04/2025): DX:Crohn's colitis (HCC) CVA (cerebral vascular accident) (CMS/HCC V24, C WA/HCC V28) Overview (01/04/2025): DX:CVA (cerebral vascular accident) (HCC) History of stomach ulcers Overview (01/04/2025): DX:History of stomach ulcers Encounters Date Type Department Care Team Description 01/30/2025 1:30 PM EDT Office Visit [facility] [address] [facility] [address] [place] [address] Joan Root MD Cardiomyopathy, unspecified type (CMS/HCC V24, CMS/HCC V28) (Primary Dx); PVC (premature ventricular contraction) 01/24/2025 8:30 AM EDT Office Visit [address] [phone] Lizzy Mittal MD Depression, unspecified depression type (Primary Dx); Remote history of stroke; Crohn's disease with complication, unspecified gastrointestinal tract location (CMS/HCC V24, CMS/HCC V28); Cardiomyopathy, unspecified type (CMS/HCC V24, CMS/HCC V28); Mitral valve insufficiency, unspecified etiology; Restless leg syndrome 01/23/2025 Telephone [facility] [address] [facility] [address] [place] [address] Joan Root MD 01/17/2025 Telephone [facility] [address] [facility] [address] [place] [address] Lisa River MA 01/16/2025 Telephone [facility] [address] [facility] [address] [place] [address] Joan Root MD 01/15/2025 Telephone Gastroenterology - 299 [facility] 299 [facility] [address] [place] [phone] Reyna Velarde PA 01/12/2025 2:00 PM EDT Office Visit [facility] Hematology Oncology [address] [place] [phone] Gideon Nunez MD Iron deficiency anemia due to chronic blood loss (Primary Dx); Anemia, unspecified type 01/05/2025 10:10 AM EDT Office Visit Gastroenterology - [address] [facility] [address] [place] [address] Reyna Velarde PA Hiatal hernia (Primary Dx); Gastroesophageal reflux disease without esophagitis; Irritable bowel syndrome, unspecified type 01/01/2025 9:00 AM EDT Ancillary Procedure [facility] [address] 300 [facility] [address] [place] [address] Cardiomyopathy, unspecified type (CMS/HCC V24, CMS/HCC V28) 12/28/2024 11:30 AM EDT Consult Thoracic Surgery - [place] [address] [facility] [address] [place] [phone] Caroline Reilly MD Pulmonary nodules (Primary Dx); Pulmonary nodule; History of repair of hiatal hernia 12/21/2024 9:30 AM EDT Ancillary Procedure [facility] [address] 300 [facility] [address] [place] [address] PVC's (premature ventricular contractions) 12/19/2024 10:09 AM EDT - 12/19/2024 11:59 PM EDT Hospital Encounter Radiology Department - [address] [phone] Elevated serum creatinine Discharge Disposition: Home or Self Care 12/13/2024 8:30 AM EDT Office Visit Adult Medicine [address] [phone] Lizzy Mittal MD Mitral valve insufficiency, unspecified etiology (Primary Dx); PVC (premature ventricular contraction); Cardiomyopathy, unspecified type (CMS/HCC V24, CMS/HCC V28); Family history of colon cancer; Iron deficiency; Crohn's disease with complication, unspecified gastrointestinal tract location (CMS/HCC V24, CMS/HCC V28); LVH (left ventricular hypertrophy); Atrial dilatation, left; Hypothyroidism, unspecified type; Elevated serum creatinine; Anemia, unspecified type; Pulmonary nodule 12/11/2024 1:00 PM EDT Office Visit [facility] [address] [place] [phone] Joan Root MD Cardiomyopathy, unspecified type (CMS/HCC V24, CMS/HCC V28) (Primary Dx); Mitral valve insufficiency, unspecified etiology; PVC's (premature ventricular contractions); PVC (premature ventricular contraction) 11/27/2024 7:30 AM EDT Ancillary Procedure [facility] Cardiology [facility] [address] [place] [phone] Cardiomegaly 11/22/2024 9:00 AM EDT Ancillary Procedure Pulmonology - [place] [address] [place] [phone] Chronic cough (Primary Dx) 11/17/2024 10:35 AM EDT - 11/17/2024 11:59 PM EDT Hospital Encounter CT Scan - [address] [phone] Encounter for subsequent annual wellness visit (AWV) in Medicare patient; Chronic cough Discharge Disposition: Home or Self Care 11/15/2024 10:00 AM EDT Office Visit Adult Medicine [place] - [address] [phone] Lizzy Mittal MD Encounter for subsequent annual wellness visit (AWV) in Medicare patient (Primary Dx); Routine general medical examination at a health care facility; Family history of uterine cancer; Family history of colon cancer; Family history of breast cancer; Hypothyroidism, unspecified type; Cardiomegaly; Chronic cough; Hx of cyst of breast; Encounter for screening mammogram for malignant neoplasm of breast; Anxiety and depression; Remote history of stroke; Restless leg syndrome; B12 deficiency; Gastroesophageal reflux disease, unspecified whether esophagitis present; History of repair of hiatal hernia; Iron deficiency; Hiatal hernia; Atrial dilatation, left; Mitral valve insufficiency, unspecified etiology from Last 3 Months Immunizations Name Administration Dates Next Due Tdap Tetanus diptheria acell ular pertussis (Boostrix; Adacel) 7yo and older 11/15/2024 Surgical History Surgery Date Site/Laterality Comments OTHER SURGICAL HISTORY N/A PROCEDURE: OR LAPS SURG CHOLECYSTECTOMY W/CHOLANGIOGRAPHY CHOLECYSTECTOMY PROCEDURE: OR LAPAROSCOPY SURG CHOLECYSTECTOMY BOWEL RESECTION PROCEDURE: HISTORICAL BOWEL RESECTION HYSTERECTOMY PROCEDURE: HISTORICAL HYSTERECTOMY OTHER SURGICAL HISTORY PROCEDURE: OR FISSURECTOMY INCL SPHINCTEROTOMY WHEN PERFORMED OTHER SURGICAL HISTORY PROCEDURE: OR EXC CYST/ABERRANT BREAST TISSUE OPEN 1/> LESION SMALL INTESTINE SURGERY APPENDECTOMY COLONOSCOPY 06/24/2023 - 07/22/2023 5-yr recall Medical History Medical History Date Comments 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/HCC V24, CMS/HCC V28) DX:Crohn's colitis (HCC) Acquired hemolytic anemia (C MS/HCC V24, CMS/HCC V28) DX:Acquired hemolytic anemia (HCC) CVA (cerebral vascular accid ent) (CMS/HCC V24, CMS/HCC V28) DX:CVA (cerebral vascular ac cident) (HCC) History of stomach ulcers DX:His tory of stomach ulcers Disorder of thyroid DX:Disorder of thyroid Osteoporosis DX:Osteoporosis Social History Tobacco Use Types Packs/Day Years Used Date Smoking Tobacco: Former Cigarettes 0.5 10 Q uit: 1975 Smokeless Tobacco: Never Tobacco Cessation:Counseling Given: Not Answered Alcohol Use Standard Drinks/Week Comments Never 0 (1 standard drink = 0.6 oz pur e alcohol) Housing Instability Answer Date Recorde d Are you worried that in the next 2 months you may not have stable housing? No 12/12/2024 Food Access & Nutrition Answer Date Rec orded Do you have access to a vari ety of food including fruits and vegetables? Yes 12/12/2024 Access to Healthcare Answer Date Record ed Within the last 3 months, ho w many times did you visit the emergency department for your medical care? 0 12/12/2024 Health Literacy Answer Date Recorded How often do you need to hav e someone help you when you read instructions, pamphlets, or other written material from your doctor or pharmacy? Never 12/12/2024 Caregiver: How often do you need to have someone help you when you read instructions, pamphlets, or other written material from your doctor or pharmacy? Not on file 12/12/2024 Financial Risk Answer Date Recorded How hard is it for you to pa y for the very basics like food, housing, medical care, and air conditioning / heating? Not very hard 12/12/2024 Transportation Answer Date Recorded Has the lack of transportati on kept you from meetings, work, or from getting things needed for daily living? No Has the lack of transportati on kept you from medical appointments or from getting medications? No 12/12/2024 Social Isolation Answer Date Recorded How often do you feel lonely or isolated from th ose around you? Rarely 12/12/2024 Food Risk Answer Date Recorded Within the past 12 months we worried whether our food would run out before we got money to buy more. Never true 12/12/2024 Within the past 12 months th e food we bought just didn't last and we didn't have money to get more. Never true 12/12/2024 Dependent Care Answer Date Recorded Do you need help finding or paying for care for your loved ones. For example, childcare worker or elderly care for an older adult? No 12/12/2024 Education Answer Date Recorded Do you think completing more education or training, like finishing a GED, going to college, or learning a trade, would be helpful for you? N/A 12/12/2024 Employment and Income Answer Date Recor ded During the last four weeks, have you been actively looking for work? No 12/12/2024 Living Situation Answer Date Recorded What is your living situation? 0 12/12/2024 Comments Unknown Sex and Gender Information Value Date Recorded Sex Assigned at Not on file Legal Sex Female 7:04 PM EST Gender Identity Not on file Sexual Orientation Not on file Obstetrics History Last Filed Vital Signs Vital Sign Reading Time Taken Comments Blood Pressure 118/60 01/30/2025 1:19 PM EDT Pulse 80 01/30/2025 1:19 PM EDT Temperature 36.1 C (97 F) 01/24/2025 8:26 AM EDT Respiratory Rate 12 01/24/2025 8:26 AM EDT Oxygen Saturation 98% 01/30/2025 1:19 PM EDT Inhaled Oxygen Concentration - - Weight 64.7 kg (142 lb 9.6 oz) 01/30/2025 1:19 P M EDT Height 157.5 cm (5' 2 ) 01/30/2025 1:19 PM EDT Body Mass Index 26.08 01/30/2025 1:19 PM EDT Plan of Treatment Upcoming Encounters Date Type Department Care Team (Late st Contact Info) Description 04/04/2025 10:30 AM EST Appointment [facility] Endoscopy [address] [place] [phone] Philip Amin MD 299 [facility] [address] [place], [place] [phone] 04/13/2025 11:00 AM EST Office Visit [facility] Hematology Oncology [address] [place] [address] Gideon Nunez MD [address] [place] [address] 07/25/2025 9:45 AM EST Office Visit Adult Medicine [facility] [address] [place] [phone] Lizzy Mittal MD [address] [place] [address] 11/27/2025 10:00 AM EDT Ancillary Procedure [facility] [address] [phone] Health Maintenance Due Date Last Done Comments Zoster Vaccines (2 of 2) 12/27/2024 11/01/2024 Influenza Vaccine (#1) 2025 , 02/15/2023, 03/23/2022, Additional history exists Colorectal Cancer Screening: Colonoscopy 05/24/2025 Postponed from 04/25/2022 (Patient Refused) Hepatitis C Screening 05/24/2025 Postpo don from 04/25/2022 (Patient Refused) Falls Risk Assessment 11/15/2025 11/15/2024 Medicare Annual Wellness Visit 11/15/2025 11/15/2024 Social Influencers of Health Screening 12/12/2025 12/12/2024, 11/15/2024 Osteoporosis Screening (Bone Density Screening) 09/03/2027 09/02/2017 Cholesterol Screening (Lipid Panel) 12/06/2029 12/06/2024 DTaP,Tdap,and Td Vaccines (2 - Td or Tdap) 11/15/2034 11/15/2024 Breast Cancer Screening Discontinued 09/10/2017 RSV Immunization Adult Patients Completed 03/06/2024 COVID-19 Vaccine Completed 11/01/2024, , 02/15/2023, Additional history exists Pneumococcal Vaccine: 50+ Years Completed 11/01/2024 Depression Screening Completed 12/12/2024 HIB Vaccines Aged Out No longer eligi [...] Procedure Name Priority Date/Time Associated Diagnosis Comments THYROID STIMULATING HORMONE Routine 01/24/2025 9:17 AM EDT Elevated serum creatinine Anemia, unspecified type Hypothyroidism, unspecified type POZO URINE CULTURE TUBE Routine 01/25/20 9:12 AM EDT Elevated serum creatinine Anemia, unspecified type URINALYSIS WITH REFLEX MICROSCOPIC AND CULTURE Routine 01/24/2025 9:12 AM EDT Elevated serum creatinine Anemia, unspecified type URINALYSIS WITH REFLEX MICROSCOPIC AND CULTURE Routine 01/24/2025 9:12 AM EDT Elevated serum creatinine Anemia, unspecified type CULTURE URINE Routine 01/24/2025 9:12 AM EDT Elevated serum creatinine Anemia, unspecified type NM LEXISCAN STRESS TEST W/ MYOCARDIAL PERFUSION Routine 01/01/2025 11:33 AM EDT Cardiomyopathy, unspecified type (CMS/HCC V24, CMS/HCC V28) CARDIAC HOLTER MONITOR (REPORT GENERATED IN HOUSE) Routine 12/21/2024 9:31 AM EDT PVC's (premature ventricular contractions) US RETROPERITONEAL COMPLETE Routine 12/19/2024 11:04 AM EDT Elevated serum creatinine BASIC METABOLIC PANEL Routine 12/11/2024 2:02 PM EDT Elevated serum creatinine OR IMMUNOFIXATION ELECTROPHORESIS SERUM Routine 12/11/2024 2:00 PM EDT Idiopathic cardiomyopathy (CMS/HCC V24, CMS/HCC V28) IMMUNOGLOBULINS IGG, IGA, IGM Routine 12/11/2024 2:00 PM EDT Idiopathic cardiomyopathy (CMS/HCC V24, CMS/HCC V28) IMMUNOFIXATION ELECTROPHORESIS Routine 12/11/2024 2:00 PM EDT Idiopathic cardiomyopathy (CMS/HCC V24, CMS/HCC V28) IMMUNOFIXATION ELECTROPHORESIS Routine 12/11/2024 2:00 PM EDT Idiopathic cardiomyopathy (CMS/HCC V24, CMS/HCC V28) KAPPA-LAMBDA QUANTITATIVE FREE LIGHT CHAINS Routine 12/11/2024 2:00 PM EDT Cardiomyopathy, unspecified type (CMS/HCC V24, CMS/HCC V28) SEDIMENTATION RATE Routine 12/11/2024 2: 00 PM EDT Cardiomyopathy, unspecified type (CMS/HCC V24, CMS/HCC V28) C REACTIVE PROTEIN, HIGH SENSITIVITY Routine 12/11/2024 2:00 PM EDT Cardiomyopathy, unspecified type (CMS/HCC V24, CMS/HCC V28) ECG 12-LEAD Routine 12/11/2024 1:10 PM EDT Mitral valve insufficiency, unspecified etiology TRIIODOTHYRONINE FREE Routine 12/06/2024 8:03 AM EDT Encounter for subsequent annual wellness visit (AWV) in Medicare patient FREE THYROXINE WITH REFLEX TO FREE TRIIODOTHYRONINE Routine 12/06/2024 8:03 AM EDT Encounter for subsequent annual wellness visit (AWV) in Medicare patient INTERFERON GAMMA INTERPRETATION Routine 12/06/2024 8:03 AM EDT Encounter for subsequent annual wellness visit (AWV) in Medicare patient CBC WITH AUTO DIFFERENTIAL Routine 12/06/2024 8:03 AM EDT Encounter for subsequent annual wellness visit (AWV) in Medicare patient INTERFERON GAMMA ANTIGEN 2 Routine 12/06/2024 8:03 AM EDT Encounter for subsequent annual wellness visit (AWV) in Medicare patient INTERFERON GAMMA ANTIGEN 1 Routine 12/06/2024 8:03 AM EDT Encounter for subsequent annual wellness visit (AWV) in Medicare patient INTERFERON GAMMA MITOGEN Routine 12/06/2024 8:03 AM EDT Encounter for subsequent annual wellness visit (AWV) in Medicare patient INTERFERON GAMMA NIL Routine 12/06/2024 8:03 AM EDT Encounter for subsequent annual wellness visit (AWV) in Medicare patient CBC AND DIFFERENTIAL Routine 12/06/2024 8:03 AM EDT Encounter for subsequent annual wellness visit (AWV) in Medicare patient COMPREHENSIVE METABOLIC PANEL Routine 12/06/2024 8:03 AM EDT Encounter for subsequent annual wellness visit (AWV) in Medicare patient LIPID PANEL WITH REFLEX TO DIRECT LDL Routine 12/06/2024 8:03 AM EDT Encounter for subsequent annual wellness visit (AWV) in Medicare patient THYROID STIMULATING HORMONE WITH REFLEX TO FREE T4 AND FREE T3 Routine 12/06/2024 8:03 AM EDT Encounter for subsequent annual wellness visit (AWV) in Medicare patient INTERFERON GAMMA FOR TB, QUALITATIVE Routine 12/06/2024 8:03 AM EDT Encounter for subsequent annual wellness visit (AWV) in Medicare patient B-TYPE NATRIURETIC PEPTIDE Routine 12/06/2024 8:03 AM EDT Encounter for subsequent annual wellness visit (AWV) in Medicare patient Chronic cough VITAMIN B12 Routine 12/06/2024 8:03 AM EDT B12 deficiency IRON AND TIBC Routine 12/06/2024 8:03 AM EDT Encounter for subsequent annual wellness visit (AWV) in Medicare patient Restless leg syndrome Iron deficiency TRANSTHORACIC ECHOCARDIOGRAM (TTE) COMPLETE Routine 11/27/2024 8:08 AM EDT Cardiomegaly PULMONARY FUNCTION TESTING Routine 11/22/2024 9:13 AM EDT Chronic cough CT CHEST WO CONTRAST Routine 11/17/2024 10:38 AM EDT Encounter for subsequent annual wellness visit (AWV) in Medicare patient Chronic cough [facility] SCREENING DIGITAL Routine 09/10/2017 4:30 PM EDT Encounter for screening mammogram for malignant neoplasm of breast [facility] DEXA AXIAL SKELETON Routine 09/03/19 18 1:58 PM EDT Other specified disorders of bone density and structure, unspecified site from Last 3 Months or Most Recently Relevant to Health Maintenance Results * Thyroid stimulating hormone (01/24/2025 9:17 AM EDT) [facility] TSH 3.34 0.40 - 4.00 mcIU/mL LAB CHEMISTRY METHOD 01/24/2025 12:52 PM EDT [facility] ([facility] Blood Venous blood specimen / Unknown Venipuncture / Unknown 01/24/2025 9:17 AM EDT 01/24/2025 9:17 AM EDT Lizzy Mittal MD LAB BLOOD ORDERABLES Final Result [facility] [address] [place] [address], [place] [phone] * (ABNORMAL) Urinalysis with reflex microscopic and culture (01/24/2025 9:12 AM EDT) Specific [place]aver Urine 1.017 1.003 - 1.030 LAB URINALYSIS - AUTOMATED METHOD 01/24/2025 10:17 AM [facility] pH, Urine 5.5 5.0 - 8.0 pH LAB URINALYSIS - AUTOMATED METHOD 01/24/2025 10:17 AM [facility] Leukocytes, Urine Moderate(A) Negative LAB URINALYSIS - AUTOMATED METHOD 01/24/2025 10:17 AM [facility] Nitrite, Urine Positive(A) Negative LAB URINALYSIS - AUTOMATED METHOD 01/24/2025 10:17 AM [facility] Protein, Urine Negative <=Trace mg/dL LAB URINALYSIS - AUTOMATED METHOD 01/24/2025 10:17 AM [facility] Glucose, Urine Negative Negative mg/dL LAB URINALYSIS - AUTOMATED METHOD 01/24/2025 10:17 AM [facility] Ketones, Urine Negative Negative mg/dL LAB URINALYSIS - AUTOMATED METHOD 01/24/2025 10:17 AM [facility] Urobilinogen , Urine 0.2 0.2 - 1.0 mg/dL LAB URINALYSIS - AUTOMATED METHOD 01/24/2025 10:17 AM [facility] Bilirubin, Urine Negative Negative LAB URINALYSIS - AUTOMATED METHOD 01/24/2025 10:17 AM [facility] Blood, Urine Negative Negative LAB URINALYSIS - AUTOMATED METHOD 01/24/2025 10:17 AM [facility] RBC, Urine 1.7 0 - 4 /HPF LAB URINALYSIS - AUTOMATED METHOD 01/24/2025 10:17 AM EDT [facility] WBC, Urine 24.9(H) 0 - 4 /HPF LAB URINALYSIS - AUTOMATED METHOD 01/24/2025 10:17 AM EDT [facility] Squamous Epithelial, Urine 16 0 - 60 /LPF LAB URINALYSIS - AUTOMATED METHOD 01/24/2025 10:17 AM EDT [facility] Bacteria, Urine Many(A) Negative /HPF LAB URINALYSIS - AUTOMATED METHOD 01/24/2025 10:17 AM EDT [facility] Hyaline Casts, Urine 2.4 0 - 3 /LPF LAB URINALYSIS - AUTOMATED METHOD 01/24/2025 10:17 AM EDT [facility] Urine Urine specimen obtained by clean catch procedure / Unknown Non-blood Collection / Unknown 01/24/2025 9:12 AM EDT 01/24/2025 9:12 AM EDT Lizzy Mittal MD LAB URINE ORDERABLES Final Result [facility] [address] [place] [address], [place] [phone] * Pozo urine culture tube (01/24/2025 9:12 AM EDT) Extra Tube Hold for add-ons. 01/24/2025 11:01 AM EDT [facility] Comment:Auto resulted. Urine Urine specimen obtained by clean catch procedure / Unknown Non-blood Collection / Unknown 01/24/2025 9:12 AM EDT 01/24/2025 9:12 AM EDT Lizzy Mittal MD LAB URINE ORDERABLES Final Result Performing Organization Address City/[facility]/ZIP Co de Phone Number [facility] [address] [place] [address], [place] [phone] * (ABNORMAL) Culture urine (01/24/2025 9:12 AM EDT) Culture, Urine >=100,000 CFU/mL Escherichia coli(A) LEMUEL 01/26/2025 10:44 AM EDT [facility] Urine Urine specimen obtained by clean catch procedure / Unknown Non-blood Collection / Unknown 01/24/2025 9:12 AM EDT 01/24/2025 10:17 AM EDT Narrative Organism Antibiotic Method Susceptibility Escherichia coli Amoxicillin/Clavulanate LEMUEL <=2 ug/ml: Susceptible Escherichia coli Ampicillin/Sulbactam LEMUEL <=2 ug/ml: Susceptible Escherichia coli Piperacillin/Tazobactam LEMUEL <=4 ug/ml: Susceptible Escherichia coli Cefazolin (Urine) LEMUEL <=1 ug/ml: Susceptible Escherichia coli Cefoxitin LEMUEL <=4 ug/ml: Susceptible Escherichia coli Ceftazidime LEMUEL <=0.5 ug/ml: Susceptible Escherichia coli Ceftriaxone LEMUEL <=0.25 ug/ml: Susceptible Escherichia coli Cefepime LEMUEL <=0.12 ug/ml: Susceptible Escherichia coli Meropenem LEMUEL <=0.25 ug/ml: Susceptible Escherichia coli Amikacin LEMUEL 2 ug/ml: Susceptible Escherichia coli Gentamicin LEMUEL <=1 ug/ml: Susceptible Escherichia coli Ciprofloxacin LEMUEL <=0.06 ug/ml: Susceptible Escherichia coli Levofloxacin LEMUEL <=0.12 ug/ml: Susceptible Escherichia coli Nitrofurantoin LEMUEL <=16 ug/ml: Susceptible Escherichia coli Trimethoprim/Sulfamethoxazole LEMUEL <=20 ug/ml: Susceptible us Lizzy Mittal MD LAB MICROBIOLOGY - GENERAL ORDERABLES Final Result [facility] [address] [place] [address], [place] [phone] * NM LEXISCAN STRESS TEST W/ MYOCARDIAL PERFUSION (01/01/2025 11:33 AM EDT) Exercise/inject ion duration (min) 0 CV PACS STRESS Exercise/inject ion duration (sec) 44 CV PACS STRESS Peak SBP 118 mmHg CV PACS STRESS Peak DBP 56 mmHg CV PACS STRESS Peak HR 95 bpm CV PACS STRESS Baseline HR 69 bpm CV PACS STRESS Baseline SBP 146 mmHg CV PACS STRESS Baseline DBP 70 mmHg CV PACS STRESS Estimated workload 1.0 METS CV PACS STRESS Percent HR 66 % CV PACS STRESS Rate Pressure Product 11,210.0 mmHg*bpm CV PACS STRESS Target HR 123 bpm CV PACS STRESS Max HR Percent 65 % CV PA CS STRESS ST Depression (mm) 0 mm CV PACS STRESS O2 sat rest 99 % CV PACS STRESS TID 1.15 CV PACS STRESS Nuc Stress EF 53 % CV PAC S STRESS BSA 1.68 m2 CV PACS STRESS Anatomical Region Laterality Modality Nuclear Medicine 01/01/2025 10:2 2 AM EDT 01/01/2025 10:37 AM EDT Impressions 01/01/2025 2:46 PM EDT Abnormal Regadenoson stress test with nuclear imaging. No chest pain or EKG changes consistent with ischemia. Nuclear imaging revealed No significant perfusion defects after attenuation correction was applied. There is a normal TID ratio. Gated SPECT imaging was performed and revealed an LVEF of 53 %. Studies described as abnormal on the basis of dilated LV Narrative 01/01/2025 2:46 PM EDT Nuclear imaging of the left ventricle shows a dilated cavity size. Myocardial perfusion imaging of the left ventricle reveals No significant perfusion defects after CT attenuation correction was applied to the study. Gated SPECT imaging was performed which demonstrated normal left ventricular systolic function. The calculated stress LVEF is 53 %. TID ratio is normal. Stress Findings A pharmacological stress test was performed using regadenoson, 0.4 mg IV over 10-15 seconds, followed by radiopharmacological injection 10 seconds post infusion. Of note, a Donal protocol exercise stress test was attempted initially; however, the patient became suddenly and significantly dyspneic with exertion at approximately 1 minute and 19 seconds, prompting immediate cessation of exercise. Total stress time was 0 min and 44 sec. The patient reached the end of the protocol. No low level exercise was used during pharmacological stress test. Blood pressure demonstrated a hypotensive response. Heart rate demonstrated a normal response. The patient reported lightheadedness and mild headache during the stress test which resolved in recovery after caffeine intake. ECG 74-year-old female with a history of cardiomyopathy now with reports of dyspnea on exertion; rule out ischemia. Cardiac risk factors include former smoker with history of CVA in 2007; no previous known cardiac events. Last dose of metoprolol taken on the evening of 12/31/2024. Baseline ECG shows sinus rhythm with occasional PVCs. Arrhythmias during stress: Increased premature ventricular contractions (PVCs) were noted with attempted Donal protocol stress test, including occasional couplets. No arrhythmias noted during regadenoson nuclear stress test. There is no ST segment changes during stress. Arrhythmias during recovery:Frequent premature ventricular contractions (PVCs) were noted during the recovery of both the attempted Donal protocol stress test as well as regadenoson nuclear stress test. Rare PACs were noted with recovery of regadenoson nuclear stress test. Nuclear Study Quality Study technique: MPI, SPECT, multi, rest and stress, 1 day and gated. Overall image quality is good. CT attenuation correction was utilized. No radiopharmaceutical dose was extravasated. The time from injection to rest imaging is 35 mins. The time from injection to stress imaging is 40 mins. Stress Function Comments Stress ejection fraction is 53%. Rest Function Comments not gated us Joan Root MD CV STRESS PROCEDURES Final Resul t * CARDIAC HOLTER MONITOR (REPORT GENERATED IN HOUSE) (12/21/2024 9:31 AM EDT) Anatomical Region Laterality Modality Cardiac Diagnost ic Narrative 12/25/2024 1:02 PM EDT [facility] DIAGNOSTIC TESTING DEPARTMENT [address] [place] [address], [place] [address] TEL: FAX: Type of Test: 24 Hour Holter Monitor Date of Test: 12/21/2024 Ordering Provider: Joan Root MD Reason for Test: PVC's (premature ventricular contractions) PVCA Senior Project Accountant Findings: 1: Normal Sinus Rhythm. 2: Rare PACs, aberrant beats, and atrial pairs. 3: Frequent PVCs, ventricular bigeminy, and couplets. Rare ventricular trigeminy and triplets. PVC [place] was 13.2%. 4: No significant pauses noted, longest R-R was 1.4 seconds at 2:39 AM. 5: Diary returned with no symptoms noted. Impression: Normal sinus rhythm with frequent PVCs. PVC burden of 13.2%. No sustained atrial or ventricular arrhythmias and no bradycardia or pauses. us Joan Root MD CV CARDIAC SERVICES PROCEDURES F inal Result * US Retroperitoneal Complete (12/19/2024 11:04 AM EDT) Anatomical Region Laterality Modality Body Ultrasound 12/19/2024 11:2 8 AM EDT Impressions 12/19/2024 11:31 AM EDT No renal or bladder abnormality identified. POS - [id number] -------- FINAL REPORT -------- Dictated By: Catherine Hardin Dictated Date: 12/19/2024 11:28 ET Assigned Physician: Catherine Hardin Reviewed and Electronically Signed By: Catherine Hardin Signed Date: 12/19/2024 11:31 ET Workstation ID: [id number] Transcribed By: Self Edit Transcribed Date: 12/19/2024 11:28 ET Narrative 12/19/2024 11:31 AM EDT EXAM: Ultrasound retroperitoneal HISTORY: Elevated serum creatinine. COMPARISON: None FINDINGS: Kidneys are within normal limits for size measuring 9.9 cm on the right and 9.6 cm on the left in craniocaudad extent. Cortical thickness and echogenicity are within normal limits. No hydronephrosis, focal lesions, or shadowing stones. Prevoid bladder volume measures 130 cc and post void measures 44 cc. No evidence of an intraluminal mass or stone. No bladder wall thickening. Both ureteral jets are visualized. Procedure Note Catherine Hardin MD - 12/19/2024 EXAM: Ultrasound retroperitoneal HISTORY: Elevated serum creatinine. COMPARISON: None FINDINGS: Kidneys are within normal limits for size measuring 9.9 cm on the rightand 9.6 cm on the left in craniocaudad extent. Cortical thickness andechogenicity are within normal limits. No hydronephrosis, focal lesions,or shadowing stones. Prevoid bladder volume measures 130 cc and post void measures 44 cc. Noevidence of an intraluminal mass or stone. No bladder wall thickening.Both ureteral jets are visualized. IMPRESSION: No renal or bladder abnormality identified. POS - [id number] -------- FINAL REPORT -------- Dictated By: Catherine Hardin Dictated Date: 12/19/2024 11:28 ET Assigned Physician: Catherine Hardin Reviewed and Electronically Signed By: Catherine Hardin Signed Date: 12/19/2024 11:31 ET Workstation ID: [id number] Transcribed By: Self Edit Transcribed Date: 12/19/2024 11:28 ET us Lizzy Mittal MD IMG US PROCEDURES Final Res ult * (ABNORMAL) Basic metabolic panel (12/11/2024 2:02 PM EDT) Sodium 138 133 - 145 mmol/L LAB CHEMISTRY METHOD 12/11/2024 3:15 PM [facility] Potassium 4.1 3.5 - 5.5 mmol/L LAB CHEMISTRY METHOD 12/11/2024 3:15 PM [facility] Chloride 105 96 - 110 mmol/L LAB CHEMISTRY METHOD 12/11/2024 3:15 PM [facility] CO2 26 21 - 32 mmol/L LAB CHEMISTRY METHOD 12/11/2024 3:15 PM [facility] Anion Gap 7 3 - 11 LAB CHEMISTRY METHOD 12/11/2024 3:15 PM [facility] Glucose 90 70 - 100 mg/dL LAB CHEMISTRY METHOD 12/11/2024 3:15 PM [facility] BUN 18 5 - 25 mg/dL LAB CHEMISTRY METHOD 12/11/2024 3:15 PM [facility] Creatinine 1.40(H) 0.50 - 1.10 mg/dL LAB CHEMISTRY METHOD 12/11/2024 3:15 PM [facility] eGFR 39(L) >=60 mL/min/1. 73m2 LAB CHEMISTRY METHOD 12/11/2024 3:15 PM EDT [facility] Comment:Calculation based on the Chronic Kidney Disease Epidemiology Collaboration (CKD-EPI) equation refit without adjustment for race. BUN/Creatinine Ratio 12.9 LAB CHEMISTRY METHOD 12/11/2024 3:15 PM EDT [facility] Calcium 9.7 8.5 - 10.5 mg/dL LAB CHEMISTRY METHOD 12/11/2024 3:15 PM EDT [facility] Blood Venous blood specimen / Unknown Venipuncture / Unknown 12/11/2024 2:02 PM EDT 12/11/2024 2:10 PM EDT Lizzy Mittal MD LAB BLOOD ORDERABLES Final Result Performing Organization Address [facility]/ZIP Co de Phone Number [facility] [address] [place] [address], [place] [phone] * Pathologist Review Immunofixation (12/11/2024 2:00 PM EDT) Pathologist Interpretation Kirtsen Resendez MD 12/13/2024 3:19 PM EDT [facility] Blood Venous blood specimen / Unknown Venipuncture / Unknown 12/11/2024 2:00 PM EDT 12/11/2024 2:09 PM EDT Joan Root MD LAB BLOOD ORDERABLES Final Resul t [facility] [address] [place] [address], [place] [phone] * (ABNORMAL) Tabor-lambda free light chains, quantitative (12/11/2024 2:00 PM EDT) Tabor Free Light Chain 3.42(H) 0.33 - 1.94 mg/dL 12/14/2024 12:02 PM EDT [facility] Lambda Free Light Chain 2.39 0.57 - 2.63 mg/dL 12/14/2024 12:[address] [facility] Tabor/Lambda FLC Ratio 1.43 0.26 - 1.65 12/14/2024 12:[address] [facility] Comment: Test performed at [facility], [address] , [place] [address] Fifi Talbert MD, PhD - Molder Shoulder Pad Blood Venous blood specimen / Unknown Venipuncture / Unknown 12/11/2024 2:00 PM EDT 12/11/2024 2:09 PM EDT us Joan Root MD LAB BLOOD ORDERABLES Final Resul t [facility] [address] [place] [address] * Sedimentation rate, automated (12/11/2024 2:00 PM EDT) Pathologist [facility] Sed Rate 25 0 - 30 mm/hr LAB HEMETOLOGY METHOD 12/11/2024 2:30 PM EDT [facility] Blood Venous blood specimen / Unknown Venipuncture / Unknown 12/11/2024 2:00 PM EDT 12/11/2024 2:07 PM EDT us Joan Root MD LAB BLOOD ORDERABLES Final Resul t [facility] [address] [place] [address], [place] [phone] * Immunofixation electrophoresis serum (12/11/2024 2:00 PM EDT) Immunofixation Result, Serum No monoclonal immunoglobulins detected. LAB CHEMISTRY METHOD 12/13/2024 3:19 PM EDT [facility] Blood Venous blood specimen / Unknown Venipuncture / Unknown 12/11/2024 2:00 PM EDT 12/11/2024 2:09 PM EDT us Joan Root MD LAB BLOOD ORDERABLES Final Resul t Performing Organization Address City/[facility]/ZIP Co de Phone Number [facility] [address] [place] [address], [place] [phone] * Immunoglobulins IgG, IgA, IgM (12/11/2024 2:00 PM EDT) Total IgG 812 549 - 1,584 mg/dL LAB CHEMISTRY METHOD 12/11/2024 3:19 PM EDT [facility] IgA 111 61 - 348 mg/dL LAB CHEMISTRY METHOD 12/11/2024 3:19 PM EDT [facility] IgM 174 23 - 259 mg/dL LAB CHEMISTRY METHOD 12/11/2024 3:19 PM EDT [facility] Blood Venous blood specimen / Unknown Venipuncture / Unknown 12/11/2024 2:00 PM EDT 12/11/2024 2:09 PM EDT us Joan Root MD LAB BLOOD ORDERABLES Final Resul t Performing Organization Address [facility] Co de Phone Number [facility] [address] [place] [address], [place] [phone] * High sensitivity CRP (12/11/2024 2:00 PM EDT) Pathologist [facility] CRP, High Sensitivity 1.08 mg/L LAB CHEMISTRY METHOD 12/11/2024 3:12 PM EDT [facility] Comment: Cardio CRP Relative Risk Categories Low <1.0 mg/L Average 1.0 - 3.0 mg/L High >3.0 mg/L Levels >10.0 mg/L should be ignored and repeated when the patient is stable and infection or inflammation is ruled out. HRT (estrogens) consistently increase cardio CRP levels. Risk estimates for women on HRT may need to be calibrated downward. Blood Venous blood specimen / Unknown Venipuncture / Unknown 12/11/2024 2:00 PM EDT 12/11/2024 2:09 PM EDT Joan Root MD LAB BLOOD ORDERABLES Final Resul t Performing Organization Address [facility] Co de Phone Number [facility] [address] [place] [address], [place] [phone] * ECG 12 lead (12/11/2024 1:10 PM EDT) [facility] Ventricular Rate ECG 82 BPM GEMUSE Atrial Rate 82 BPM GEMUSE QRS Duration 84 ms GEMUSE Q-T Interval 366 ms GEMUSE QTc 427 ms GEMUSE R [place] 28 degrees GEMUSE T [place] 48 degrees GEMUSE ECG Interpretation Sinus rhythm with frequent Premature ventricular complexes Otherwise normal ECG When compared with ECG of 11-OCT-2020 09:31, Premature ventricular complexes are now Present Confirmed by Flor ROOT YUFENG ([id number]) on 12/11/2024 2:14:22 PM GEMUSE 12/11/2024 1:10 PM EDT 12/11/2024 2:14 PM EDT Joan Root MD ECG ORDERABLES Final Result Performing Organization Address [facility] de Phone Number GEMUSE * Interferon gamma interpretation (12/06/2024 8:03 AM EDT) [facility] Quantiferon Plus Interpretation Negative Negative LAB CHEMISTRY METHOD 12/07/2024 10:54 AM EDT [facility] Blood Venous blood specimen / Unknown Venipuncture / Unknown 12/06/2024 8:03 AM EDT 12/06/2024 8:03 AM EDT Lizzy Mittal MD LAB BLOOD ORDERABLES Final Result Performing Organization Address City/[facility]/ZIP Co de Phone Number [facility] [address] [place] [address], [place] [phone] * Interferon gamma antigen 2 (12/06/2024 8:03 AM EDT) Blood Venous blood specimen / Unknown Venipuncture / Unknown 12/06/2024 8:03 AM EDT 12/06/2024 8:03 AM EDT us Lizzy Mittal MD LAB BLOOD ORDERABLES Final Result Performing Organization Address City/[facility]/ZIP Co de Phone Number [facility] [address] [place] [address], [place] [phone] * Interferon gamma antigen 1 (12/06/2024 8:03 AM EDT) Blood Venous blood specimen / Unknown Venipuncture / Unknown 12/06/2024 8:03 AM EDT 12/06/2024 8:03 AM EDT us Lizzy Mittal MD LAB BLOOD ORDERABLES Final Result Performing Organization Address [facility] Co de Phone Number [facility] [address] [place] [address], [place] [phone] * Interferon gamma mitogen (12/06/2024 8:03 AM EDT) Blood Venous blood specimen / Unknown Venipuncture / Unknown 12/06/2024 8:03 AM EDT 12/06/2024 8:03 AM EDT us Lizzy Mittal MD LAB BLOOD ORDERABLES Final Result Performing Organization Address City/[facility]/ZIP Co de Phone Number [facility] [address] [place] [address], [place] [phone] * Interferon gamma NIL (12/06/2024 8:03 AM EDT) Blood Venous blood specimen / Unknown Venipuncture / Unknown 12/06/2024 8:03 AM EDT 12/06/2024 8:03 AM EDT us Lizzy Mittal MD LAB BLOOD ORDERABLES Final Result Performing Organization Address City/[facility]/ZIP Co de Phone Number [facility] [address] [place] [address], [place] [phone] * (ABNORMAL) Thyroid stimulating hormone with reflex to free t4 and free t3 (12/06/2024 8:03 AM EDT) TSH 4.76(H) 0.40 - 4.00 mcIU/mL LAB CHEMISTRY METHOD 12/06/2024 12:41 PM EDT [facility] Blood Venous blood specimen / Unknown Venipuncture / Unknown 12/06/2024 8:03 AM EDT 12/06/2024 8:03 AM EDT Lizzy Mittal MD LAB BLOOD ORDERABLES Final Result Performing Organization Address [facility]/ZIP Co de Phone Number [facility] [address] [place] [address], [place] [phone] * Free thyroxine with reflex to free triiodothyronine (12/06/2024 8:03 AM EDT) Free T4 1.38 0.70 - 1.80 ng/dL LAB CHEMISTRY METHOD 12/06/2024 1:54 PM EDT [facility] Blood Venous blood specimen / Unknown Venipuncture / Unknown 12/06/2024 8:03 AM EDT 12/06/2024 8:03 AM EDT Lizzy Mittal MD LAB BLOOD ORDERABLES Final Result [facility] [address] [place] [address], [place] [phone] * Lipid panel with reflex to direct LDL (12/06/2024 8:03 AM EDT) Cholesterol 149 0 - 200 mg/dL LAB CHEMISTRY METHOD 12/06/2024 11:35 AM EDT [facility] Triglycerides 129 0 - 150 mg/dL LAB CHEMISTRY METHOD 12/06/2024 11:35 AM EDT [facility] HDL 59 >=40 mg/dL LAB CHEMISTRY METHOD 12/06/2024 11:35 AM EDT [facility] LDL Calculated 64 0 - 100 mg/dL LAB CHEMISTRY METHOD 12/06/2024 11:35 AM EDT [facility] VLDL Cholesterol Ran[place] 25.8 mg/dL LAB CHEMISTRY METHOD 12/06/2024 11:35 AM EDT [facility] Non HDL Chol. (LDL+VLDL) 90 <145 mg/dL LAB CHEMISTRY METHOD 12/06/2024 11:35 AM EDT [facility] Chol/HDL Ratio 2.5 0.0 - 4.4 LAB CHEMISTRY METHOD 12/06/2024 11:35 AM [facility] Blood Venous blood specimen / Unknown Venipuncture / Unknown 12/06/2024 8:03 AM EDT 12/06/2024 8:03 AM EDT us Lizzy Mittal MD LAB BLOOD ORDERABLES Final Result [facility] [address] [place] [address], [place] [phone] * (ABNORMAL) CBC auto differential (12/06/2024 8:03 AM EDT) WBC 3.6(L) 4.8 - 10.8 K/mcL LAB HEMETOLOGY METHOD 12/06/2024 11:04 AM EDT [facility] RBC 4.00 3.80 - 4.80 M/mcL LAB HEMETOLOGY METHOD 12/06/2024 11:04 AM EDT [facility] Hemoglobin 9.9(L) 11.5 - 16.0 g/dL LAB HEMETOLOGY METHOD 12/06/2024 11:04 AM EDT [facility] Hematocrit 34.0(L) 35.0 - 47.0 % LAB HEMETOLOGY METHOD 12/06/2024 11:04 AM [facility] MCV 85.4 79.0 - 98.0 FL LAB HEMETOLOGY METHOD 12/06/2024 11:04 AM [facility] MCH 24.9(L) 27.0 - 32.0 pcg LAB HEMETOLOGY METHOD 12/06/2024 11:04 AM [facility] MCHC 29.1(L) 32.0 - 37.0 g/dL LAB HEMETOLOGY METHOD 12/06/2024 11:04 AM [facility] RDW 16.0(H) 11.0 - 15.0 % LAB HEMETOLOGY METHOD 12/06/2024 11:04 AM [facility] Platelets 197 130 - 400 K/mcL LAB HEMETOLOGY METHOD 12/06/2024 11:04 AM [facility] MPV 11.8(H) 7.0 - 11.0 FL LAB HEMETOLOGY METHOD 12/06/2024 11:04 AM [facility] NRBC 0.0 <1.0 % LAB HEMETOLOGY METHOD 12/06/2024 11:04 AM [facility] NRBC Absolute 0.00 <0.10 K/mcL LAB HEMETOLOGY METHOD 12/06/2024 11:04 AM [facility] Neutrophils Relative 65.7 % LAB HEMETOLOGY METHOD 12/06/2024 11:04 AM [facility] Lymphocytes Relative 16.2 % LAB HEMETOLOGY METHOD 12/06/2024 11:04 AM [facility] Monocytes Relative 11.8 % LAB HEMETOLOGY METHOD 12/06/2024 11:04 AM [facility] Eosinophils Relative 5.2 % LAB HEMETOLOGY METHOD 12/06/2024 11:04 AM EDT [facility] Basophils Relative 0.8 % LAB HEMETOLOGY METHOD 12/06/2024 11:04 AM EDT [facility] Immature Granulocytes Relative 0.3 % LAB HEMETOLOGY METHOD 12/06/2024 11:04 AM EDT [facility] Neutrophils Absolute 2.39 1.50 - 7.00 K/mcL LAB HEMETOLOGY METHOD 12/06/2024 11:04 AM EDT [facility] Lymphocytes Absolute 0.59(L) 1.00 - 5.00 K/mcL LAB HEMETOLOGY METHOD 12/06/2024 11:04 AM EDT [facility] Monocytes Absolute 0.43 0.20 - 1.00 K/mcL LAB [facility]ETOLOGY [facility] Eosinophils Absolute 0.19 0.00 - 0.50 K/mcL LAB HEMETOLOGY METHOD 12/06/2024 11:04 AM EDT [facility] Basophils Absolute 0.03 0.00 - 0.20 K/mcL LAB HEMETOLOGY METHOD [facility] Immature Granulocytes Absolute 0.01 0.00 - 0.03 K/mcL LAB HEMETOLOGY METHOD 12/06/2024 11:04 AM EDT [facility] Blood Venous blood specimen / Unknown Venipuncture / Unknown 12/06/2024 8:03 AM EDT 12/06/2024 8:03 AM EDT us Lizzy Mittal MD LAB BLOOD ORDERABLES Final Result [facility] [address] [place] [address], * (ABNORMAL) Iron and TIBC (12/06/2024 8:03 AM EDT) Iron 28(L) 40 - 150 mcg/dL LAB CHEMISTRY METHOD 12/06/2024 11:35 AM EDT [facility] TIBC 589(H) 250 - 450 mcg/dL LAB CHEMISTRY METHOD 12/06/2024 11:35 AM EDT [facility] Iron Saturation 5(L) 15 - 50 % LAB CHEMISTRY METHOD 12/06/2024 11:35 AM EDT [facility] Blood Venous blood specimen / Unknown Venipuncture / Unknown 12/06/2024 8:03 AM EDT 12/06/2024 8:03 AM EDT Lizzy Mittal MD LAB BLOOD ORDERABLES Final Result Performing Organization Address [facility]/ZIP Co de Phone Number [facility] [address] [place] [address], [place] [phone] * Triiodothyronine free (12/06/2024 8:03 AM EDT) Pathologist [facility] T3, Free 304 230 - 420 pcg/dL LAB CHEMISTRY METHOD 12/06/2024 2:20 PM EDT [facility] Blood Venous blood specimen / Unknown Venipuncture / Unknown 12/06/2024 8:03 AM EDT 12/06/2024 8:03 AM EDT Lizzy Mittal MD LAB BLOOD ORDERABLES Final Result [facility] [address] [place] [address], [place] [phone] * (ABNORMAL) B-type natriuretic peptide (12/06/2024 8:03 AM EDT) BNP 220(H) <=100 pcg/mL LAB CHEMISTRY METHOD 12/06/2024 11:26 AM EDT [facility] Blood Venous blood specimen / Unknown Venipuncture / Unknown 12/06/2024 8:03 AM EDT 12/06/2024 8:03 AM EDT Lizzy Mittal MD LAB BLOOD ORDERABLES Final Result [facility] [address] [place] [address], [place] [phone] * Vitamin B12 (12/06/2024 8:03 AM EDT) [facility] Vitamin B-12 366 250 - 900 pcg/mL LAB CHEMISTRY METHOD 12/06/2024 11:35 AM EDT [facility] Blood Venous blood specimen / Unknown Venipuncture / Unknown 12/06/2024 8:03 AM EDT 12/06/2024 8:03 AM EDT Lizzy Mittal MD LAB BLOOD ORDERABLES Final Result Performing Organization Address City/[facility]/ZIP Co de Phone Number [facility] [address] [place] [address], [place] [phone] * (ABNORMAL) Comprehensive metabolic panel (12/06/2024 8:03 AM EDT) [facility] Sodium 139 133 - 145 mmol/L LAB CHEMISTRY METHOD 12/06/2024 11:35 AM [facility] Potassium 4.1 3.5 - 5.5 mmol/L LAB CHEMISTRY METHOD 12/06/2024 11:35 AM T [facility] Chloride 107 96 - 110 mmol/L LAB CHEMISTRY METHOD 12/06/2024 11:35 AM EDT [facility] CO2 26 21 - 32 mmol/L LAB CHEMISTRY METHOD 12/06/2024 11:35 AM [facility] Anion Gap 6 3 - 11 LAB CHEMISTRY METHOD 12/06/2024 11:35 AM EDT [facility] Glucose 94 70 - 100 mg/dL LAB CHEMISTRY METHOD 12/06/2024 11:35 AM [facility] BUN 17 5 - 25 mg/dL LAB CHEMISTRY METHOD 12/06/2024 11:35 AM [facility] Creatinine 1.32(H) 0.50 - 1.10 mg/dL LAB CHEMISTRY METHOD 12/06/2024 11:35 AM [facility] eGFR 42(L) >=60 mL/min/1. 73m2 LAB CHEMISTRY METHOD 12/06/2024 11:35 AM [facility] Comment:Calculation based on the Chronic Kidney Disease Epidemiology Collaboration (CKD-EPI) equation refit without adjustment for race. BUN/Creatinine Ratio 12.9 LAB CHEMISTRY METHOD 12/06/2024 11:35 AM [facility] Calcium 9.1 8.5 - 10.5 mg/dL LAB CHEMISTRY METHOD 12/06/2024 11:35 AM [facility] AST (SGOT) 32 10 - 42 unit/L LAB CHEMISTRY METHOD 12/06/2024 11:35 AM [facility] ALT (SGPT) 40 10 - 60 unit/L LAB CHEMISTRY METHOD 12/06/2024 11:35 AM [facility] Alkaline Phosphatase 55 42 - 121 unit/L LAB CHEMISTRY METHOD 12/06/2024 11:35 AM [facility] Total Protein 6.4 6.0 - 8.0 g/dL LAB CHEMISTRY METHOD 12/06/2024 11:35 AM [facility] Albumin 3.4 3.2 - 5.0 g/dL LAB CHEMISTRY METHOD 12/06/2024 11:35 AM [facility] Total Bilirubin 0.4 0.0 - 1.4 mg/dL LAB CHEMISTRY METHOD 12/06/2024 11:35 AM [facility] Blood Venous blood specimen / Unknown Venipuncture / Unknown 12/06/2024 8:03 AM EDT 12/06/2024 8:03 AM EDT us Lizzy Mittal MD LAB BLOOD ORDERABLES Final Result [facility] ([facility]) [facility] [address] [facility] [place] [address], [place] [phone] * (ABNORMAL) TRANSTHORACIC ECHOCARDIOGRAM (TTE) COMPLETE (11/27/2024 8:08 AM EDT) LV EDV (A2C) 84 mL CV PACS LV EDV (A4C) 86 mL CV PACS LV Diastolic Volume (BP) 86 46 - 106 mL CV PACS LV ESV (A2C) 49 mL CV PACS LV ESV (A4C) 43 mL CV PACS LV Systolic Volume (BP) 48(A) 14 - 42 mL CV PACS IVSD 1.0(A) 0.6 - 0.9 cm CV PACS LVIDD 5.1 3.8 - 5.2 cm CV PACS LVIDS 4.0(A) 2.2 - 3.5 cm CV PACS LVOT Diameter 2.2 cm CV PACS LVOT Mean Yoel 0.6 m/s CV PACS LVOT Mean Grad 2 mmHg CV PACS LVOT Peak VTI 15.2 cm CV PACS LVOT Peak Yoel 1.0 m/s CV PACS LVOT Peak Gradient 4 mmHg CV PACS LVPWD 1.1(A) 0.6 - 0.9 cm CV PACS MV E' Tissue Velocity Lateral 6 cm/s CV PACS MV E' Tissue Velocity Septal 5 cm/s CV PACS Ejection Fraction (A2C) 41 % CV PACS Ejection Fraction (A4C) 50 % CV PACS Ejection Fraction (BP) 44 % CV PACS LVOT Area 3.8 cm2 CV PACS LVOT Stroke Volume 58 mL CV PACS Left Atrium Minor [place] 4.9 cm CV PACS Left Atrium Major [place] 5.5 cm CV PACS LA Area Sys (A2C) 21 cm2 CV PACS LA Area Sys (A4C) 24 cm2 CV PACS LA Volume (BP) 83 mL CV PACS RA Area 9.8 cm2 CV PACS RA 2D Volume 16 mL CV PACS Aortic Sinus Valsalva 2.8 cm CV PACS Ascending Aorta 3.6 cm CV PACS MR PISA Nyquist Yoel 37 cm/s CV PACS PISA MR Radius 0.80 cm CV PACS MR VTI 171.0 cm CV PACS MR PISA Max Velocity 5.4 m/s CV PACS MR Peak Gradient 118 mmHg CV PACS MV Deceleration [place] 4.1 m/s2 CV PACS E Wave Deceleration Time 194 119 - 242 ms CV PACS MV PHT 57 ms CV PACS MV Peak A Yoel 1.14 m/s CV PACS MV Peak E Yoel 0.81 m/s CV PACS PISA MR EROA 0.28 cm2 CV PACS MV Area PHT 3.9 cm2 CV PACS PISA Regurgitant Volume 48 mL CV PACS PV Acceleration Time 77 ms CV PACS PV Acceleration Time 69 ms CV PACS PV Acceleration Time 73 ms CV PACS RV Diastolic Basal Dimension 3.2 2.5 - 4.1 cm CV PACS TAPSE 26 mm CV PACS TR Peak Velocity 3.30 m/s CV PACS TR Peak Gradient 44 mmHg CV PACS E/E' Ratio Septal 16 CV PACS E/E' Ratio Averaged 15 CV PACS Relative Wall Thickness ratio 0.43 CV PACS FS 22 % CV PACS LV Mass 2D 201 g CV PACS LVOT flow 228 mL/s CV PACS E/A Ratio 0.7 CV PACS E/E' Ratio Lateral 14 CV PACS BSA 1.69 m2 CV PACS LV Diastolic Volume Index (BP) 51 29 - 61 mL/m2 CV PACS LV Systolic Volume Index (BP) 29(A) 8 - 24 mL/m2 CV PACS LV EDV Index (A4C) 51 mL/m2 CV PACS LV ESV Index (A4C) 26 mL/m2 CV PACS LV EDV Index (A2C) 50 mL/m2 CV PACS LV ESV Index (A2C) 29 mL/m2 CV PACS LA Volume Index (BP) 50 mL/m2 CV PACS LVIDD Index 3.05 cm/m2 CV PACS LVIDS Index 2.40 cm/m2 CV PACS LV Mass Index 2D 120(A) 44 - 88 g/m2 CV PACS LVOT Stroke Index 35 mL/m2 CV PACS RA 2D Volume Index 10(A) 15 - 27 mL/m2 CV PACS Ascending Aorta Index 2.16 cm/m2 CV PACS Right Ventricular Peak Systolic Pressure 52 mmHg CV PACS Est. RA Pressure 8 mmHg CV PACS Anatomical Region Laterality Modality Ultrasound Narrative 11/28/2024 12:55 PM EDT There is mild LVH. The end-diastolic diameter is normal. The end-systolic diameter is at the upper limits of normal. There is mild global hypokinesis with an EF of about 45% and evidence of diastolic dysfunction with increased left atrial pressure Normal RV size and function. Severely dilated left atrium and normal right atrium. Thickened mitral leaflets. At least moderate mitral insufficiency. No prior echo for comparison. Left Ventricle Left ventricle cavity size is normal. Although the end-systolic diameter is just at the upper limits of normal. There is mild hypertrophy. Systolic function is mildly decreased with an ejection fraction of 40-45%. There are no regional LV wall motion abnormalities. Mild global LV hypokinesis is present. There is Grade III (severe) diastolic dysfunction, restrictive filling. Right Ventricle Right ventricle cavity appears normal. Systolic function is normal. Normal TAPSE (> 17 mm). Left Atrium Left atrium cavity is severely dilated. Right Atrium Right atrium cavity is normal. IVC/SVC RA pressures is estimated to be 8 mmHg (IVC diameter <21 mm and decreases <50% during inspiration). Mitral Valve The leaflets are moderately thickened and exhibit normal excursion. There is slight bowing of the leaflets but no true prolapse. There is at least moderate regurgitation. I did not see flow reversal in the pulmonary veins. The [place] ER OA was 0.28 cm . Regurgitant volume 48 mL. These would suggest moderate insufficiency There is no evidence of mitral valve stenosis. Tricuspid Valve The leaflets exhibit normal excursion. There is mild regurgitation. There is no evidence of tricuspid valve stenosis. The right ventricular systolic pressure is elevated. Aortic Valve The aortic valve is trileaflet. The leaflets are not thickened and exhibit normal excursion. There is no regurgitation or stenosis. Pulmonic Valve The pulmonic valve was not well visualized. No significant pulmonic valve regurgitation. No significant pulmonary valve stenosis noted. Ascending Aorta The ascending aorta is 3.6 cm. Pericardium Pericardium appears normal. Study Details Overall the study quality was adequate. us Lizzy Mittal MD CV ECHO PROCEDURES Final Re sult * Pulmonary function testing: Spirometry with Bronchodilator, Spirometry (11/22/2024 9:13 AM EDT) Impressions Lashaun Schuster MD - 11/22/2024 9:13 AM EDT Pulmonary function test interpretation. Spirometry done today reveals FEV1 of 2.32 which is hide and 70% of the predicted value, FVC is 2.82 which is an in 6% of the predicted value, FEV1 to FVC ratio 79% of the predicted value, there is no bronchodilator response. Flow volume is consistent with normal pattern. This study is consistent with normal spirometry, however of diagnosis of asthma is in question suggest methacholine challenge test. Clinical correlation however is recommended. Lizzy Mittal MD PFT ORDERABLES Final Resul t * CT Chest wo Contrast (11/17/2024 10:38 AM EDT) Anatomical Region Laterality Modality Body Computed Tomogra phy 11/17/2024 2:29 PM EDT Impressions 11/17/2024 2:43 PM EDT 1. No acute thoracic pathology. 2. Large hiatal hernia with a large portion of the stomach within the intrathoracic cavity. -------- FINAL REPORT -------- Dictated By: Placido Zacarias Dictated Date: 11/17/2024 14:29 ET Assigned Physician: Placido Zacarias Reviewed and Electronically Signed By: Placido Zacarias Signed Date: 11/17/2024 14:43 ET Workstation ID: [id number] Transcribed By: Self Edit Transcribed Date: 11/17/2024 14:29 ET Narrative 11/17/2024 2:[address] CHEST HISTORY: chronic cough. TECHNIQUE: Chest CT was performed utilizing contiguous noncontrasted axial images from the thoracic inlet to below the diaphragm. The images were reformatted in the coronal and sagittal planes. Radiation dosage is 6.88mGy COMPARISON: Chest radiograph from 11/10/2024 FINDINGS: Base of neck: The thyroid and base of the neck are within normal limits. Mediastinum: The heart is normal in size, no pericardial effusion. No mediastinal lymphadenopathy. Lungs: Evaluation of the lung parenchyma demonstrates apical pleural-parenchymal scarring. No focal consolidation or effusion. 2 mm solid subpleural right upper lobe nodule (series 2, image 63). 3 mm solid nodule along the right fissure (series 2, image 136). 4 mm solid subpleural medial right lower lobe nodule (series 2, image 238). The trachea and mainstem bronchi are patent. Upper Abdomen: Limited visualization of the extreme upper abdomen demonstrates a large hiatal hernia with a large portion of the stomach in the intrathoracic cavity. MSK: Soft tissues are normal. The osseous structures are intact. Procedure Note Placido Zacarias MD - 11/17/2024 CT CHEST HISTORY: chronic cough. TECHNIQUE: Chest CT was performed utilizing contiguous noncontrasted axialimages from the thoracic inlet to below the diaphragm. The images werereformatted in the coronal and sagittal planes. Radiation dosage is6.88mGy COMPARISON: Chest radiograph from 11/10/2024 FINDINGS: Base of neck: The thyroid and base of the neck are within normal limits. Mediastinum: The heart is normal in size, no pericardial effusion. Nomediastinal lymphadenopathy. Lungs: Evaluation of the lung parenchyma demonstrates apicalpleural-parenchymal scarring. No focal consolidation or effusion. 2 mmsolid subpleural right upper lobe nodule (series 2, image 63). 3 mm solidnodule along the right fissure (series 2, image 136). 4 mm solidsubpleural medial right lower lobe nodule (series 2, image 238). Thetrachea and mainstem bronchi are patent. Upper Abdomen: Limited visualization of the extreme upper abdomendemonstrates a large hiatal hernia with a large portion of the stomach inthe intrathoracic cavity. MSK: Soft tissues are normal. The osseous structures are intact. IMPRESSION: 1. No acute thoracic pathology. 2. Large hiatal hernia with a large portion of the stomach within theintrathoracic cavity. -------- FINAL REPORT -------- Dictated By: Placido Zacarias Dictated Date: 11/17/2024 14:29 ET Assigned Physician: Placido Zacarias Reviewed and Electronically Signed By: Placido Zacarias Signed Date: 11/17/2024 14:43 ET Workstation ID: [id number] Transcribed By: Self Edit Transcribed Date: 11/17/2024 14:29 ET us Lizzy Mittal MD IMG CT PROCEDURES Final Res ult * LUIGI SCREENING DIGITAL (09/10/2017 4:30 PM EDT) Anatomical Region Laterality Modality Mammography 09/10/2017 1:23 PM EDT Narrative 09/10/2017 4:30 PM EDT [facility] Diagnostic Imaging Department [address] [place], [place] [id number] Patient: RONA BROWN Keya /Age/Sex: 1950 - 67 - F Unit#: [id number] Location/Status: [facility] Mnemonic/Ordering Site: [facility] Ordering Physician: NICOLASA SOTO MD Luigi Screening Digital - 09/10/17 - 1344 EXAM: [facility] Screening Digital EXAM DATE AND TIME: [...] mammogram BILATERAL in 1 year. COMMENTS: None. [id number], 83511, 2702F, 3900F Dictating Physician: CARLOS MESA MD Electronically Signed by: CARLOS MESA MD Dic Date/Time: 09/10/17 1621 Sign date/Time: 09/10/17 1630 Procedure Note Carlos Mesa MD - 05/12/2022 [facility] Diagnostic Imaging Department [address] [place] [id number] Patient: RONA BROWN Keya /Age/Sex: 1950 67 - F Unit#: [id number] Location/Status: [facility] CLI Mnemonic/Ordering Site: [facility] Ordering Physician: NICOLASA SOTO MD [facility] Screening Digital - 09/10/17 - 1344 EXAM: [facility] Screening Digital EXAM DATE AND TIME: 09/10/2017 1:44 PM HISTORY: Previous benign bilateral breast procedures, the most recent [id number]. First degree family history of breast cancer [...] mammogram BILATERAL in 1 year. COMMENTS: None. [id number], [id number], 3342F, [id number] Dictating Physician: CARLOS MESA MD Electronically Signed by: CARLOS MESA MD Dic Date/Time: 09/10/17 1621 Sign date/Time: 09/10/17 1630 us Nicolasa Soto IMG BI PROCEDURES Final Result * LUIGI DEXA AXIAL SKELETON (09/02/2017 1:58 PM EDT) Anatomical Region Laterality Modality Mammography 09/02/2017 12:5 4 PM EDT Narrative 09/02/2017 1:58 PM EDT [facility] Diagnostic Imaging Department [address] [place] [address] Patient: RONA BROWN Keya /Age/Sex: 1950 - 67 - F Unit#: [id number] [facility] Ordering Physician: NICOLASA SOTO MD Luigi Dexa Axial Skeleton - 09/02/17 - 1327 HISTORY: The patient is a 67-year-old postmenopausal female with clinical concern for metabolic bone disease. FINDINGS: Dual [...] 89% of that of age matched controls. This yields a T-score of -2.3 and a Z-score of -0.7 which is diagnostic of osteopenia. IMPRESSION: 1. Osteopenia. There has been a decrease of 8.3% in bone mineral density in the lumbar spine since the prior examination of 01/22/2009. There has been a decrease of 4.3% in bone mineral density in the right femur and a decrease of 23.2% in bone mineral density in the left femur. 2. FRAX analysis yields a 10-year probability of major osteoporotic fracture of 12.9% and a 10-year probability of hip fracture of 2.8%. Code 41531 Dictating Physician: NAHUN GONZALEZ MD Electronically Signed by: NAHUN GONZALEZ MD Dic Date/Time: 09/02/17 1356 Sign date/Time: 09/02/17 1358 Procedure Note Nahun Gonzalez MD - 05/12/2022 [facility] Diagnostic Imaging Department [address] [place] [address] Patient: RONA BROWN/Age/Sex: 1950 - 67 - F Unit#: [id number] Location/Status[facility] CLI [facility] Ordering Physician: NICOLASA SOTO MD Luigi Dexa Axial Skeleton - 09/02/17 [...] density of the femurs bilaterally is 0.721 gm/[id number] is 72% of that of young normals [...] probability of hip fracture of 2.8%. Code 26557 Dictating Physician: NAHUN GONZALEZ MD Electronically Signed by: NAHUN GONZALEZ MD Dic Date/Time: 09/02/17 1353 Sign date/Time: 09/02/17 5804 Nicolasa Soto IMG BI PROCEDURES Final Result from Last 3 Months or Most Recently Relevant to Health [place] [id number] [employer] MEDICARE Care Teams Shot Tube Machine Tender Relationship Specialty Start Date End Date Lizzy Mittal MD [address] [place] [address] PCP - General Internal Medicine 11/07/24
--- OUTSIDE RECORDS SUMMARY | 2025-02-15 12:07 | XMS_ITS | Clinical Summary ---
Author Organization [facility] Address [address] [place] [address] Care Team Providers Care Child Guidance Counselor Name Role Phone Nicolasa Soto MD Primary Care Provider [phone] Medications Medication Sig Dispensed Refills Start Date [...] Vaccine (1 of 1 - PCV) 2014 RSV Adult > 60+ Yrs or Pregn ant (1 - 1-dose 75+ series) 2024 Influenza Vaccine (#1) 2025 Hepatitis B Vaccines Aged Out No long er eligible based on patient's age to complete this topic RSV Ped < 20 months Aged Out No longe r eligible based on patient's age to complete this topic Care Teams Child Guidance Counselor Relationship Specialty Start Date End Date Nicolasa Soto MD [address] [place] [address] PCP - General Internal Medicine 05/26/17
== END 2025-02-15 10:38 | disposition home or self-care (01) ==
LOC: HO.ENCR 10:02
PROVIDERS: PCP Nurse Practitioner Family; Visit Provider Internal Medicine Endocrinology, Diabetes & Metabolism
DX: M81.0 Age-related osteoporosis without current pathological fracture (principal)
CPT/HCPCS: 99213

== ENCOUNTER → 2025-02-15 10:02 | Outpatient (BNVA) | payer MEDICARE, SELFPAY | PROVIDERS: PCP Nurse Practitioner Family; Visit Provider Internal Medicine Endocrinology, Diabetes & Metabolism | DX: M81.0 Age-related osteoporosis without current pathological fracture (principal) | CPT/HCPCS: 99212 ==

== ENCOUNTER 2025-02-20 10:27 | Outpatient (REF) | payer MEDICARE, SELFPAY ==
--- OUTSIDE RECORDS SUMMARY | 2025-02-20 11:39 | XMS_ITS | Clinical Summary ---
Author Organization [facility] 299 [facility] Address [address] [place] [address] Phone Care Team Providers Care Decaler Name Role Phone Lizzy Mittal MD Primary [...] sensitivity CRP; Future Sedimentation rate, automated; Future Grass [place]-lambda free light chains, quantitative; Future Immunofixation electrophoresis [...] CVA (cerebral vascular accident) (CMS/HCC V24, C NH/HCC V28) Overview (01/04/2025): DX:CVA (cerebral vascular accident) (HCC) History of stomach ulcers Overview (01/04/2025): DX:History of stomach ulcers Encounters Date Type Department Care Team Description 01/30/2025 1:30 PM EDT Office Visit [facility] Cardiology [facility] [address] [facility] [address] [place] [address] Joan Root MD Cardiomyopathy, unspecified type (CMS/HCC V24, CMS/HCC V28) (Primary Dx); PVC (premature ventricular contraction) 01/24/2025 8:30 AM EDT Office Visit [address] [phone] Lizzy Mittal MD Depression, unspecified depression type (Primary Dx); Remote history of stroke; Crohn's disease with complication, unspecified gastrointestinal tract location (CMS/HCC V24, CMS/HCC V28); Cardiomyopathy, unspecified type (CMS/HCC V24, CMS/HCC V28); Mitral valve insufficiency, unspecified etiology; Restless leg syndrome 01/23/2025 Telephone [facility] Cardiology [facility] [address] [facility] 154 [place] [address] Joan Root MD 01/17/2025 Telephone [facility] Cardiology [facility] [address] [facility] [address] [place] [address] Lisa River MA 01/16/2025 Telephone [facility] [address] [place] [facility] 154 [place] [address] Joan Root MD 01/15/2025 Telephone Gastroenterology - 299 [facility] 299 [facility] [address] [place] [phone] Reyna Velarde PA 01/12/2025 2:00 PM EDT Office Visit [facility] Hematology Oncology [address] [place] [phone] Gideon Nunez MD Iron deficiency anemia due to chronic blood loss (Primary Dx); Anemia, unspecified type 01/05/2025 10:10 AM EDT Office Visit Gastroenterology - [address] [facility] [address] [place] [address] Reyna Velarde PA Hiatal hernia (Primary Dx); Gastroesophageal reflux disease without esophagitis; Irritable bowel syndrome, unspecified type 01/01/2025 9:00 AM EDT Ancillary Procedure [facility] Cardiology [facility] 101 300 [facility] 101 [place] [address] Cardiomyopathy, unspecified type (CMS/HCC V24, CMS/HCC V28) 12/28/2024 11:30 AM EDT Consult Thoracic Surgery - [place] 299 [facility] [address] [place] [phone] Caroline Reilly MD Pulmonary nodules (Primary Dx); Pulmonary nodule; History of repair of hiatal hernia 12/21/2024 9:30 AM EDT Ancillary Procedure [facility] 101 300 [facility] 101 [place] [address] PVC's (premature ventricular contractions) 12/19/2024 10:09 AM EDT - 12/19/2024 11:59 PM EDT Hospital Encounter Radiology Department - [address] [phone] Elevated serum creatinine Discharge Disposition: Home or Self Care 12/13/2024 8:30 AM EDT Office Visit Adult Medicine [address] [place] [address] [phone] Lizzy Mittal MD Mitral valve insufficiency, unspecified [...] nodule 12/11/2024 1:00 PM EDT Office Visit [facility] [address] [place] [phone] Joan Roto MD Cardiomyopathy, unspecified type (CMS/HCC V24, CMS/HCC V28) (Primary Dx); Mitral valve insufficiency, unspecified etiology; PVC's (premature ventricular contractions); PVC (premature ventricular contraction) 11/27/2024 7:30 AM EDT Ancillary Procedure [facility] Card[facility] [address] [place] [phone] Cardiomegaly 11/22/2024 9:00 AM EDT Ancillary Procedure Pulmonology - [place] [address] [facility] [address] [place] [phone] Chronic cough (Primary Dx) from Last 3 Months Immunizations Immunization Administration Dates Next Due Tdap Tetanus diptheria acell ular pertussis (Boostrix; Adacel) 7yo and older 11/15/2024 Surgical History Surgery Date Site/Laterality Comments OTHER SURGICAL HISTORY N/A PROCEDURE: DC LAPS SURG CHOLECYSTECTOMY W/CHOLANGIOGRAPHY CHOLECYSTECTOMY PROCEDURE: DC LAPAROSCOPY SURG CHOLECYSTECTOMY BOWEL RESECTION PROCEDURE: HISTORICAL BOWEL RESECTION HYSTERECTOMY PROCEDURE: HISTORICAL HYSTERECTOMY OTHER SURGICAL HISTORY PROCEDURE: DC FISSURECTOMY INCL SPHINCTEROTOMY WHEN PERFORMED OTHER SURGICAL HISTORY PROCEDURE: DC EXC CYST/ABERRANT BREAST TISSUE OPEN 1/> LESION [...] drink = 0.6 oz pur e alcohol) [facility] Instability Answer Date Recorde d Are you [...] care for your loved ones. For example, child care center administrator or elderly care for an older adult? [...] Date Recorded What is your living situation? Unrecognized valu e 12/12/2024 Comments Unknown Sex and Gender Information [...] Info) Description 04/04/2025 10:30 AM EST Appointment [facility] Endoscopy [address] [place] [address] Philip Amin MD [address] [address] 04/13/2025 11:00 AM EST Office Visit [facility] Hematology Oncology [address] [place] [address] Gideon Nunez MD [address] [place] [address] 07/25/2025 9:45 AM EST Office Visit Adult Medicine [facility] [address] [place] [address] Lizzy Mittal MD 444 [place] [address] 11/27/2025 10:00 AM EDT Ancillary Procedure [facility] [address] [place] [address] Health Maintenance Due Date Last Done Comments Zoster Vaccines (2 of 2) 12/27/2024 11/01/2024 Influenza Vaccine (#1) 2025 , 02/15/2023, 03/23/2022, Additional history exists Colorectal Cancer Screening: Colonoscopy 05/24/2025 Postponed from 1949 (Patient Refused) Hepatitis C Screening 05/24/2025 Postpo [...] 12/11/2024 2:02 PM EDT Elevated serum creatinine DC IMMUNOFIXATION ELECTROPHORESIS SERUM Routine 12/11/2024 2:00 PM [...] Routine 11/22/2024 9:13 AM EDT Chronic cough [facility] SCREENING DIGITAL Routine 09/10/2017 4:30 PM EDT Encounter for screening mammogram for malignant neoplasm of breast [facility] DEXA AXIAL SKELETON Routine 09/03/19 18 1:58 PM EDT Other specified disorders of bone density and structure, unspecified site from Last 3 Months or Most Recently Relevant to Health Maintenance Results * Thyroid stimulating hormone (01/24/2025 9:17 AM EDT) [facility] TSH 3.34 0.40 - 4.00 mcIU/mL LAB CHEMISTRY METHOD 01/24/2025 12:52 PM EDT [facility] Blood Venous blood specimen / Unknown Venipuncture / Unknown 01/24/2025 9:17 AM EDT 01/24/2025 9:17 AM EDT us Lizzy Mittal MD LAB BLOOD ORDERABLES Final Result [facility] [address] [place] [address], * (ABNORMAL) Urinalysis with reflex microscopic and culture (01/24/2025 9:12 AM EDT) [facility] Specific [place] Urine 1.017 1.003 - 1.030 LAB URINALYSIS - AUTOMATED METHOD 01/24/2025 10:17 AM [facility] pH, Urine 5.5 5.0 - 8.0 pH LAB URINALYSIS - AUTOMATED METHOD 01/24/2025 10:17 AM [facility] Leukocytes, Urine Moderate(A) Negative LAB URINALYSIS - AUTOMATED METHOD 01/24/2025 10:17 AM [facility] Nitrite, Urine Positive(A) Negative LAB URINALYSIS - AUTOMATED METHOD 01/24/2025 10:17 AM [facility] Protein, Urine Negative <=Trace mg/dL LAB URINALYSIS - AUTOMATED METHOD 01/24/2025 10:17 AM [facility] Glucose, Urine Negative Negative mg/dL LAB URINALYSIS - AUTOMATED METHOD 01/24/2025 10:17 AM [facility] Ketones, Urine Negative Negative mg/dL LAB URINALYSIS - AUTOMATED METHOD 01/24/2025 10:17 AM [facility] Urobilinogen , Urine 0.2 0.2 - 1.0 mg/dL LAB URINALYSIS - AUTOMATED METHOD 01/24/2025 10:17 AM [facility] Bilirubin, Urine Negative Negative LAB URINALYSIS - AUTOMATED METHOD 01/24/2025 10:17 AM [facility] Blood, Urine Negative Negative LAB URINALYSIS - AUTOMATED METHOD 01/24/2025 10:17 AM [facility] RBC, Urine 1.7 0 - 4 /HPF LAB URINALYSIS - AUTOMATED METHOD 01/24/2025 10:17 AM [facility] WBC, Urine 24.9(H) 0 - 4 /HPF LAB URINALYSIS - AUTOMATED METHOD 01/24/2025 10:17 AM [facility] Squamous Epithelial, Urine 16 0 - 60 /LPF LAB URINALYSIS - AUTOMATED METHOD 01/24/2025 10:17 AM [facility] Bacteria, Urine Many(A) Negative /HPF LAB URINALYSIS - AUTOMATED METHOD 01/24/2025 10:17 AM [facility] Hyaline Casts, Urine 2.4 0 - 3 /LPF LAB URINALYSIS - AUTOMATED METHOD 01/24/2025 10:17 AM [facility] Urine Urine specimen obtained by clean catch procedure / Unknown Non-blood Collection / Unknown 01/24/2025 9:12 AM EDT 01/24/2025 9:12 AM EDT us Lizzy Mittal MD LAB URINE ORDERABLES Final Result [facility] [address] [place] [address], [place] [phone] * Pozo urine culture tube (01/24/2025 9:12 AM EDT) Extra Tube Hold for add-ons. 01/24/2025 11:01 AM EDT [facility] Comment:Auto resulted. Urine Urine specimen obtained by clean catch procedure / Unknown Non-blood Collection / Unknown 01/24/2025 9:12 AM EDT 01/24/2025 9:12 AM EDT us Lizzy Mittal MD LAB URINE ORDERABLES Final Result [facility] [address] [place] [address], * (ABNORMAL) Culture urine (01/24/2025 9:12 AM EDT) Culture, Urine >=100,000 CFU/mL Escherichia coli(A) LEMUEL 01/26/2025 10:44 AM EDT [facility] Urine Urine specimen obtained by clean [...] LAB MICROBIOLOGY - GENERAL ORDERABLES Final Result [facility] ([facility]) [facility] [address] [place] [address], [place] [phone] * NM LEXISCAN STRESS TEST W/ MYOCARDIAL [...] Diagnost ic Narrative 12/25/2024 1:02 PM EDT [facility] DIAGNOSTIC TESTING DEPARTMENT [address] [place] [address] TEL: FAX: Type of Test: 24 Hour Holter Monitor Date of Test: 12/21/2024 Ordering Provider: Joan Root MD Reason for Test: PVC's (premature ventricular contractions) PVCA Waist Pleater Findings: 1: Normal Sinus Rhythm. 2: Rare PACs, aberrant beats, and atrial pairs. 3: Frequent PVCs, ventricular bigeminy, and couplets. Rare ventricular trigeminy and triplets. PVC [place] was 13.2%. 4: No significant pauses noted, [...] renal or bladder abnormality identified. POS - [id number] -------- FINAL REPORT -------- Dictated By: Catherine Hardin Dictated Date: 12/19/2024 11:28 ET Assigned Physician: Catherine Hardin Reviewed and Electronically Signed By: Catherine Hardin Signed Date: 12/19/2024 11:31 ET Workstation ID: [id number] Transcribed By: Self Edit Transcribed Date: 12/19/2024 [...] renal or bladder abnormality identified. POS - [id number] -------- FINAL REPORT -------- Dictated By: Catherine Hardin Dictated Date: 12/19/2024 11:28 ET Assigned Physician: Catherine Hardin Reviewed and Electronically Signed By: Catherine Hardin Signed Date: 12/19/2024 11:31 ET Workstation ID: [id number] Transcribed By: Self Edit Transcribed Date: 12/19/2024 11:28 ET us Lizzy Mittal MD IM US PROCEDURES Final Res ult * (ABNORMAL) Basic metabolic panel (12/11/2024 2:02 PM EDT) Sodium 138 133 - 145 mmol/L LAB CHEMISTRY METHOD 12/11/2024 3:15 PM EDT [facility] Potassium 4.1 3.5 - 5.5 mmol/L LAB CHEMISTRY METHOD 12/11/2024 3:15 PM EDT [facility] Chloride 105 96 - 110 mmol/L LAB CHEMISTRY METHOD 12/11/2024 3:15 PM EDT [facility] CO2 26 21 - 32 mmol/L LAB CHEMISTRY METHOD 12/11/2024 3:15 PM EDT [facility] Anion Gap 7 3 - 11 LAB CHEMISTRY METHOD 12/11/2024 3:15 PM EDT [facility] Glucose 90 70 - 100 mg/dL LAB CHEMISTRY METHOD 12/11/2024 3:15 PM EDT [facility] BUN 18 5 - 25 mg/dL LAB CHEMISTRY METHOD 12/11/2024 3:15 PM EDT [facility] Creatinine 1.40(H) 0.50 - 1.10 mg/dL LAB CHEMISTRY METHOD 12/11/2024 3:15 PM EDT [facility] eGFR 39(L) >=60 mL/min/1. 73m2 LAB CHEMISTRY METHOD 12/11/2024 3:15 PM EDT [facility] Comment:Calculation based on the Chronic Kidney Disease Epidemiology Collaboration (CKD-EPI) equation refit without adjustment for race. BUN/Creatinine Ratio 12.9 LAB CHEMISTRY METHOD 12/11/2024 3:15 PM EDT [facility] Calcium 9.7 8.5 - 10.5 mg/dL LAB CHEMISTRY METHOD 12/11/2024 3:15 PM EDT [facility] Blood Venous blood specimen / Unknown Venipuncture / Unknown 12/11/2024 2:02 PM EDT 12/11/2024 2:10 PM EDT us Lizzy Mittal MD LAB BLOOD ORDERABLES Final Result [facility] [address] [place] [address], * Pathologist Review Immunofixation (12/11/2024 2:00 PM EDT) Pathologist Interpretation Kirsten Resendez MD 12/13/2024 3:19 PM EDT [facility] Blood Venous blood specimen / Unknown Venipuncture / Unknown 12/11/2024 2:00 PM EDT 12/11/2024 2:09 PM EDT us Joan Root MD LAB BLOOD ORDERABLES Final Resul t Performing Organization Address [facility]/ZIP Co de Phone Number [facility] [address] [place] [address], [place] [phone] * (ABNORMAL) [place]-lambda free light chains, quantitative (12/11/2024 2:00 PM EDT) [place] Free Light Chain 3.42(H) 0.33 - 1.94 mg/dL 12/14/2024 12:[address] [facility] Lambda Free Light Chain 2.39 0.57 - 2.63 mg/dL 12/14/2024 12:[address] [facility] Grass [place]/Lambda FLC Ratio 1.43 0.26 - 1.65 12/14/2024 12:[address] [facility] Comment: Test performed at [facility], [address], [place] [address] Fifi Talbert MD, PhD - [employer] Blood Venous blood specimen / Unknown Venipuncture / Unknown 12/11/2024 2:00 PM EDT 12/11/2024 2:09 PM EDT us Joan Root MD LAB BLOOD ORDERABLES Final Resul t [facility] [address] [place] [address] * Sedimentation rate, automated (12/11/2024 2:00 PM EDT) Sed Rate 25 0 - 30 mm/hr LAB HEMETOLOGY METHOD 12/11/2024 2:30 PM EDT [facility] Blood Venous blood specimen / Unknown Venipuncture / Unknown 12/11/2024 2:00 PM EDT 12/11/2024 2:07 PM EDT Joan Root MD LAB BLOOD ORDERABLES Final Resul t Performing Organization Address City/[facility]/ZIP Co de Phone Number [facility] [address] [place] [address], [place] [phone] * Immunofixation electrophoresis serum (12/11/2024 2:00 PM EDT) [facility] Immunofixation Result, Serum No monoclonal immunoglobulins detected. LAB CHEMISTRY METHOD 12/13/2024 3:19 PM EDT [facility] Blood Venous blood specimen / Unknown Venipuncture / Unknown 12/11/2024 2:00 PM EDT 12/11/2024 2:09 PM EDT Joan Root MD LAB BLOOD ORDERABLES Final Resul t Performing Organization Address [facility] Co de Phone Number [facility] [address] [place] [address], [place] [phone] * Immunoglobulins IgG, IgA, IgM (12/11/2024 2:00 PM EDT) [facility] Total IgG 812 549 - 1,584 mg/dL LAB CHEMISTRY METHOD 12/11/2024 3:19 PM EDT [facility] IgA 111 61 - 348 mg/dL LAB CHEMISTRY METHOD 12/11/2024 3:19 PM EDT [facility] IgM 174 23 - 259 mg/dL LAB CHEMISTRY METHOD 12/11/2024 3:19 PM EDT [facility] Blood Venous blood specimen / Unknown Venipuncture / Unknown 12/11/2024 2:00 PM EDT 12/11/2024 2:09 PM EDT us Joan Root MD LAB BLOOD ORDERABLES Final Resul t Performing Organization Address City/[facility]/ZIP Co de Phone Number [facility] [address] [place] [address], [place] [phone] * High sensitivity CRP (12/11/2024 2:00 PM EDT) [facility] CRP, High Sensitivity 1.08 mg/L LAB CHEMISTRY METHOD 12/11/2024 3:12 PM EDT [facility] Comment: Cardio CRP Relative Risk Categories [...] ORDERABLES Final Resul t Performing Organization Address City/[facility]/ZIP Co de Phone Number [facility] [address] [place] [address], [place] [phone] * ECG 12 lead (12/11/2024 1:10 PM EDT) [facility] Ventricular Rate ECG 82 BPM GEMUSE Atrial Rate 82 BPM GEMUSE QRS Duration 84 ms GEMUSE Q-T Interval 366 ms GEMUSE QTc 427 ms GEMUSE R [place] 28 degrees GEMUSE T [place] 48 degrees GEMUSE ECG Interpretation Sinus rhythm with frequent Premature ventricular complexes Otherwise normal ECG When compared with ECG of 11-OCT-2020 09:31, Premature ventricular complexes are now Present Confirmed by Flor ROOT YUFENG ([id number]) on 12/11/2024 2:14:22 PM GEMUSE 12/11/2024 1:10 PM EDT 12/11/2024 2:14 PM EDT Joan Root MD ECG ORDERABLES Final Result Performing Organization Address City/[facility]/ZIP Co de Phone Number GEMUSE * Interferon gamma interpretation (12/06/2024 8:03 AM EDT) [facility] Signature Quantiferon Plus Interpretation Negative Negative LAB CHEMISTRY METHOD 12/07/2024 10:54 AM EDT [facility] Blood Venous blood specimen / Unknown Venipuncture / Unknown 12/06/2024 8:03 AM EDT 12/06/2024 8:03 AM EDT Lizzy Mittal MD LAB BLOOD ORDERABLES Final Result [facility] [address] [place] [address], [place] [phone] * Interferon gamma antigen 2 (12/06/2024 8:03 AM EDT) Blood Venous blood specimen / Unknown Venipuncture / Unknown 12/06/2024 8:03 AM EDT 12/06/2024 8:03 AM EDT Lizzy Mittal MD LAB BLOOD ORDERABLES Final Result [facility] [address] [place] [address], [place] [phone] * Interferon gamma antigen 1 (12/06/2024 8:03 AM EDT) Blood Venous blood specimen / Unknown Venipuncture / Unknown 12/06/2024 8:03 AM EDT 12/06/2024 8:03 AM EDT Lizzy Mittal MD LAB BLOOD ORDERABLES Final Result [facility] [address] [place] [address], [place] [phone] * Interferon gamma mitogen (12/06/2024 8:03 AM EDT) Blood Venous blood specimen / Unknown Venipuncture / Unknown 12/06/2024 8:03 AM EDT 12/06/2024 8:03 AM EDT us Lizzy Mittal MD LAB BLOOD ORDERABLES Final Result Performing Organization Address [facility]/ZIP Co de Phone Number [facility] [address] [place] [address], [place] [phone] * Interferon gamma NIL (12/06/2024 8:03 AM EDT) Blood Venous blood specimen / Unknown Venipuncture / Unknown 12/06/2024 8:03 AM EDT 12/06/2024 8:03 AM EDT Lizzy Mittal MD LAB BLOOD ORDERABLES Final Result Performing Organization Address [facility] de Phone Number [facility] [address] [place] [address], [place] [phone] * (ABNORMAL) Thyroid stimulating hormone with reflex to free t4 and free t3 (12/06/2024 8:03 AM EDT) TSH 4.76(H) 0.40 - 4.00 mcIU/mL LAB CHEMISTRY METHOD 12/06/2024 12:41 PM EDT [facility] Blood Venous blood specimen / Unknown Venipuncture / Unknown 12/06/2024 8:03 AM EDT 12/06/2024 8:03 AM EDT us Lizzy Mittal MD LAB BLOOD ORDERABLES Final Result Performing Organization Address [facility] Co de Phone Number [facility] [address] [place] [address], [place] [phone] * Free thyroxine with reflex to free triiodothyronine (12/06/2024 8:03 AM EDT) Free T4 1.38 0.70 - 1.80 ng/dL LAB CHEMISTRY METHOD 12/06/2024 1:54 PM EDT [facility] Blood Venous blood specimen / Unknown Venipuncture / Unknown 12/06/2024 8:03 AM EDT 12/06/2024 8:03 AM EDT Lizzy Mittal MD LAB BLOOD ORDERABLES Final Result Performing Organization Address City/[facility]/ZIP Co de Phone Number [facility] [address] [place] [address], [place] [phone] * Lipid panel with reflex to direct LDL (12/06/2024 8:03 AM EDT) Cholesterol 149 0 - 200 mg/dL LAB CHEMISTRY METHOD 12/06/2024 11:35 AM EDT [facility] Triglycerides 129 0 - 150 mg/dL LAB CHEMISTRY METHOD 12/06/2024 11:35 AM EDT [facility] HDL 59 >=40 mg/dL LAB CHEMISTRY METHOD 12/06/2024 11:35 AM EDT [facility] LDL Calculated 64 0 - 100 mg/dL LAB CHEMISTRY METHOD 12/06/2024 11:35 AM EDT [facility] VLDL Cholesterol Ranulfo 25.8 mg/dL LAB CHEMISTRY METHOD 12/06/2024 11:35 AM T [facility] Non HDL Chol. (LDL+VLDL) 90 <145 mg/dL LAB CHEMISTRY METHOD 12/06/2024 11:35 AM EDT [facility] Chol/HDL Ratio 2.5 0.0 - 4.4 LAB CHEMISTRY METHOD 12/06/2024 11:35 AM T [facility] Blood Venous blood specimen / Unknown Venipuncture / Unknown 12/06/2024 8:03 AM EDT 12/06/2024 8:03 AM EDT Lizzy Mittal MD LAB BLOOD ORDERABLES Final Result Performing Organization Address City/[facility]/ZIP Co de Phone Number [facility] [address] [place] [address], * (ABNORMAL) CBC auto differential (12/06/2024 8:03 AM EDT) [facility] WBC 3.6(L) 4.8 - 10.8 K/mcL LAB HEMETOLOGY METHOD 12/06/2024 11:04 AM [facility] RBC 4.00 3.80 - 4.80 M/mcL LAB HEMETOLOGY METHOD 12/06/2024 11:04 AM [facility] Hemoglobin 9.9(L) 11.5 - 16.0 g/dL LAB HEMETOLOGY METHOD 12/06/2024 11:04 AM [facility] Hematocrit 34.0(L) 35.0 - 47.0 % LAB HEMETOLOGY METHOD 12/06/2024 11:04 AM [facility] MCV 85.4 79.0 - 98.0 FL LAB HEMETOLOGY METHOD 12/06/2024 11:04 AM [facility] MCH 24.9(L) 27.0 - 32.0 pcg LAB HEMETOLOGY METHOD 12/06/2024 11:04 AM [facility] MCHC 29.1(L) 32.0 - 37.0 g/dL LAB HEMETOLOGY METHOD 12/06/2024 11:04 AM [facility] RDW 16.0(H) 11.0 - 15.0 % LAB HEMETOLOGY METHOD 12/06/2024 11:04 AM [facility] Platelets 197 130 - 400 K/mcL LAB HEMETOLOGY METHOD 12/06/2024 11:04 AM [facility] MPV 11.8(H) 7.0 - 11.0 FL LAB HEMETOLOGY METHOD 12/06/2024 11:04 AM [facility] NRBC 0.0 <1.0 % LAB HEMETOLOGY METHOD 12/06/2024 11:04 AM [facility] NRBC Absolute 0.00 <0.10 K/mcL LAB HEMETOLOGY METHOD 12/06/2024 11:04 AM [facility] Neutrophils Relative 65.7 % LAB HEMETOLOGY METHOD 12/06/2024 11:04 AM [facility] Lymphocytes Relative 16.2 % LAB HEMETOLOGY METHOD 12/06/2024 11:04 AM [facility] Monocytes Relative 11.8 % LAB HEMETOLOGY METHOD 12/06/2024 11:04 AM [facility] Eosinophils Relative 5.2 % LAB HEMETOLOGY METHOD 12/06/2024 11:04 AM [facility] Basophils Relative 0.8 % LAB HEMETOLOGY METHOD 12/06/2024 11:04 AM [facility] Immature Granulocytes Relative 0.3 % LAB HEMETOLOGY METHOD 12/06/2024 11:04 AM [facility] Neutrophils Absolute 2.39 1.50 - 7.00 K/mcL LAB HEMETOLOGY METHOD 12/06/2024 11:04 AM [facility] Lymphocytes Absolute 0.59(L) 1.00 - 5.00 K/mcL LAB HEMETOLOGY METHOD 12/06/2024 11:04 AM [facility] Monocytes Absolute 0.43 0.20 - 1.00 K/mcL LAB HEMETOLOGY METHOD 12/06/2024 11:04 AM [facility] Eosinophils Absolute 0.19 0.00 - 0.50 K/mcL LAB HEMETOLOGY METHOD 12/06/2024 11:04 AM [facility] Basophils Absolute 0.03 0.00 - 0.20 K/mcL LAB HEMETOLOGY METHOD 12/06/2024 11:04 AM [facility] Immature Granulocytes Absolute 0.01 0.00 - 0.03 K/mcL LAB HEMETOLOGY METHOD 12/06/2024 11:04 AM EDT [facility] Blood Venous blood specimen / Unknown Venipuncture / Unknown 12/06/2024 8:03 AM EDT 12/06/2024 8:03 AM EDT Lizzy Mittal MD LAB BLOOD ORDERABLES Final Result [facility] [address] [place] [address], [place] [phone] * (ABNORMAL) Iron and TIBC (12/06/2024 8:03 AM EDT) Iron 28(L) 40 - 150 mcg/dL LAB CHEMISTRY METHOD 12/06/2024 11:35 AM EDT [facility] TIBC 589(H) 250 - 450 mcg/dL LAB CHEMISTRY METHOD 12/06/2024 11:35 AM EDT [facility] [facility] Iron Saturation 5(L) 15 - 50 % LAB CHEMISTRY METHOD 12/06/2024 11:35 AM EDT [facility] Blood Venous blood specimen / Unknown Venipuncture / Unknown 12/06/2024 8:03 AM EDT 12/06/2024 8:03 AM EDT Lizzy Mittal MD LAB BLOOD ORDERABLES Final Result Performing Organization Address City/[facility]/ZIP Co de Phone Number [facility] [address] [place] [address], [place] [phone] * Triiodothyronine free (12/06/2024 8:03 AM EDT) T3, Free 304 230 - 420 pcg/dL LAB CHEMISTRY METHOD 12/06/2024 2:20 PM EDT [facility] Blood Venous blood specimen / Unknown Venipuncture / Unknown 12/06/2024 8:03 AM EDT 12/06/2024 8:03 AM EDT Lizzy Mittal MD LAB BLOOD ORDERABLES Final Result Performing Organization Address [facility]/ZIP Co de Phone Number [facility] [address] [place] [address], [place] [phone] * (ABNORMAL) B-type natriuretic peptide (12/06/2024 8:03 AM EDT) BNP 220(H) <=100 pcg/mL LAB CHEMISTRY METHOD 12/06/2024 11:26 AM EDT [facility] Blood Venous blood specimen / Unknown Venipuncture / Unknown 12/06/2024 8:03 AM EDT 12/06/2024 8:03 AM EDT Lizzy Mittal MD LAB BLOOD ORDERABLES Final Result Performing Organization Address [facility]/ZIP Nh de Phone Number [facility] [address] [place] [address], [place] [phone] * Vitamin B12 (12/06/2024 8:03 AM EDT) Pathologist [facility] Vitamin B-12 366 250 - 900 pcg/mL LAB CHEMISTRY METHOD 12/06/2024 11:35 AM EDT [facility] Blood Venous blood specimen / Unknown Venipuncture / Unknown 12/06/2024 8:03 AM EDT 12/06/2024 8:03 AM EDT us Lizzy Mittal MD LAB BLOOD ORDERABLES Final Result Performing Organization Address City/[facility]/ZIP Co de Phone Number [facility] [address] [place] [address], [place] [phone] * (ABNORMAL) Comprehensive metabolic panel (12/06/2024 8:03 AM EDT) Sodium 139 133 - 145 mmol/L LAB CHEMISTRY METHOD 12/06/2024 11:35 AM [facility] Potassium 4.1 3.5 - 5.5 mmol/L LAB CHEMISTRY METHOD 12/06/2024 11:35 AM [facility] Chloride 107 96 - 110 mmol/L LAB CHEMISTRY METHOD 12/06/2024 11:35 AM [facility] CO2 26 21 - 32 mmol/L LAB CHEMISTRY METHOD 12/06/2024 11:35 AM [facility] Anion Gap 6 3 - 11 LAB CHEMISTRY METHOD 12/06/2024 11:35 AM [facility] Glucose 94 70 - 100 mg/dL LAB CHEMISTRY METHOD 12/06/2024 11:35 AM [facility] BUN 17 5 - 25 mg/dL LAB CHEMISTRY METHOD 12/06/2024 11:35 AM [facility] Creatinine 1.32(H) 0.50 - 1.10 mg/dL LAB CHEMISTRY METHOD 12/06/2024 11:35 AM [facility] eGFR 42(L) >=60 mL/min/1. 73m2 LAB CHEMISTRY METHOD 12/06/2024 11:35 AM [facility] Comment:Calculation based on the Chronic Kidney Disease Epidemiology Collaboration (CKD-EPI) equation refit without adjustment for race. BUN/Creatinine Ratio 12.9 LAB CHEMISTRY METHOD 12/06/2024 11:35 AM [facility] Calcium 9.1 8.5 - 10.5 mg/dL LAB CHEMISTRY METHOD 12/06/2024 11:35 AM [facility] AST (SGOT) 32 10 - 42 unit/L LAB CHEMISTRY METHOD 12/06/2024 11:35 AM [facility] ALT (SGPT) 40 10 - 60 unit/L LAB CHEMISTRY METHOD 12/06/2024 11:35 AM EDT [facility] Alkaline Phosphatase 55 42 - 121 unit/L LAB CHEMISTRY METHOD 12/06/2024 11:35 AM EDT [facility] Total Protein 6.4 6.0 - 8.0 g/dL LAB CHEMISTRY METHOD 12/06/2024 11:35 AM EDT [facility] Albumin 3.4 3.2 - 5.0 g/dL LAB CHEMISTRY METHOD 12/06/2024 11:35 AM EDT [facility] Total Bilirubin 0.4 0.0 - 1.4 mg/dL LAB CHEMISTRY METHOD 12/06/2024 11:35 AM EDT [facility] Blood Venous blood specimen / Unknown Venipuncture / Unknown 12/06/2024 8:03 AM EDT 12/06/2024 8:03 AM EDT us Lizzy Mittal MD LAB BLOOD ORDERABLES Final Result [facility] [address] [place] [address], [place] [phone] * (ABNORMAL) TRANSTHORACIC ECHOCARDIOGRAM (TTE) COMPLETE (11/27/2024 [...] 58 mL CV PACS Left [facility] Minor [place] 4.9 cm CV PACS Left [facility] Major [place] 5.5 cm CV PACS [place] Area Sys [...] Gradient 118 mmHg CV PACS MV Deceleration [facility] 4.1 m/s2 CV PACS E Wave Deceleration [...] Details Overall the study quality was adequate. Lizzy Mittal MD CV ECHO PROCEDURES Final [...] MD PFT ORDERABLES Final Resul t * LUIGI SCREENING DIGITAL (09/10/2017 4:30 PM EDT) Anatomical Region Laterality Modality Mammography 09/10/2017 1:23 PM EDT Narrative 09/10/2017 4:30 PM EDT [facility] Diagnostic Imaging Department [address] [place] [id number] Patient: RONA BROWN /Age/Sex: 1950 - 67 - F Unit#: [id number] Location/Status: SPDIMA/REG CLI Mnemonic/Ordering Site: [facility] Ordering Physician: NICOLASA SOTO MD [facility] Screening Digital - 09/10/17 - 1344 EXAM: [facility] Screening Digital EXAM DATE AND [...] mammogram BILATERAL in 1 year. COMMENTS: None. [id number], [id number], [id number], 9400F Dictating Physician: CALROS MESA MD Electronically Signed by: CARLOS MESA MD Dic Date/Time: 09/10/17 1621 Sign date/Time: 09/10/17 1630 Procedure Note Carlos Mesa MD - 05/12/2022 [facility] Diagnostic Imaging Department [address] [place] [id number] Patient: RONA BROWN Keya /Age/Sex: 1950 - 67 - F Unit#: [id number] Location/Status: SPDIMAM/REG CLI Mnemonic/Ordering Site: [facility] Ordering Physician: NICOLASA SOTO MD [facility] Screening Digital - 09/10/17 - 1344 EXAM: [facility] Screening Digital EXAM DATE AND TIME: 09/10/2017 1:44 PM HISTORY: Previous benign bilateral breast procedures, the most recent [id number]. First degree family history of breast cancer [...] mammogram BILATERAL in 1 year. COMMENTS: None. 14009, [id number], 3342F, 7067F Dictating Physician: CARLOS MESA MD Electronically Signed by: CARLOS MESA MD Dic Date/Time: 09/10/17 1621 Sign date/Time: 09/10/17 1630 Nicolasa Soto IMG BI PROCEDURES Final Result * [facility] DEXA AXIAL SKELETON (09/02/2017 1:58 PM EDT) Anatomical Region Laterality Modality Mammography 09/02/2017 12:5 4 PM EDT Narrative 09/02/2017 1:58 PM EDT [facility] Diagnostic Imaging Department [address] [place] [id number] Patient: RONA BROWN Keya DesirB./Age/Sex: 1950 - 67 - F Unit#: [id number] [facility]Ordering Site: [facility] Ordering Physician: NICOLASA SOTO MD [facility] Dexa [...] probability of hip fracture of 2.8%. Code 14535 Dictating Physician: NAHUN GONZALEZ MD Electronically Signed by: NAHUN GONZALEZ MD Dic Date/Time: 09/02/17 1356 Sign date/Time: 09/02/17 1356 Procedure Note Nahun Gonzalez MD - 05/12/2022 [facility] Diagnostic Imaging Department [address] [place] [address] Patient: RONA BROWN Keya Tiwari./Age/Sex: 1950 - 67 - F Unit#: [id number] Location/Status: [facility]emonic[facility] Ordering Physician: NICOLASA SOTO MD [facility] Dexa Axial Skeleton - 09/02/17 - 1327 [...] density of the femurs bilaterally is 0.721 gm/dz8mannr is 72% of that of young normals [...] probability of hip fracture of 2.8%. Code 98271 Dictating Physician: NAHUN GONZALEZ MD Electronically Signed by: NAHUN GONZALEZ MD Dic Date/Time: 09/02/17 1356 Sign date/Time: 09/02/17 1358 Nicolasa Soto IM BI PROCEDURES Final Result from Last 3 Months or Most Recently Relevant to Health Maintenance Insurance [employer] Care Teams Decaler Relationship Specialty Start Date End Date Lizzy Mittal MD [address] [place] [address] PCP - General Internal Medicine 11/07/24
--- OUTSIDE RECORDS SUMMARY | 2025-02-20 11:39 | XMS_ITS | Clinical Summary ---
Author Organization [facility] Address [address] [place] [address] Care Team Providers Care [employer] Name Role Phone Nicolasa Soto MD Primary Care Provider [phone] Medications Medication Sig Dispensed Refills Start Date [...] age to complete this topic Care Teams [employer] Relationship Specialty Start Date End Date Nicolasa Soto MD [address] [place] [address] PCP - General Internal Medicine 05/26/17
[2025-02-20 12:27] LABS: Albumin Level 4.3 g/dL (3.5-5.0); Calcium 9.6 mg/dL (8.4-10.2)
== END 2025-02-20 10:28 | disposition home or self-care (01) ==
LOC: HO.LAB 10:27
PROVIDERS: Visit Provider Internal Medicine Endocrinology, Diabetes & Metabolism
DX: M81.0 Age-related osteoporosis without current pathological fracture (principal)
CPT/HCPCS: 36415; 82040; 82310